=== PATIENT | male | born 1940 | race Caucasian/White ===

== ENCOUNTER → 2016-05-07 | Day surgery (SDC) | payer OTHER ==
[2016-05-03 15:43] VITALS: Ht 170.2 cm; Wt 68.6 kg
[~2016-05-07] VITALS: Ht 170.2 cm; Wt 68.6 kg
[~2016-05-07] MED LIST: ALPR-411 PO; AMIO200T4 PO; APR/25 PO; APR50 PO; ASPI-435 PO; CARV25TA2 PO; CHOL1000 PO; CITA20TA9 PO; CLOP1TAB15 PO; CLR10 PO; CTP1X PO; CYNI1000 IM; DOCU-94 PO; FLUT0.15 NAE; FLV1 PO; FURO-85 PO; GUAI1TAB68 PO; LEVO50TA6 PO; LIDOCAINE HCL 2% 2 ML VIAL (20MG/ML) ONE; LOSA50TA6 PO; MELA1TAB5 PO; MIDAZOLAM HCL 1 MG/ML 2ML VIAL ONE; MULT-513 PO; MULT-845 PO; PANT40TA PO; POLY335019 PO; POTA1POW PO; POTA20TA16 PO; PRAV20TA PO; PROM12.57 PO; PROPOFOL IV EMULSION 10 MG/ML 20 ML VIAL IV ONE; PRVC/20 PO; SDMC1 PO; SODIUM CHLORIDE 0.9% 500ML 500 ML IV ONE; SULF500T36 PO; TAMS0.4C38 PO; TRAZ50TA35 PO; VITAMIN B12 INJ INJ
--- NOTE | 2016-05-07 10:14 | Endo History and Physical ---
History & Physical Date of Service: May 07, 2016. Chief Complaint: Dysphagia, Esohageal stricture Referring Physician: Dr Agee History of Present Illness History of ulcerative colitis, dysphagia Past Medical History Gastrointestinal Disorder, Anxiety, CABG, Hypertension, CVA/TIA Past Surgical History Hx Cardiac Surgery: Yes (CABG X3 VESSELS) Hx Internal Defibrillator: No Hx Pacemaker: No Hx Abdominal Surgery: Yes (PARTIAL GASTRECTOMY) Hx of Implantable Prosthesis: No Hx Post-Op Nausea and Vomiting: No Hx Cancer Surgery: No Hx Thoracic Surgery: No Hx Orthopedic: Yes (BLT FOOT SURGERY, BACK SURGERY X2, RT SHOULDER SCOPE) Hx Urinary Tract Surgery: No Family History None Social History Smoking Status: Former Smoker Hx Substance Use: No Hx Alcohol Use: No Allergies Coded Allergies: Amlodipine (Unverified Adverse Reaction, Intermediate, lower leg edema, 05/07/16) Pseudoephedrine (Verified Adverse Reaction, Mild, INTOLERANCE-URINARY RETENTION, 05/07/16) Current Medications Reported Home Medications Medications Dose Route/Sig Max Daily Dose Days Date Category Dose Instructions Flonase Allergy Relief (Fluticasone Propionate (Nasal)) 50 Mcg/Act Spr 2 Sprays CASEY QAM 04/22/16 Reported Mvi With Minerals (Multivitamins/Minerals) Tab 1 Tab PO QAM 04/22/16 Reported [Vitamin B12 Inj] 1 Dose INJ QMONTH 02/23/16 Reported LAST INJECTION 05-03-16 Centrum Silver Adult 50+ (Multiple Vitamins W/ Minerals) 1 Tab Tab 1 Tab PO QAM 02/23/16 Reported Phenergan (Promethazine HCl) 12.5 Mg Tab 25 Mg PO Q6H PRN 02/23/16 Reported PATIENT DAUGHTER REPORTS DR BOOKER PRESCRIBED FOR PATIENT FOLLOWING SURGERY - NOT CURRENTLY TAKING Colace (Docusate Sodium) 100 Mg Cap 1 Cap PO BID PRN 02/23/16 Reported Klor-Con Pwd (Potassium Chloride) 20 Meq Pack 20 Meq PO QAM 12/13/15 Reported Sodium Chloride 1 Gm Tab 1 Gm PO BID 12/13/15 Reported Cordarone (Amiodarone Hcl) 200 Mg Tab 200 Mg PO QAM 12/13/15 Reported Celexa (Citalopram Hydrobromide) 20 Mg Tab 30 Mg PO 1300 PRN 12/13/15 Reported Protonix (Pantoprazole Sodium) 40 Mg Tab 40 Mg PO 1300 12/13/15 Reported Hydralazine HCl 25 Mg Tab 25 Mg PO BID 12/13/15 Reported Cozaar (Losartan Potassium) 50 Mg Tab 100 Mg PO QAM 12/13/15 Reported Trazodone (Trazodone HCl) 50 Mg Tab 50 Mg PO HS PRN 12/13/15 Reported Clonidine HCl 0.1 Mg Tab 0.2 Mg PO BID 10/06/15 Reported Xanax (Alprazolam) 0.5 Mg Tab 0.5 Mg PO BID PRN 10/06/15 Reported Plavix (Clopidogrel Bisulfate) 75 Mg Tab 75 Mg PO QAM 10/06/15 Reported Pravastatin Sodium (Pravastatin Sod) 20 Mg Tab 20 Mg PO HS 10/06/15 Reported Aspirin 81 (Aspirin) 81 Mg Tab 81 Mg PO QAM 10/06/15 Reported Coreg (Carvedilol) 25 Mg Tab 0.5 Tab PO BID PRN 12/22/13 Reported ONLY IF PULSE >60 Folic Acid 1 Mg Tab 1 Mg PO QPM 12/22/13 Reported Azulfidine (Sulfasalazine) 500 Mg Tab 500 Mg PO QID 08/05/08 Reported Vital Signs Weight (Kilograms): 68.64 Height (Feet): 5 Height (Inches): 7 Date Time Temp Pulse Resp B/P Pulse Ox O2 Delivery O2 Flow Rate FiO2 05/07/16 08:45 36.2 75 16 241/119 94 Room Air Physical Exam General Appearance: WD/WN, no apparent distress (chronically ill appearing) Respiratory/Chest: Auscultation: breath sounds normal, no wheezing Cardiovascular: Heart Auscultation: RRR, no murmurs Assessment and Plan For EGD and colonoscopy.
--- NOTE | 2016-05-07 11:20 | Anesthesiology Progress Note ---
Anesthesia Post Op Note Date & Time May 07, 2016 at 11:20 Vital Signs Pain Intensity: 0 Vital Signs Past 12 Hours Date Time Temp Pulse Resp B/P Pulse Ox O2 Delivery O2 Flow Rate FiO2 05/07/16 08:45 36.2 75 16 241/119 94 Room Air Notes Mental Status: alert / awake / arousable, participated in evaluation Pt Amnestic to Procedure: Yes Nausea / Vomiting: adequately controlled Pain: adequately controlled Airway Patency, RR, SpO2: stable & adequate BP & HR: stable & adequate Hydration State: stable & adequate Anesthetic Complications: no major complications apparent
--- NOTE | 2016-05-07 11:25 | Discharge Instructions ---
Endoscopy Patient Instructions Date / Procedure(s) Performed May 07, 2016. Colonoscopy, EGD Allergy Information Coded Allergies: Amlodipine (Unverified Adverse Reaction, Intermediate, lower leg edema, 05/07/16) Pseudoephedrine (Verified Adverse Reaction, Mild, INTOLERANCE-URINARY RETENTION, 05/07/16) Discharge Date / Findings May 07, 2016. Lorena esophagitis, normal appearing colon Medication Instructions Stopped Medication(s): PLAVIX Restart Stopped Medication(s): Restart all medications today. Provider Instructions Activity Restrictions - No exercising or heavy lifting for 24 hours. - Do not drink alcohol the day of the procedure. - Do not drive a car or operate machinery until the day after the procedure. - Do not make any important decisions or sign important papers in 24 hours after the procedure. Following Day: - Return to full activity which may include returning to work/school. Diet Start your diet with liquids and light foods (jello, soup, juice, toast). Then eat your usual diet if not nauseated. Treatment For Common After Affects For mild abdominal pain, bloating, or excessive gas: - Rest - Eat lightly - Lie on right side Nystatin swish and swallow for two weeks Follow-Up Information Follow-up with Dr Agee as scheduled Anesthesia Information What You Should Know You have had a procedure that required some medicine to reduce anxiety and discomfort. This treatment is called moderate sedation. After receiving the treatment, you may be sleepy, but you will be able to breathe on your own. The effects of the treatment may last for several hours. Follow these instructions along with Activity/Diet recommendations noted above: * Do NOT do anything where dizziness or clumsiness would be dangerous. * Rest quietly at home today, then you can be up and about tomorrow. * Have a responsible person stay with you the rest of today. * You may have had an I.V. today. If so, you may take the dressing off later today. Recommendations Call your doctor if: * Trouble breathing * Continuous vomiting for more than 24 hours * Temperature above 101 degrees * Severe abdominal pain or bloating * Pain not relieved by pain medicine ordered * There is increased drainage or redness from any incision * A large amount of rectal bleeding greater than 2-3 tablespoons. (If you had a polyp/s removed or have hemorrhoids, a small amount of blood - from the rectum is to be expected.) * You have any unanswered questions or concerns. IN THE EVENT OF A SERIOUS EMERGENCY, GO TO THE NEAREST EMERGENCY ROOM Your discharge instructions were prepared by provider Fabrice Ba. Patient Instructions Signature Page Gustavo Gonzales Patient (or Guardian) Signature/Date: I have read and understand the instructions given to me by my caregivers. Caregiver/RN/Doctor Signature/Date: The above-named patient and/or guardian has received patient instructions on this date. + Original Patient Signature Page (only) stays with chart. Please make copy for patient.
[2016-05-07 11:48] VITALS: BP 206/95; PULSE 67; O2SAT 96
--- NOTE | 2016-05-08 00:45 | GI REPORT ---
Procedure Date: 05/07/2016 9:37 AM Procedure: Colonoscopy Indications: High risk colon cancer surveillance: Ulcerative left sided colitis Medicines: Monitored Anesthesia Care Complications: No immediate complications. Estimated blood loss: None. Estimated Blood Loss: Estimated blood loss: none. Procedure: Pre-Anesthesia Assessment: - Prior to the procedure, a History and Physical was performed, and patient medications, allergies and sensitivities were reviewed. The patient's tolerance of previous anesthesia was reviewed. - ASA Grade Assessment: IV - A patient with severe systemic disease that is a constant threat to life. After I obtained informed consent, the scope was passed under direct vision. Throughout the procedure, the patient's blood pressure, pulse, and oxygen saturations were monitored continuously. The On-site loaner was introduced through the anus and advanced to the cecum, identified by appendiceal orifice and ileocecal valve. The colonoscopy was performed with difficulty due to unsatisfactory bowel prep. The patient tolerated the procedure well. The quality of the bowel preparation was fair. The bowel preparation used was split dose MIralax. Findings: Normal mucosa was found in the entire colon. Two biopsies were taken every 10 cm with a cold forceps from the entire colon for ulcerative colitis surveillance. These biopsy specimens from the entire colon were sent to Pathology. Verification of patient identification for the specimen was done by the physician and nurse using the patient's name, date and medical record number. Impression: - Normal mucosa in the entire examined colon. Biopsied. - The colon was otherwise normal to the terminal ileum with retroflexed views of the colon and terminal ileum. Recommendation: - Await pathology results. Fabrice Ba M.D. Fabrice Ba MD 05/07/2016 11:14:00 AM This report has been signed electronically. Note Initiated On: 05/07/2016 9:37 AM I attest to the content of the Intraoperative Record and orders documented therein, exceptions below
--- NOTE | 2016-05-08 00:45 | GI REPORT ---
Procedure Date: 05/07/2016 9:38 AM Procedure: Upper GI endoscopy Indications: Dysphagia Medicines: Monitored Anesthesia Care Complications: No immediate complications. Estimated blood loss: None. Estimated Blood Loss: Estimated blood loss: none. Procedure: Pre-Anesthesia Assessment: - Prior to the procedure, a History and Physical was performed, and patient medications, allergies and sensitivities were reviewed. The patient's tolerance of previous anesthesia was reviewed. - ASA Grade Assessment: IV - A patient with severe systemic disease that is a constant threat to life. After obtaining informed consent, the endoscope was passed under direct vision. Throughout the procedure, the patient's blood pressure, pulse, and oxygen saturations were monitored continuously. The Scope was introduced through the mouth, and advanced to the second part of duodenum. The upper GI endoscopy was accomplished with ease. The patient tolerated the procedure well. Findings: Esophagitis was found. Cells for cytology were obtained by brushing. The Z-line was regular and was found 38 cm from the incisors. A small hiatus hernia was present. Evidence of a patent Billroth I gastroduodenostomy was found. A gastric pouch with a normal size was found containing bile. The gastroduodenal anastomosis was characterized by healthy appearing mucosa. This was traversed. The examined duodenum was normal. Verification of patient identification for the specimen was done by the physician and nurse using the patient's name, date and medical record number. Impression: - Candidiasis esophagitis. Cells for cytology obtained. - Z-line regular, 38 cm from the incisors. - Small hiatus hernia. - Patent Billroth I gastroduodenostomy was found, characterized by healthy appearing mucosa. - Normal examined duodenum. Recommendation: - Await pathology results. - Perform a colonoscopy today. Fabrice Ba M.D. Fabrice Ba MD 05/07/2016 11:03:11 AM This report has been signed electronically. Note Initiated On: 05/07/2016 9:38 AM I attest to the content of the Intraoperative Record and orders documented therein, exceptions below
== END | disposition home or self-care (01) ==
LOC: C.GI 08:14
PROVIDERS: ATTEND Internal Medicine Gastroenterology
DX: Z12.11 Encounter for screening for malignant neoplasm of colon (principal); K63.89 Other specified diseases of intestine; K51.90 Ulcerative colitis, unspecified, without complications; B37.81 Candidal esophagitis; R13.10 Dysphagia, unspecified; K44.9 Diaphragmatic hernia without obstruction or gangrene; Z98.0 Intestinal bypass and anastomosis status

== ENCOUNTER 2016-09-08 19:04 | Inpatient (IN) | payer OTHER ==
[~2016-09-08] VITALS: Ht 167.6 cm; Wt 64.6 kg
[~2016-09-08 19:04] MED LIST changes: -APR50 PO; -CHOL1000 PO; -CLR10 PO; -CYNI1000 IM; -FURO-85 PO; -GUAI1TAB68 PO; -LEVO50TA6 PO; -LIDOCAINE HCL 2% 2 ML VIAL (20MG/ML) ONE; -MELA1TAB5 PO; -MIDAZOLAM HCL 1 MG/ML 2ML VIAL ONE; -POLY335019 PO; -POTA20TA16 PO; -PRAV20TA PO; -PROPOFOL IV EMULSION 10 MG/ML 20 ML VIAL IV ONE; -SODIUM CHLORIDE 0.9% 500ML 500 ML IV ONE; -TAMS0.4C38 PO
[2016-09-08] MEDS ORDERED: SODIUM CHLORIDE 0.9% 1000ML 1,000 ML IV STA (19:28)
[2016-09-08] MEDS ORDERED: SODIUM CHLORIDE 0.9% 1000ML 250 ML IV STA (19:28)
--- NOTE | 2016-09-08 19:32 | EMERGENCY ROOM VISIT NOTE ---
History Report prepared by Destiney: Paris Moffett Under the Supervision of: Dr. Conrad White M.D. First contact with patient: 19:09 Chief Complaint: FALL Stated Complaint: STOKE HX,FELL IN BATHROOM History of Present Illness The patient is a 76 year old male who presents to the Emergency Room with complaints of an episode of a fall beginning just [employer]. The patient states that he was seen in the hospital in [place] a few days ago a for congestion, cough, and sinus issues. He notes that at [place] they told him that he had fluid around his gallbladder and did a CT scan and blood work that showed gall stones. He reports that just [employer] he was going to the bathroom and leaned forward on the toilet to grab his suspenders and fell forward off of the toilet. The patient states that he landed on his back and hit the right side of his head. He complains of nausea beginning a couple of days ago, vomiting, shortness of breath, cough, and weakness since coming back from [place]. He denies any loss of consciousness, urinary symptoms, chest pain, bloody stools, and black stools. The patient notes a history of 3 strokes and states that he is on Plavix. He reports that his most recent stroke was 1 year ago and he has chronic right sided weakness. He notes that he has renal artery stenosis and had a stent placed. The patient's family notes that he has been changing his blood pressure medications and since the medications changed he has been weak. They report that he had his esophagus stretched in May and has some chronic difficulty swallowing following his strokes. Source of History: patient, family Onset: just [employer] Position: other (global) Quality: other (fall) Timing: other (episode) Associated Symptoms: + cough, + SOB, + nausea, + vomiting, + weakness, No LOC, No chest pain, No urinary symptoms Note: Pt denies any bloody stools and black stools. Review of Systems See HPI for pertinent positives & negatives. A total of 10 systems reviewed and were otherwise negative. Past Medical & Surgical Medical Problems: (1) Anxiety (2) Atrial Fibrillation (3) Benign neoplasm of colon (4) CAD (coronary artery disease) (5) Chronic diastolic CHF (congestive heart failure) (6) Dyslipidemia (7) Esophagitis (8) History of atrial fibrillation (9) History of CVA (cerebrovascular accident) (10) Hypertension Nos (11) Hypertrophy (Benign) Of Prostate W/O Urinary Obst & Oth Luts (12) Hyponatremia (13) Hypotensive episode (14) Mild valvular heart disease (15) Peripheral vascular disease (16) Personal Hx Of Tia,& Cerebral Infarction W/Out Res Deficits (17) Ulcerative colitis Surgical Problems: (1) History of esophagogastroduodenoscopy (EGD) (2) S/P CABG x 2 (3) S/p lumbar hemilaminectomy (4) S/p partial stomach removal with vagotomy Old medical records were reviewed. Nurse's notes were reviewed and I agree with. Family History Hypertension Social History Smoking Status: Never Smoker Drug Use: none Marital Status: Occupation Status: retired Current/Historical Medications Scheduled Amiodarone Hcl (Cordarone), 200 MG PO QAM Aspirin (Aspirin 81), 81 MG PO QAM Cholecalciferol (Vitamin D3), 1 TAB PO DAILY Clonidine HCl (Clonidine HCl), 0.2 MG PO BID Clopidogrel (Plavix), 75 MG PO QAM Cyanocobalamin (Cyanocobalamin), 1 ML IM MONTHLY Docusate Sodium (Colace), 1 CAP PO BID Fluticasone Propionate (Nasal) (Flonase Allergy Relief), 2 SPRAYS CASEY QAM Folic Acid (Folic Acid), 1 MG PO QPM Furosemide (Lasix), 20 MG PO DAILY Hydralazine HCl (Hydralazine HCl), 25 MG PO BID Losartan Potassium (Cozaar), 100 MG PO QAM Multiple Vitamins W/ Minerals (Centrum Silver Adult 50+), 1 TAB PO QAM Pantoprazole (Protonix), 40 MG PO QAM Potassium Ext Rel (Klor-Con), 30 MEQ PO DAILY Pravastatin (Pravachol ), 20 MG PO QAM Sulfasalazine (Azulfidine), 500 MG PO QID Tamsulosin Hcl (Flomax), 0.4 MG PO BID Scheduled PRN Alprazolam (Xanax), 0.5 MG PO DAILY PRN for Anxiety Carvedilol (Coreg), 0.5 TAB PO BID PRN for PULSE >60 Loratadine (Claritin), 10 MG PO for Nasal Congestion Melatonin (Kp Melatonin), 1 TAB PO for Insomnia Polyethylene Glycol 3350 (Miralax), 17 GM PO for Constipation Trazodone Hcl (Trazodone), 50 MG PO HS PRN for Sleep Allergies Coded Allergies: Amlodipine (Unverified Adverse Reaction, Intermediate, lower leg edema, 09/08/16) Pseudoephedrine (Verified Adverse Reaction, Mild, INTOLERANCE-URINARY RETENTION, 09/08/16) Physical Exam Vital Signs Date Time Temp Pulse Resp B/P (MAP) Pulse Ox O2 Delivery O2 Flow Rate FiO2 09/08/16 20:43 75 18 199/116 96 Room Air 09/08/16 19:39 77 09/08/16 19:05 36.5 44 20 222/94 89 Room Air Physical Exam General: Well developed well nourished chronically ill appearing older male in no acute distress, breathing comfortably on room air. Normal speech HEENT: Small abrasion to the right scalp. Pupils are equal round and reactive to light. Extraocular movements are intact. Oropharynx is pink with moist mucous membranes. No swelling of the mouth lips or tongue. Neck: Supple with a midline trachea. No meningeal signs or stiffness, no JVD or bruits. No Stridor. Chest: Clear to auscultation bilaterally. No wheezes or rhonchi. No increased work of breathing. Heart: regular rate and rhythm. Abdomen: Soft nontender, nondistended without rebound guarding or rigidity. Extremities: No cyanosis clubbing or edema. No calf tenderness or assymetry. Baseline weakness of right arm and to lesser extent of the right leg Spine/Back. Non tender to palpation. No CVA tenderness Skin: Good turgor without rashes. Neurologic exam: Cranial nerves two through 12 are intact. Motor and sensation are intact Medical Decision & Procedures ER Provider Diagnostic Interpretation: Radiology results as stated below per my review and radiologist interpretation: CT SCAN OF THE BRAIN WITHOUT IV CONTRAST FINDINGS: Brain parenchyma: There are age-related involutional changes noting moderate to advanced subcortical and periventricular microangiopathic change. There is no hemorrhage, mass effect, or evidence of acute territorial ischemia by CT criteria. A chronic lacunar infarct is identified in the left basal ganglia. Peña-white matter is preserved. No extra-axial fluid collection is seen. Ventricles, sulci, cisterns: Prominent secondary to involutional change. Intracranial vasculature: There is atherosclerotic calcification of the cavernous carotid and vertebral arteries. Calvarium: The skeletal structures are osteopenic. There is no depressed calvarial fracture. Sinuses and mastoids: The visualized paranasal sinuses are clear. The mastoid air cells are well pneumatized. Orbits: The bony orbits are grossly intact. IMPRESSION: Senescent changes as above with no hemorrhage, mass effect, or evidence of acute territorial ischemia by CT criteria. Electronically signed by: Norman Ahumada M.D. 09/08/2016 8:21 PM Dictated Date/Time: 09/08/2016 8:19 PM SINGLE VIEW CHEST FINDINGS: An AP, portable, upright chest radiograph is compared to study dated 10/06/2015. The examination is degraded by portable technique and patient rotation. The patient is status post midline sternotomy. The heart is enlarged and there is atherosclerotic calcification of the thoracic aorta. Pulmonary vascular structures noncongested. Chronic interstitial thickening and mild elevation of the right hemidiaphragm are similar to previous. There is bibasilar atelectasis. No airspace consolidation, large pleural effusion, or pneumothorax is seen. The skeletal structures are osteopenic. The bony thorax is grossly intact. Surgical clips project over the gastroesophageal junction. Atherosclerotic calcification is noted in the carotid bulbs. IMPRESSION: Cardiomegaly with no acute cardiopulmonary abnormality. Electronically signed by: Norman Ahumada M.D. 09/08/2016 8:23 PM Dictated Date/Time: 09/08/2016 8:21 PM Laboratory Results 09/08/16 19:50 Red Blood Count 3.90, Mean Corpuscular Volume 84.1, Mean Corpuscular Hemoglobin 31.8, Mean Corpuscular Hemoglobin Concent 37.8, Mean Platelet Volume 8.7, Neutrophils (%) (Auto) 68.0, Lymphocytes (%) (Auto) 11.8, Monocytes (%) (Auto) 16.4, Eosinophils (%) (Auto) 1.7, Basophils (%) (Auto) 0.4, Neutrophils # (Auto ) 3.71, Lymphocytes # (Auto) 0.64, Monocytes # (Auto) 0.89, Eosinophils # (Auto ) 0.09, Basophils # (Auto) 0.02 09/08/16 19:50 Test 09/08/16 19:50 09/08/16 20:00 09/08/16 20:05 White Blood Count 5.44 K/uL (4.8-10.8) Red Blood Count 3.90 M/uL (4.7-6.1) Hemoglobin 12.4 g/dL (14.0-18.0) Hematocrit 32.8 % (42-52) Mean Corpuscular Volume 84.1 fL (80-100) Mean Corpuscular Hemoglobin 31.8 pg (25-34) Mean Corpuscular Hemoglobin Concent 37.8 g/dl (32-36) Platelet Count 132 K/uL (130-400) Mean Platelet Volume 8.7 fL (7.4-10.4) Neutrophils (%) (Auto) 68.0 % Lymphocytes (%) (Auto) 11.8 % Monocytes (%) (Auto) 16.4 % Eosinophils (%) (Auto) 1.7 % Basophils (%) (Auto) 0.4 % Neutrophils # (Auto) 3.71 K/uL (1.4-6.5) Lymphocytes # (Auto) 0.64 K/uL (1.2-3.4) Monocytes # (Auto) 0.89 K/uL (0.11-0.59) Eosinophils # (Auto) 0.09 K/uL (0-0.5) Basophils # (Auto) 0.02 K/uL (0-0.2) RDW Standard Deviation 41.3 fL (36.4-46.3) RDW Coefficient of Variation 13.7 % (11.5-14.5) Immature Granulocyte % (Auto) 1.7 % Immature Granulocyte # (Auto) 0.09 K/uL (0.00-0.02) Anion Gap 11.0 mmol/L (3-11) Est Creatinine Clear Calc Drug Dose 87.2 ml/min Estimated GFR () 109.7 Estimated GFR (Non- 94.7 BUN/Creatinine Ratio 22.4 (10-20) Calcium Level 8.0 mg/dl (8.5-10.1) Total Bilirubin 1.1 mg/dl (0.2-1) Direct Bilirubin 0.3 mg/dl (0-0.2) Aspartate Amino Transf (AST/SGOT) 15 U/L (15-37) Alanine Aminotransferase (ALT/SGPT) 23 U/L (12-78) Alkaline Phosphatase 93 U/L (45-117) Total Protein 5.9 gm/dl (6.4-8.2) Albumin 3.8 gm/dl (3.4-5.0) Lipase 106 U/L (73-393) Bedside Troponin I < 0.030 ng/ml (0-0.045) Urine Color DK YELLOW Urine Appearance CLEAR (CLEAR) Urine pH 7.5 (4.5-7.5) Urine Specific [place] 1.015 (1.000-1.030) Urine Protein NEG (NEG) Urine Glucose (UA) NEG (NEG) Urine Ketones NEG (NEG) Urine Occult Blood NEG (NEG) Urine Nitrite NEG (NEG) Urine Bilirubin NEG (NEG) Urine Urobilinogen NEG (NEG) Urine Leukocyte Esterase TRACE (NEG) Urine WBC (Auto) 1-5 /hpf (0-5) Urine RBC (Auto) 0-4 /hpf (0-4) Urine Hyaline Casts (Auto) 0 /lpf (0-5) Urine Epithelial Cells (Auto) 0-5 /lpf (0-5) Urine Bacteria (Auto) NEG (NEG) Laboratory studies as stated above per my review. Medications Administered Medications (Trade) Dose Ordered Sig/Mary Route Start Time Stop Time Status Last Admin Dose Admin Sodium Chloride 250 ml @ 999 mls/hr Q16M STAT IV 09/08/16 19:28 09/08/16 20:57 DC 09/08/16 20:27 999 MLS/HR Sodium Chloride 1,000 ml @ 100 mls/hr Q10H STAT IV 09/08/16 19:28 09/08/16 20:57 DC 09/08/16 20:45 100 MLS/HR Sodium Chloride 500 ml @ 999 mls/hr Q31M STAT IV 09/08/16 20:51 09/08/16 21:21 DC 09/08/16 21:05 999 MLS/HR Hydralazine HCl (Apresoline Tab) 25 mg NOW STAT PO 09/08/16 21:14 09/08/16 21:39 DC 09/08/16 21:57 25 MG Lorazepam (Ativan Inj) 0.5 mg NOW STAT IV 09/08/16 21:18 09/08/16 21:39 DC 09/08/16 21:56 0.5 MG Furosemide (Lasix Inj) 20 mg ONE STAT IV 09/08/16 21:40 09/08/16 21:41 DC 09/08/16 21:57 20 MG ECG Indication: other (fall) Rate (beats per minute): 74 Rhythm: normal sinus Findings: other (T wave abnormalities laterally) Comparison ECG Date: 02/23/16 Change: T wave abnormalities more pronounced compared to previous. ED Course 1908: Past medical records reviewed. The patient was evaluated in room C9, and a complete history and physical examination were performed. 1927: Sodium Chloride 1000 ml @ 100 mls/hr IV, Sodium Chloride 250 ml @ 999 mls/ hr IV. 2050: Sodium Chloride 500 ml @ 999 mls/hr IV. 2053: I spoke to Dr. Mosley of [facility]. He will evaluate the patient for further management. 2057: Upon reevaluation, the patient is doing well. I discussed the results and treatment plan with the patient. He verbalized agreement of the treatment plan. The patient will be evaluated for further management. Medical Decision Differential diagnosis includes traumatic injuries, infection, anemia, electrolyte or metabolic abnormality. Medication Reconciliation: I attest that I have personally reviewed the patient' s current medication list. Blood pressure Screening: Patient was found to have an elevated blood pressure and was referred to their primary doctor for recheck and further treatment. This patient comes in as described above his placed in room C9. He had a mechanical fall today and struck his head he is on Plavix. In regards to his fall he looks well has baseline weakness on his right arm and a lesser degree the right leg but no acute findings he is a Valentine Coma Score 15. CAT scan his has unremarkable. I did an extensive workup additionally because the family says that he's been very weak since he was discharged from [facility] on September 03. His sodium came back significantly low at 119. He was hydrated with IV normal saline gently while he was here. He has nothing to suggest acute coronary syndrome or arrhythmia. He has nothing to suggest sepsis. Looking back through his chart, he has had low sodium before and was treated for that and followed by Dr. Merritt and he has been on sodium pills and water restriction in the past according to the family. His last documented sodium here was 130. I do think he needs to be admitted for further treatment and evaluation of his hyponatremia and this certainly is causing his weakness. The patient's family was happy with the plan and he was admitted the [facility] hospitalist service. Consults Time Called: 2049 Consulting Physician: Dr. Dimitri Barrera Returned Call: [address] Mosley of [facility]. He will evaluate the patient for further management. Impression Primary Impression: Hyponatremia Additional Impressions: Weakness Fall Scribe Attestation The scribe's documentation has been prepared under my direction and personally reviewed by me in its entirety. I confirm that the note above accurately reflects all work, treatment, procedures, and medical decision making performed by me. Departure Information Dispostion Being Evaluated By Hospitalist Referrals Natalie Agee M.D. (PCP) Patient Instructions My [facility] Problem Qualifiers
[2016-09-08 20:01] LABS: BASO % 0.4 %; BASO ABS # 0.02 K/uL (0-0.2); COMPLETE YES; EOS % 1.7 %; HEMATOCRIT 32.8 % (42-52); IG% 1.7 %; LYMPH % 11.8 %; LYMPH ABS # 0.64 K/uL (1.2-3.4); MEAN CELL VOLUME 84.1 fL (80-100); MEAN CORPUSCULAR HEMOGLOBIN 31.8 pg (25-34); MEAN CORPUSCULAR HGB CONC 37.8 g/dl (32-36); MEAN PLATELET VOLUME 8.7 fL (7.4-10.4); MONO % 16.4 %; PLATELET COUNT 132 K/uL (130-400); WHITE BLOOD COUNT 5.44 K/uL (4.8-10.8)
--- NOTE | 2016-09-08 20:23 | DIAGNOSTIC IMAGING REPORT ---
CT SCAN OF THE BRAIN WITHOUT IV CONTRAST CLINICAL HISTORY: Fall. COMPARISON STUDY: CT of the brain dated 08/08/2008 TECHNIQUE: Unenhanced axial CT scan of the brain is performed from the vertex to the skull base. CT DOSE: 537.48 mGy.cm FINDINGS: Brain parenchyma: There are age-related involutional changes noting moderate to advanced subcortical and periventricular microangiopathic change. There is no hemorrhage, mass effect, or evidence of acute territorial ischemia by CT criteria. A chronic lacunar infarct is identified in the left basal ganglia. Peña-white matter is preserved. No extra-axial fluid collection is seen. Ventricles, sulci, cisterns: Prominent secondary to involutional change. Intracranial vasculature: There is atherosclerotic calcification of the cavernous carotid and vertebral arteries. Calvarium: The skeletal structures are osteopenic. There is no depressed calvarial fracture. Sinuses and mastoids: The visualized paranasal sinuses are clear. The mastoid air cells are well pneumatized. Orbits: The bony orbits are grossly intact. IMPRESSION: Senescent changes as above with no hemorrhage, mass effect, or evidence of acute territorial ischemia by CT criteria. Electronically signed by: Norman Ahumada M.D. 09/08/2016 8:21 PM Dictated Date/Time: 09/08/2016 8:19 PM
--- NOTE | 2016-09-08 20:24 | DIAGNOSTIC IMAGING REPORT ---
SINGLE VIEW CHEST CLINICAL HISTORY: Atypical chest pain. Fall. FINDINGS: An AP, portable, upright chest radiograph is compared to study dated 10/06/2015. The examination is degraded by portable technique and patient rotation. The patient is status post midline sternotomy. The heart is enlarged and there is atherosclerotic calcification of the thoracic aorta. Pulmonary vascular structures noncongested. Chronic interstitial thickening and mild elevation of the right hemidiaphragm are similar to previous. There is bibasilar atelectasis. No airspace consolidation, large pleural effusion, or pneumothorax is seen. The skeletal structures are osteopenic. The bony thorax is grossly intact. Surgical clips project over the gastroesophageal junction. Atherosclerotic calcification is noted in the carotid bulbs. IMPRESSION: Cardiomegaly with no acute cardiopulmonary abnormality. Electronically signed by: Norman Ahumada M.D. 09/08/2016 8:23 PM Dictated Date/Time: 09/08/2016 8:21 PM
[2016-09-08 20:26] LABS: URINE APPEARANCE CLEAR (CLEAR); URINE BILIRUBIN NEG (NEG); URINE COLOR DK YELLOW; URINE EPITHELIAL CELL AUTO 0-5 /lpf (0-5); URINE NITRITE NEG (NEG); URINE PH 7.5 (4.5-7.5); URINE SPECIFIC GRAVITY 1.015 (1.000-1.030); UROBILINOGEN NEG (NEG)
[2016-09-08 20:34] LABS: MANUAL MICROSCOPIC REQUIRED? NO; REVIEW REQ? NO
[2016-09-08 20:37] LABS: BUN/CREATININE RATIO 22.4 (10-20); CREATININE 0.67 mg/dl (0.60-1.40); POTASSIUM 3.8 mmol/L (3.5-5.1)
[2016-09-08] MEDS ORDERED: SODIUM CHLORIDE 0.9% 1000ML 500 ML IV STA (20:51)
[2016-09-08] MEDS ORDERED: POTA20TA16 PO (21:01)
[2016-09-08] MEDS ORDERED: CHOL1000 PO (21:03)
[2016-09-08] MEDS ORDERED: FURO-85 PO (21:04)
[2016-09-08] MEDS ORDERED: TAMS0.4C38 PO (21:06)
[2016-09-08] MEDS ORDERED: PRAV20TA PO (21:06)
[2016-09-08] MEDS ORDERED: CYNI1000 IM (21:08)
[2016-09-08] MEDS ORDERED: POLY335019 PO (21:11)
[2016-09-08] MEDS ORDERED: CLR10 PO (21:11)
[2016-09-08] MEDS ORDERED: MELA1TAB5 PO (21:11)
[2016-09-08] MEDS ORDERED: FUROSEMIDE INJ 20 MG in SYRINGE 0 ML IV ONE (21:15)
[2016-09-08] MEDS ORDERED: LORAZEPAM 2 MG/ML 1 ML VIAL IV STA (21:18)
[2016-09-08] MEDS ORDERED: FUROSEMIDE 40 MG/4 ML VIAL IV STA (21:40)
[2016-09-08] MEDS ORDERED: ALUMINUM/MAGNESIUM/SIMETH (MAALOX MAX) 30 ML UDC PO PRN (21:45)
[2016-09-08] MEDS ORDERED: ACETAMINOPHEN 325 MG TAB PO PRN (21:45)
[2016-09-08] MEDS ORDERED: TRAZODONE HCL 50 MG TAB PO PRN (21:45)
[2016-09-08] MEDS ORDERED: ONDANSETRON INJ 2 MG/ML 2 ML VIAL IV PRN (21:45)
[2016-09-08] MEDS ORDERED: MAGNESIUM HYDROXIDE SUSP 30 ML UDC PO PRN (21:45)
[2016-09-08] MEDS ORDERED: POLYETHYLENE (MIRALAX) 17 GM PACK PO PRN (21:45)
[2016-09-08] MEDS ORDERED: CARVEDILOL 12.5 MG TAB PO PRN (21:45)
[2016-09-08 22:15] VITALS: BP 167/93; PULSE 85; TEMP 37.7; Ht 167.6 cm; Wt 64.6 kg
[2016-09-08 22:56] LABS: THYROID STIMULATING HORMONE 2.11 uIu/ml (0.300-4.500); URIC ACID 1.5 mg/dl (2.6-7.2)
[2016-09-08 23:59] LABS: INR 1.1 (0.9-1.1); PROTHROMBIN TIME (PATIENT) 11.3 SECONDS (9.0-12.0)
[2016-09-09] MEDS: SODIUM CHLORIDE 1 GM TAB PO SCH ×4 (00:02→20:17)
--- NOTE | 2016-09-09 00:15 | History and Physical ---
History & Physical Date & Time of Service: Sep 08, 2016 at 23:00 Chief Complaint: Hyponatremia Primary Care Physician: Natalie Agee M.D. History of Present Illness Source: patient, family, clinic records, hospital records This is a 76 year old male with a PMH of CAD s/p CABG, Diastolic CHF, HTN, HLD, renal artery stenosis s/p stenting on the R side, hx. of SIADH; no longer on salt tablets, paroxysmal atrial fibrillation, hx. of multiple CVAs, ulcerative colitis s/p surgeries, B12 deficiency, hypothyroidism - presents with weakness for the past week. He was seen at [place] for this weakness and was told he had worsening ulcerative colitis and then was sent home. He presented here due to significant weakness and was found to have a sodium level of 119. Going through the history, seems like patient has been following with Dr. Merritt, nephrology, for SIADH issues in the past. He had been on fluid restriction and salt tablets in the past and about 6 months ago, this was stopped. He was seen last week at [place] and his sodium level was 129; about a 10 point drop in a week. He states he has been weak, abdominal pain and due to the weakness he fell today. Landed on his back and hit the R side of his face. Did not lose consciousness. Currently he is laying comfortably. Denies fevers/chills, chest pain/shortness of breath/palpitations. Past Medical/Surgical History Medical Problems: (1) Anxiety Status: Chronic (2) Atrial Fibrillation Status: Resolved (3) Benign neoplasm of colon Status: Chronic (4) CAD (coronary artery disease) Status: Chronic (5) Chronic diastolic CHF (congestive heart failure) Status: Chronic (6) Dyslipidemia Status: Chronic (7) Esophagitis Status: Chronic (8) History of atrial fibrillation Status: Chronic (9) History of CVA (cerebrovascular accident) Permanent Comment: with residual RUE and RLE weakness Status: Chronic (10) Hypertension Nos Status: Chronic (11) Hypertrophy (Benign) Of Prostate W/O Urinary Obst & Oth Luts Status: Chronic (12) Mild valvular heart disease Status: Chronic (13) Peripheral vascular disease Status: Chronic (14) Personal Hx Of Tia,& Cerebral Infarction W/Out Res Deficits Status: Resolved (15) Ulcerative colitis Status: Chronic Surgical Problems: (1) History of esophagogastroduodenoscopy (EGD) Status: Chronic (2) S/P CABG x 2 Status: Chronic (3) S/p lumbar hemilaminectomy Status: Chronic (4) S/p partial stomach removal with vagotomy Status: Chronic Family History Hypertension Social History Smoking Status: Never Smoker Drug Use: none Marital Status: Housing status: lives with family Occupational Status: retired Immunizations History of Influenza Vaccine: Yes Influenza Vaccine Date: Dec 06, 2007 History of Tetanus Vaccine?: Unknown History of Pneumococcal: Yes Pneumococcal Date: Dec 06, 2007 History of Hepatitis B Vaccine: Unknown Multi-Drug Resistant Organisms History of MDRO: No Allergies Coded Allergies: Amlodipine (Unverified Adverse Reaction, Intermediate, lower leg edema, 09/08/16) Pseudoephedrine (Verified Adverse Reaction, Mild, INTOLERANCE-URINARY RETENTION, 09/08/16) Home Medications Scheduled Amiodarone Hcl (Cordarone), 200 MG PO QAM Aspirin (Aspirin 81), 81 MG PO QAM Cholecalciferol (Vitamin D3), 1 TAB PO DAILY Clonidine HCl (Clonidine HCl), 0.2 MG PO BID Clopidogrel (Plavix), 75 MG PO QAM Cyanocobalamin (Cyanocobalamin), 1 ML IM MONTHLY Docusate Sodium (Colace), 1 CAP PO BID Fluticasone Propionate (Nasal) (Flonase Allergy Relief), 2 SPRAYS CASEY QAM Folic Acid (Folic Acid), 1 MG PO QPM Furosemide (Lasix), 20 MG PO DAILY Hydralazine HCl (Hydralazine HCl), 25 MG PO BID Losartan Potassium (Cozaar), 100 MG PO QAM Multiple Vitamins W/ Minerals (Centrum Silver Adult 50+), 1 TAB PO QAM Pantoprazole (Protonix), 40 MG PO QAM Potassium Ext Rel (Klor-Con), 30 MEQ PO DAILY Pravastatin (Pravachol ), 20 MG PO QAM Sulfasalazine (Azulfidine), 500 MG PO QID Tamsulosin Hcl (Flomax), 0.4 MG PO BID Scheduled PRN Alprazolam (Xanax), 0.5 MG PO DAILY PRN for Anxiety Carvedilol (Coreg), 0.5 TAB PO BID PRN for PULSE >60 Loratadine (Claritin), 10 MG PO for Nasal Congestion Melatonin (Kp Melatonin), 1 TAB PO for Insomnia Polyethylene Glycol 3350 (Miralax), 17 GM PO for Constipation Trazodone Hcl (Trazodone), 50 MG PO HS PRN for Sleep Review of Systems Constitutional: + weakness, + fatigue, No fever, No chills, No sweats, No weight loss ENT: + nasal symptoms Respiratory: No cough, No sputum, No wheezing, No shortness of breath, No dyspnea on exertion, No dyspnea at rest, No hemoptysis Cardiovascular: No chest pain, No orthopnea, No edema, No palpitations Abdomen: No pain, No nausea, No vomiting, No diarrhea, No constipation, No GI bleeding Musculoskeletal: No joint pain, No muscle pain Genitourinary - Male: No hematuria, No dysuria, No urinary frequency, No urinary urgency, No urinary hesitancy, No urinary retention Psychiatric: + insomnia (controlled with medications), No depression symptoms, No anxiety Endocrine: + fatigue, No excessive thirst, No excessive urination Hematologic / Lymphatic: No abnormal bleeding/bruising Integumentary: No rash Allergic / Immunologic: No environmental allergies, No seasonal allergies Physical Exam Vital Signs Date Time Temp Pulse Resp B/P (MAP) Pulse Ox O2 Delivery O2 Flow Rate FiO2 09/08/16 22:15 82 18 196/113 96 09/08/16 20:43 75 18 199/116 96 Room Air 09/08/16 19:39 77 09/08/16 19:05 36.5 44 20 222/94 89 Room Air General Appearance: no apparent distress Head: normocephalic, atraumatic Eyes: normal inspection ENT: hearing grossly normal Neck: supple Respiratory/Chest: chest non-tender, lungs clear, normal breath sounds, no respiratory distress, no accessory muscle use Cardiovascular: regular rate, rhythm, no edema, no murmur Abdomen/GI: normal bowel sounds, soft, + tenderness (diffuse, generalized weakness) Extremities/Musculoskelatal: normal capillary refill, no pedal edema Neurologic/Psych: facility maintenance helper II-XII nml as tested, no motor/sensory deficits, alert, normal mood/affect, oriented x 3 Skin: normal color Lymphatic: no adenopathy Diagnostics Laboratory Results Results Past 24 Hours Test 09/08/16 19:50 09/08/16 20:00 09/08/16 20:05 09/08/16 21:58 Range/Units White Blood Count 5.44 4.8-10.8 K/uL Red Blood Count 3.90 4.7-6.1 M/uL Hemoglobin 12.4 14.0-18.0 g/dL Hematocrit 32.8 42-52 % Mean Corpuscular Volume 84.1 80-100 fL Mean Corpuscular Hemoglobin 31.8 25-34 pg Mean Corpuscular Hemoglobin Concent 37.8 32-36 g/dl Platelet Count 132 130-400 K/uL Mean Platelet Volume 8.7 7.4-10.4 fL Neutrophils (%) (Auto) 68.0 % Lymphocytes (%) (Auto) 11.8 % Monocytes (%) (Auto) 16.4 % Eosinophils (%) (Auto) 1.7 % Basophils (%) (Auto) 0.4 % Neutrophils # (Auto) 3.71 1.4-6.5 K/uL Lymphocytes # (Auto) 0.64 1.2-3.4 K/uL Monocytes # (Auto) 0.89 0.11-0.59 K/uL Eosinophils # (Auto) 0.09 0-0.5 K/uL Basophils # (Auto) 0.02 0-0.2 K/uL RDW Standard Deviation 41.3 36.4-46.3 fL RDW Coefficient of Variation 13.7 11.5-14.5 % Immature Granulocyte % (Auto) 1.7 % Immature Granulocyte # (Auto) 0.09 0.00-0.02 K/uL Sodium Level 119 136-145 mmol/L Potassium Level 3.8 3.5-5.1 mmol/L Chloride Level 85 98-107 mmol/L Carbon Dioxide Level 23 21-32 mmol/L Anion Gap 11.0 3-11 mmol/L Blood Urea Nitrogen 15 7-18 mg/dl Creatinine 0.67 0.60-1.40 mg/dl Est Creatinine Clear Calc Drug Dose 87.2 ml/min Estimated GFR () 109.7 Estimated GFR (Non- 94.7 BUN/Creatinine Ratio 22.4 10-20 Random Glucose 92 70-99 mg/dl Calcium Level 8.0 8.5-10.1 mg/dl Total Bilirubin 1.1 0.2-1 mg/dl Direct Bilirubin 0.3 0-0.2 mg/dl Aspartate Amino Transf (AST/SGOT) 15 15-37 U/L Alanine Aminotransferase (ALT/SGPT) 23 12-78 U/L Alkaline Phosphatase 93 45-117 U/L Total Protein 5.9 6.4-8.2 gm/dl Albumin 3.8 3.4-5.0 gm/dl Lipase 106 73-393 U/L Bedside Troponin I < 0.030 0-0.045 ng/ml Urine Color DK YELLOW Urine Appearance CLEAR CLEAR Urine pH 7.5 4.5-7.5 Urine Specific [place] 1.015 1.000-1.030 Urine Protein NEG NEG Urine Glucose (UA) NEG NEG Urine Ketones NEG NEG Urine Occult Blood NEG NEG Urine Nitrite NEG NEG Urine Bilirubin NEG NEG Urine Urobilinogen NEG NEG Urine Leukocyte Esterase TRACE NEG Urine WBC (Auto) 1-5 0-5 /hpf Urine RBC (Auto) 0-4 0-4 /hpf Urine Hyaline Casts (Auto) 0 0-5 /lpf Urine Epithelial Cells (Auto) 0-5 0-5 /lpf Urine Bacteria (Auto) NEG NEG Uric Acid 1.5 2.6-7.2 mg/dl Vitamin B12 Level 755 211-911 pg/mL Thyroid Stimulating Hormone (TSH) 2.110 0.300-4.500 uIu/ml Test 09/08/16 22:29 Range/Units Microbiology Results 09/08/16 Urine Culture, Received Pending Diagnostic Radiology CT SCAN OF THE BRAIN WITHOUT IV CONTRAST CLINICAL HISTORY: Fall. COMPARISON STUDY: CT of the brain dated 08/08/2008 TECHNIQUE: Unenhanced axial CT scan of the brain is performed from the vertex to the skull base. CT DOSE: 537.48 mGy.cm FINDINGS: Brain parenchyma: There are age-related involutional changes noting moderate to advanced subcortical and periventricular microangiopathic change. There is no hemorrhage, mass effect, or evidence of acute territorial ischemia by CT criteria. A chronic lacunar infarct is identified in the left basal ganglia. Peña-white matter is preserved. No extra-axial fluid collection is seen. Ventricles, sulci, cisterns: Prominent secondary to involutional change. Intracranial vasculature: There is atherosclerotic calcification of the cavernous carotid and vertebral arteries. Calvarium: The skeletal structures are osteopenic. There is no depressed calvarial fracture. Sinuses and mastoids: The visualized paranasal sinuses are clear. The mastoid air cells are well pneumatized. Orbits: The bony orbits are grossly intact. IMPRESSION: Senescent changes as above with no hemorrhage, mass effect, or evidence of acute territorial ischemia by CT criteria. SINGLE VIEW CHEST CLINICAL HISTORY: Atypical chest pain. Fall. FINDINGS: An AP, portable, upright chest radiograph is compared to study dated 10/06/2015. The examination is degraded by portable technique and patient rotation. The patient is status post midline sternotomy. The heart is enlarged and there is atherosclerotic calcification of the thoracic aorta. Pulmonary vascular structures noncongested. Chronic interstitial thickening and mild elevation of the right hemidiaphragm are similar to previous. There is bibasilar atelectasis. No airspace consolidation, large pleural effusion, or pneumothorax is seen. The skeletal structures are osteopenic. The bony thorax is grossly intact. Surgical clips project over the gastroesophageal junction. Atherosclerotic calcification is noted in the carotid bulbs. IMPRESSION: Cardiomegaly with no acute cardiopulmonary abnormality. EKG Normal sinus rhythm Indeterminate axis Low voltage QRS ST & T wave abnormality, consider lateral ischemia Abnormal ECG When compared with ECG of 23-FEB-2016 11:37, CT interval has decreased Inverted T waves have replaced nonspecific T wave abnormality in Lateral leads Impression Assessment and Plan This is a 76 year old male with a PMH of CAD s/p CABG, Diastolic CHF, HTN, HLD, renal artery stenosis s/p stenting on the R side, hx. of SIADH; no longer on salt tablets, paroxysmal atrial fibrillation, hx. of multiple CVAs, ulcerative colitis s/p surgeries, B12 deficiency, hypothyroidism presents with weakness; found to have severe hyponatremia 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 of SIADH, no longer fluid restricted and on salt tablets as outpatient will check urine osm, serum osm, ADH, random urine sodium, TSH was given one L NS bolus in the ER will stop fluids give one dose of Lasix 20mg IV fluid restriction salt tablets TID PRP q4 hours nephrology consultation PT/OT/discharge planning eval Hypertensive Urgency blood pressure >200/100 on admission patient is on multiple medications for blood pressure as outpatient will give one dose of Lasix, one dose of Hydralazine for now monitor BP in tele; continue home meds, adjust these as needed avoid thiazides due to hyponatremia, avoiding CCB due to lower extremity edema may adjust clonidine, coreg doses if needed CAD s/p CABG x3 no chest pain, monitor in tele continue aspirin, Plavix, b-millie, statin Paroxysmal A. Fib continue amiodarone currently in NSR Renal Artery Stenosis s/p R renal artery stenting at [place] continue aspirin and Plavix Hx. of CVA continue Plavix + Aspirin Diastolic CHF continue Lasix daily - may need dose adjustment due to SIADH Hypothyroidism TSH wnl continue Synthroid DVT ppx subq heparin FULL CODE VTE Prophylaxis VTE Risk Assessment Done? Y/N: Yes Risk Level: High
[2016-09-09 01:54] LABS: URIC ACID RANDOM URINE 6.5 mg/dl
[2016-09-09] MEDS: TRAZODONE HCL 50 MG TAB PO PRN (03:34)
[2016-09-09 04:01] LABS: HEMATOCRIT 31.3 % (42-52); MEAN CELL VOLUME 84.1 fL (80-100); MEAN CORPUSCULAR HEMOGLOBIN 30.4 pg (25-34); MEAN CORPUSCULAR HGB CONC 36.1 g/dl (32-36); MEAN PLATELET VOLUME 8.6 fL (7.4-10.4); PLATELET COUNT 127 K/uL (130-400); RED BLOOD COUNT 3.72 M/uL (4.7-6.1); WHITE BLOOD COUNT 5.51 K/uL (4.8-10.8)
[2016-09-09 04:14] VITALS: BP 168/64; PULSE 76; TEMP 36.7; O2SAT 94
[2016-09-09 04:19] LABS: CALCIUM 7.7 mg/dl (8.5-10.1); CREATININE 0.56 mg/dl (0.60-1.40); MAGNESIUM 1.6 mg/dl (1.8-2.4); POTASSIUM 3.3 mmol/L (3.5-5.1)
[2016-09-09] MEDS ORDERED: POTASSIUM CHLORIDE 10 MEQ TABCR PO STA (04:57)
[2016-09-09] MEDS ORDERED: MAGNESIUM SULFATE 1GM / D5W 1 GM in PREMIXED IN D5W 100 ML IV SCH (05:00)
[2016-09-09] MEDS: LEVOTHYROXINE 50 MCG TAB PO SCH (05:09)
[2016-09-09] MEDS: HEPARIN SOD 5000 UNIT/0.5 ML CARP SQ SCH ×3 (05:15→20:22)
[2016-09-09 07:31] VITALS: BP 177/89; PULSE 76; TEMP 36.5; O2SAT 92
[2016-09-09] MEDS: CLOPIDOGREL BISULFATE 75 MG TAB PO SCH (08:18)
[2016-09-09] MEDS: FUROSEMIDE 20 MG TAB PO SCH (08:19)
[2016-09-09] MEDS: CLONIDINE HCL 0.1 MG TAB PO SCH ×2 (08:19→20:17)
[2016-09-09] MEDS: LOSARTAN POTASSIUM 50 MG TAB PO SCH (08:19)
[2016-09-09] MEDS: DOCUSATE SODIUM 100 MG CAP PO SCH ×2 (08:20→20:17)
[2016-09-09] MEDS: PANTOprazole SOD 40 MG TAB PO SCH (08:20)
[2016-09-09] MEDS: AMIODARONE 200 MG TAB PO SCH (08:20)
[2016-09-09] MEDS: SULFASALAZINE 500 MG TAB PO SCH ×4 (08:20→20:17)
[2016-09-09] MEDS: ASPIRIN 81 MG ECTAB PO SCH (08:20)
[2016-09-09] MEDS: POTASSIUM CHLORIDE 10 MEQ TABCR PO SCH (08:21)
[2016-09-09] MEDS: PRAVASTATIN SOD 20 MG TAB PO SCH (08:22)
[2016-09-09] MEDS: TAMSULOSIN HCL 0.4 MG CAP PO SCH ×2 (08:22→20:17)
[2016-09-09 08:45] LABS: BUN/CREATININE RATIO 14.4 (10-20); CALCIUM 8.1 mg/dl (8.5-10.1); CREATININE 0.7 mg/dl (0.60-1.40); POTASSIUM 3.2 mmol/L (3.5-5.1)
[2016-09-09] MEDS ORDERED: POTASSIUM CHLORIDE 20 MEQ TABCR PO ONE (09:15)
[2016-09-09 11:30] VITALS: BP 123/56; PULSE 94; TEMP 36.9; O2SAT 92
--- NOTE | 2016-09-09 12:32 | Progress Note ---
Medicine Progress Note Date & Time of Visit: Sep 09, 2016 at 12:08. Subjective Pt was seen and examined Lying in bed with no distress Pt said that he is feeling better today His weakness is slightly improved Denies any chest pain, palpitation, dizziness and SOB Objective Last 8 Hrs Date Time Temp Pulse Resp B/P (MAP) Pulse Ox O2 Delivery O2 Flow Rate FiO2 09/09/16 12:04 Room Air 09/09/16 11:30 36.9 94 18 123/56 (78) 92 Room Air 09/09/16 08:10 Room Air 09/09/16 07:31 36.5 76 18 177/89 (118) 92 Room Air 09/09/16 04:14 36.7 76 18 168/64 (98) 94 Room Air Physical Exam: General- No acute distress, pleasant Head- atraumatic Eyes- PERRL, EOMI ENT- oropharynx clear Neck- supple, no JVD Lungs- clear to auscultation Heart- regular rhythm; no murmur Abdomen- normal bowel sounds, soft Extremities- no calf tenderness Neuro- alert, oriented x 3; PERRL, EOMI; no facial palsy Skin- warm & dry Laboratory Results: Last 24 Hours Test 09/08/16 19:50 09/08/16 20:00 09/08/16 20:05 09/08/16 21:58 White Blood Count 5.44 K/uL Red Blood Count 3.90 M/uL Hemoglobin 12.4 g/dL Hematocrit 32.8 % Mean Corpuscular Volume 84.1 fL Mean Corpuscular Hemoglobin 31.8 pg Mean Corpuscular Hemoglobin Concent 37.8 g/dl Platelet Count 132 K/uL Mean Platelet Volume 8.7 fL Neutrophils (%) (Auto) 68.0 % Lymphocytes (%) (Auto) 11.8 % Monocytes (%) (Auto) 16.4 % Eosinophils (%) (Auto) 1.7 % Basophils (%) (Auto) 0.4 % Neutrophils # (Auto) 3.71 K/uL Lymphocytes # (Auto) 0.64 K/uL Monocytes # (Auto) 0.89 K/uL Eosinophils # (Auto) 0.09 K/uL Basophils # (Auto) 0.02 K/uL RDW Standard Deviation 41.3 fL RDW Coefficient of Variation 13.7 % Immature Granulocyte % (Auto) 1.7 % Immature Granulocyte # (Auto) 0.09 K/uL Prothrombin Time 11.3 SECONDS Prothromb Time International Ratio 1.1 Sodium Level 119 mmol/L Potassium Level 3.8 mmol/L Chloride Level 85 mmol/L Carbon Dioxide Level 23 mmol/L Anion Gap 11.0 mmol/L Blood Urea Nitrogen 15 mg/dl Creatinine 0.67 mg/dl Est Creatinine Clear Calc Drug Dose 87.2 ml/min Estimated GFR () 109.7 Estimated GFR (Non- 94.7 BUN/Creatinine Ratio 22.4 Random Glucose 92 mg/dl Calcium Level 8.0 mg/dl Total Bilirubin 1.1 mg/dl Direct Bilirubin 0.3 mg/dl Aspartate Amino Transf (AST/SGOT) 15 U/L Alanine Aminotransferase (ALT/SGPT) 23 U/L Alkaline Phosphatase 93 U/L Total Protein 5.9 gm/dl Albumin 3.8 gm/dl Lipase 106 U/L Bedside Troponin I < 0.030 ng/ml Urine Color DK YELLOW Urine Appearance CLEAR Urine pH 7.5 Urine Specific [place] 1.015 Urine Protein NEG Urine Glucose (UA) NEG Urine Ketones NEG Urine Occult Blood NEG Urine Nitrite NEG Urine Bilirubin NEG Urine Urobilinogen NEG Urine Leukocyte Esterase TRACE Urine WBC (Auto) 1-5 /hpf Urine RBC (Auto) 0-4 /hpf Urine Hyaline Casts (Auto) 0 /lpf Urine Epithelial Cells (Auto) 0-5 /lpf Urine Bacteria (Auto) NEG Osmolality 240 mOsm/kg Uric Acid 1.5 mg/dl Vitamin B12 Level 755 pg/mL Thyroid Stimulating Hormone (TSH) 2.110 uIu/ml Test 09/08/16 22:29 09/09/16 01:10 09/09/16 03:36 09/09/16 08:00 Urine Osmolality 264 mOms/kg Urine Random Sodium 98 mEq/L Urine Random Uric Acid 6.5 mg/dl White Blood Count 5.51 K/uL Red Blood Count 3.72 M/uL Hemoglobin 11.3 g/dL Hematocrit 31.3 % Mean Corpuscular Volume 84.1 fL Mean Corpuscular Hemoglobin 30.4 pg Mean Corpuscular Hemoglobin Concent 36.1 g/dl RDW Standard Deviation 41.9 fL RDW Coefficient of Variation 13.7 % Platelet Count 127 K/uL Mean Platelet Volume 8.6 fL Sodium Level 123 mmol/L 123 mmol/L Potassium Level 3.3 mmol/L 3.2 mmol/L Chloride Level 88 mmol/L 89 mmol/L Carbon Dioxide Level 27 mmol/L 26 mmol/L Anion Gap 8.0 mmol/L 8.0 mmol/L Blood Urea Nitrogen 11 mg/dl 10 mg/dl Creatinine 0.56 mg/dl 0.70 mg/dl Est Creatinine Clear Calc Drug Dose 103.6 ml/min 82.9 ml/min Estimated GFR () 118.1 107.8 Estimated GFR (Non- 101.9 93.0 BUN/Creatinine Ratio 20.0 14.4 Random Glucose 96 mg/dl 120 mg/dl Calcium Level 7.7 mg/dl 8.1 mg/dl Magnesium Level 1.6 mg/dl Test 09/09/16 12:00 Date/Time Source Procedure Growth Status 09/08/16 20:05 Urine , Clean Catch Urine Culture Pending Received Assessment & Plan Generalized Weakness Possible related to hyponatremia Na [address] head showed no acute abnormality Cxr showed no finding for pneumonia PT/OT sebastian talked to case management manager for placement to rehab fall precaution 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 SIADH and has not been taking salt tabs and does not do follow fluid restriction urine osm and serum osm are low and TSH wnl continue fluid restriction, salt table and Lasix Monitor BMP nephrology consultation Hypertensive Urgency blood pressure >200/100 on admission On many BM meds BP stable today Electrolytes Imbalance K replaced Continue monitor electrolytes CAD s/p CABG x3 no chest pain, monitor in tele continue aspirin, Plavix, b-millie, statin Paroxysmal A. Fib continue amiodarone currently in NSR Renal Artery Stenosis s/p R renal artery stenting at [place] continue aspirin and Plavix Hx. of CVA continue Plavix + Aspirin Diastolic CHF continue Lasix daily - may need dose adjustment due to SIADH Hypothyroidism TSH wnl continue Synthroid DVT ppx subq heparin CODE STATUS FULL CODE Consultants: Nephrology Current Inpatient Medications: Current Inpatient Medications Medications (Trade) Dose Ordered Sig/Mary Route Start Time Stop Time Status Last Admin Dose Admin Sodium Chloride (Sodium Chloride Tab) 1 gm TID PO 09/08/16 23:45 10/08/16 23:44 09/09/16 08:21 1 GM Trazodone HCl (Desyrel Tab) 50 mg HS PRN PO 09/08/16 21:30 10/08/16 21:29 09/09/16 03:34 50 MG Heparin Sodium (Porcine) (Heparin Sq 5000 Unit/0.5ml) 5,000 unit Q8 SQ 09/09/16 06:00 10/09/16 05:59 09/09/16 05:15 5,000 UNIT Acetaminophen (Tylenol Tab) 650 mg Q4H PRN PO 09/08/16 21:45 10/08/16 21:44 Al Hydrox/Mg Hydrox/Simethicone (Maalox Max Susp) 15 ml Q4H PRN PO 09/08/16 21:45 10/08/16 21:44 Magnesium Hydroxide (Milk Of Magnesia Susp) 30 ml Q12H PRN PO 09/08/16 21:45 10/08/16 21:44 Ondansetron HCl (Zofran Inj) 4 mg Q6H PRN IV 09/08/16 21:45 10/08/16 21:44 Aspirin (Ecotrin Tab) 81 mg QAM PO 09/09/16 09:00 10/09/16 08:59 09/09/16 08:20 81 MG Polyethylene (Miralax Powder Packet) 17 gm DAILY PRN PO 09/08/16 21:45 10/08/16 21:44 Amiodarone HCl (Cordarone Tab) 200 mg QAM PO 09/09/16 09:00 10/09/16 08:59 09/09/16 08:20 200 MG Carvedilol (Coreg Tab) 12.5 mg BID PRN PO 09/08/16 21:45 10/08/16 21:44 Clonidine HCl (Catapres Tab) 0.2 mg BID PO 09/09/16 09:00 10/09/16 08:59 09/09/16 08:19 0.2 MG Clopidogrel Bisulfate (plAVix TAB) 75 mg QAM PO 09/09/16 09:00 10/09/16 08:59 09/09/16 08:18 75 MG Docusate Sodium (coLACE CAP) 100 mg BID PO 09/09/16 09:00 10/09/16 08:59 09/09/16 08:20 100 MG Folic Acid (Folvite Tab) 1 mg QPM PO 09/09/16 21:00 10/09/16 20:59 Furosemide (Lasix Tab) 20 mg DAILY PO 09/09/16 09:00 10/09/16 08:59 09/09/16 08:19 20 MG Hydralazine HCl (Apresoline Tab) 25 mg BID PO 09/09/16 09:00 10/09/16 08:59 09/09/16 08:21 25 MG Losartan Potassium (coZAAR TAB) 100 mg QAM PO 09/09/16 09:00 10/09/16 08:59 09/09/16 08:19 100 MG Pantoprazole Sodium (Protonix Tab) 40 mg QAM PO 09/09/16 09:00 10/09/16 08:59 09/09/16 08:20 40 MG Potassium Chloride (Klor-Con M10) 30 meq DAILY PO 09/09/16 09:00 10/09/16 08:59 09/09/16 08:21 30 MEQ Pravastatin Sodium (Pravachol Tab) 20 mg QAM PO 09/09/16 09:00 10/09/16 08:59 09/09/16 08:22 20 MG Sulfasalazine (Azulfidine Tab) 500 mg QID PO 09/09/16 09:00 10/09/16 08:59 09/09/16 08:20 500 MG Tamsulosin HCl (Flomax Cap) 0.4 mg BID PO 09/09/16 09:00 10/09/16 08:59 09/09/16 08:22 0.4 MG Levothyroxine Sodium (Synthroid Tab) 50 mcg DAILYBB PO 09/09/16 06:00 10/09/16 06:59 09/09/16 05:09 50 MCG Hydralazine HCl (HydrALAZINE INJ) 10 mg Q6 PRN IV. 09/09/16 09:30 10/09/16 09:29
[2016-09-09 13:02] LABS: CALCIUM 8.3 mg/dl (8.5-10.1); CREATININE 0.74 mg/dl (0.60-1.40); POTASSIUM 3.9 mmol/L (3.5-5.1)
--- NOTE | 2016-09-09 14:32 | Nephrology Consultation ---
Nephrology Consultation Date of Consultation: Sep 09, 2016. Attending Physician: Dimitri Reason for Consultation: hyponatremia History of Present Illness Patient is a 76 year old male with history of SIADH and was previously on fluid restriction and salt tabs. Patient was weaned off of the salt tabs and was not adhering to a fluid restriction. pt was having some lower abdominal pain and had decreased appetite and was trying to drink more water recently and found to have hyponatremia with a sodium of 119. Pt this morning was starting to feel better and sodium levels had improved to 122. sodium prior to 119 was recently 129. pt with recent fall and has generalized weakness. Past Medical/Surgical History Medical Problems: (1) Abnormal EKG Status: Acute (2) Fall Status: Acute (3) Hyponatremia Status: Acute (4) Right-sided epistaxis Status: Acute (5) Weakness Status: Acute (6) Weakness Status: Acute afib cad diastolic heart failure hyperlipidemia hx of cva with residual right sided weakness htn ulcerative colitis cabgx2 laminectomy partial gastric surgery Family History Hypertension Social History Smoking Status: Never Smoker Alcohol Use: none Drug Use: none Marital Status: Occupation Status: retired Allergies Coded Allergies: Amlodipine (Unverified Adverse Reaction, Intermediate, lower leg edema, 09/08/16) Pseudoephedrine (Verified Adverse Reaction, Mild, INTOLERANCE-URINARY RETENTION, 09/08/16) Medications Current Inpatient Medications Medications (Trade) Dose Ordered Sig/Mary Route Start Time Stop Time Status Last Admin Dose Admin Sodium Chloride (Sodium Chloride Tab) 1 gm TID PO 09/08/16 23:45 10/08/16 23:44 09/09/16 12:44 1 GM Trazodone HCl (Desyrel Tab) 50 mg HS PRN PO 09/08/16 21:30 10/08/16 21:29 09/09/16 03:34 50 MG Heparin Sodium (Porcine) (Heparin Sq 5000 Unit/0.5ml) 5,000 unit Q8 SQ 09/09/16 06:00 10/09/16 05:59 09/09/16 05:15 5,000 UNIT Acetaminophen (Tylenol Tab) 650 mg Q4H PRN PO 09/08/16 21:45 10/08/16 21:44 Al Hydrox/Mg Hydrox/Simethicone (Maalox Max Susp) 15 ml Q4H PRN PO 09/08/16 21:45 8/8/17 21:44 Magnesium Hydroxide (Milk Of Magnesia Susp) 30 ml Q12H PRN PO 09/08/16 21:45 10/08/16 21:44 Ondansetron HCl (Zofran Inj) 4 mg Q6H PRN IV 09/08/16 21:45 10/08/16 21:44 Aspirin (Ecotrin Tab) 81 mg QAM PO 09/09/16 09:00 10/09/16 08:59 09/09/16 08:20 81 MG Polyethylene (Miralax Powder Packet) 17 gm DAILY PRN PO 09/08/16 21:45 10/08/16 21:44 Amiodarone HCl (Cordarone Tab) 200 mg QAM PO 09/09/16 09:00 10/09/16 08:59 09/09/16 08:20 200 MG Carvedilol (Coreg Tab) 12.5 mg BID PRN PO 09/08/16 21:45 10/08/16 21:44 Clonidine HCl (Catapres Tab) 0.2 mg BID PO 09/09/16 09:00 10/09/16 08:59 09/09/16 08:19 0.2 MG Clopidogrel Bisulfate (plAVix TAB) 75 mg QAM PO 09/09/16 09:00 10/09/16 08:59 09/09/16 08:18 75 MG Docusate Sodium (coLACE CAP) 100 mg BID PO 09/09/16 09:00 10/09/16 08:59 09/09/16 08:20 100 MG Folic Acid (Folvite Tab) 1 mg QPM PO 09/09/16 21:00 10/09/16 20:59 Furosemide (Lasix Tab) 20 mg DAILY PO 09/09/16 09:00 10/09/16 08:59 09/09/16 08:19 20 MG Hydralazine HCl (Apresoline Tab) 25 mg BID PO 09/09/16 09:00 10/09/16 08:59 09/09/16 08:21 25 MG Losartan Potassium (coZAAR TAB) 100 mg QAM PO 09/09/16 09:00 10/09/16 08:59 09/09/16 08:19 100 MG Pantoprazole Sodium (Protonix Tab) 40 mg QAM PO 09/09/16 09:00 10/09/16 08:59 09/09/16 08:20 40 MG Potassium Chloride (Klor-Con M10) 30 meq DAILY PO 09/09/16 09:00 10/09/16 08:59 09/09/16 08:21 30 MEQ Pravastatin Sodium (Pravachol Tab) 20 mg QAM PO 09/09/16 09:00 10/09/16 08:59 09/09/16 08:22 20 MG Sulfasalazine (Azulfidine Tab) 500 mg QID PO 09/09/16 09:00 10/09/16 08:59 09/09/16 12:43 500 MG Tamsulosin HCl (Flomax Cap) 0.4 mg BID PO 09/09/16 09:00 10/09/16 08:59 09/09/16 08:22 0.4 MG Levothyroxine Sodium (Synthroid Tab) 50 mcg DAILYBB PO 09/09/16 06:00 10/09/16 06:59 09/09/16 05:09 50 MCG Hydralazine HCl (HydrALAZINE INJ) 10 mg Q6 PRN IV. 09/09/16 09:30 10/09/16 09:29 Home Meds and Scripts Medications Dose Route/Sig Max Daily Dose Days Date Category Dose Instructions Miralax (Polyethylene Glycol 3350) 1 Pow Pow 17 Gm PO PRN 09/08/16 Reported Kp Melatonin (Melatonin) 3 Mg Tab 1 Tab PO PRN 09/08/16 Reported Claritin (Loratadine) 10 Mg Tab 10 Mg PO PRN 09/08/16 Reported Cyanocobalamin 1,000 Mcg/Ml Inj 1 Ml IM MONTHLY 09/08/16 Reported Flomax (Tamsulosin Hcl) 0.4 Mg Cap 0.4 Mg PO BID 09/08/16 Reported Pravachol (Pravastatin Sodium) 20 Mg Tab 20 Mg PO QAM 09/08/16 Reported Lasix (Furosemide) 20 Mg Tab 20 Mg PO DAILY 09/08/16 Reported Vitamin D3 (Cholecalciferol) 1,000 Unit Tab 1 Tab PO DAILY 09/08/16 Reported Klor-Con (Potassium Chloride) 20 Meq Tabcr 30 Meq PO DAILY 09/08/16 Reported Flonase Allergy Relief (Fluticasone Propionate (Nasal)) 50 Mcg/Act Spr 2 Sprays CASEY QAM 2/20/17 Reported Centrum Silver Adult 50+ (Multiple Vitamins W/ Minerals) 1 Tab Tab 1 Tab PO QAM 02/23/16 Reported Colace (Docusate Sodium) 100 Mg Cap 1 Cap PO BID 02/23/16 Reported Cordarone (Amiodarone Hcl) 200 Mg Tab 200 Mg PO QAM 12/13/15 Reported Protonix (Pantoprazole Sodium) 40 Mg Tab 40 Mg PO QAM 12/13/15 Reported Hydralazine HCl 25 Mg Tab 25 Mg PO BID 12/13/15 Reported Cozaar (Losartan Potassium) 50 Mg Tab 100 Mg PO QAM 12/13/15 Reported Trazodone (Trazodone HCl) 50 Mg Tab 50 Mg PO HS PRN 12/13/15 Reported Clonidine HCl 0.1 Mg Tab 0.2 Mg PO BID 10/06/15 Reported Xanax (Alprazolam) 0.5 Mg Tab 0.5 Mg PO DAILY PRN 10/06/15 Reported Plavix (Clopidogrel Bisulfate) 75 Mg Tab 75 Mg PO QAM 10/06/15 Reported Aspirin 81 (Aspirin) 81 Mg Tab 81 Mg PO QAM 10/06/15 Reported Coreg (Carvedilol) 25 Mg Tab 0.5 Tab PO BID PRN 12/22/13 Reported ONLY IF PULSE >60 Folic Acid 1 Mg Tab 1 Mg PO QPM 12/22/13 Reported Azulfidine (Sulfasalazine) 500 Mg Tab 500 Mg PO QID 08/05/08 Reported Review of Systems Constitutional: + fatigue, No fever, No chills Eyes: No worsening of vision ENT: No hearing loss Respiratory: No shortness of breath Cardiac: No chest pain Abdomen: No nausea, No vomiting Male : No dysuria all other review of systems otherwise negative. Physical Exam Date Time Temp Pulse Resp B/P (MAP) Pulse Ox O2 Delivery O2 Flow Rate FiO2 09/09/16 12:04 Room Air 09/09/16 11:30 36.9 94 18 123/56 (78) 92 Room Air 09/09/16 08:10 Room Air 09/09/16 07:31 36.5 76 18 177/89 (118) 92 Room Air 09/09/16 04:14 36.7 76 18 168/64 (98) 94 Room Air 09/09/16 04:08 Room Air 09/09/16 00:00 Room Air 09/08/16 22:15 37.7 85 14 167/93 Room Air 09/08/16 22:15 82 18 196/113 96 09/08/16 20:43 75 18 199/116 96 Room Air 09/08/16 19:39 77 09/08/16 19:05 36.5 44 20 222/94 89 Room Air General Appearance: no apparent distress Eyes: normal inspection ENT: normal ENT inspection Neck: supple Respiratory/Chest: lungs clear Cardiovascular: regular rate, rhythm, no edema Abdomen: + tenderness Extremities: no pedal edema Neurologic/Psych: no motor/sensory deficits Skin: normal color Diagnostics Last 24 Hours Test 09/08/16 19:50 09/08/16 20:00 09/08/16 20:05 09/08/16 21:58 White Blood Count 5.44 K/uL Red Blood Count 3.90 M/uL Hemoglobin 12.4 g/dL Hematocrit 32.8 % Mean Corpuscular Volume 84.1 fL Mean Corpuscular Hemoglobin 31.8 pg Mean Corpuscular Hemoglobin Concent 37.8 g/dl Platelet Count 132 K/uL Mean Platelet Volume 8.7 fL Neutrophils (%) (Auto) 68.0 % Lymphocytes (%) (Auto) 11.8 % Monocytes (%) (Auto) 16.4 % Eosinophils (%) (Auto) 1.7 % Basophils (%) (Auto) 0.4 % Neutrophils # (Auto) 3.71 K/uL Lymphocytes # (Auto) 0.64 K/uL Monocytes # (Auto) 0.89 K/uL Eosinophils # (Auto) 0.09 K/uL Basophils # (Auto) 0.02 K/uL RDW Standard Deviation 41.3 fL RDW Coefficient of Variation 13.7 % Immature Granulocyte % (Auto) 1.7 % Immature Granulocyte # (Auto) 0.09 K/uL Prothrombin Time 11.3 SECONDS Prothromb Time International Ratio 1.1 Sodium Level 119 mmol/L Potassium Level 3.8 mmol/L Chloride Level 85 mmol/L Carbon Dioxide Level 23 mmol/L Anion Gap 11.0 mmol/L Blood Urea Nitrogen 15 mg/dl Creatinine 0.67 mg/dl Est Creatinine Clear Calc Drug Dose 87.2 ml/min Estimated GFR () 109.7 Estimated GFR (Non- 94.7 BUN/Creatinine Ratio 22.4 Random Glucose 92 mg/dl Calcium Level 8.0 mg/dl Total Bilirubin 1.1 mg/dl Direct Bilirubin 0.3 mg/dl Aspartate Amino Transf (AST/SGOT) 15 U/L Alanine Aminotransferase (ALT/SGPT) 23 U/L Alkaline Phosphatase 93 U/L Total Protein 5.9 gm/dl Albumin 3.8 gm/dl Lipase 106 U/L Bedside Troponin I < 0.030 ng/ml Urine Color DK YELLOW Urine Appearance CLEAR Urine pH 7.5 Urine Specific Erwin 1.015 Urine Protein NEG Urine Glucose (UA) NEG Urine Ketones NEG Urine Occult Blood NEG Urine Nitrite NEG Urine Bilirubin NEG Urine Urobilinogen NEG Urine Leukocyte Esterase TRACE Urine WBC (Auto) 1-5 /hpf Urine RBC (Auto) 0-4 /hpf Urine Hyaline Casts (Auto) 0 /lpf Urine Epithelial Cells (Auto) 0-5 /lpf Urine Bacteria (Auto) NEG Osmolality 240 mOsm/kg Uric Acid 1.5 mg/dl Vitamin B12 Level 755 pg/mL Thyroid Stimulating Hormone (TSH) 2.110 uIu/ml Test 09/08/16 22:29 09/09/16 01:10 09/09/16 03:36 09/09/16 08:00 Urine Osmolality 264 mOms/kg Urine Random Sodium 98 mEq/L Urine Random Uric Acid 6.5 mg/dl White Blood Count 5.51 K/uL Red Blood Count 3.72 M/uL Hemoglobin 11.3 g/dL Hematocrit 31.3 % Mean Corpuscular Volume 84.1 fL Mean Corpuscular Hemoglobin 30.4 pg Mean Corpuscular Hemoglobin Concent 36.1 g/dl RDW Standard Deviation 41.9 fL RDW Coefficient of Variation 13.7 % Platelet Count 127 K/uL Mean Platelet Volume 8.6 fL Sodium Level 123 mmol/L 123 mmol/L Potassium Level 3.3 mmol/L 3.2 mmol/L Chloride Level 88 mmol/L 89 mmol/L Carbon Dioxide Level 27 mmol/L 26 mmol/L Anion Gap 8.0 mmol/L 8.0 mmol/L Blood Urea Nitrogen 11 mg/dl 10 mg/dl Creatinine 0.56 mg/dl 0.70 mg/dl Est Creatinine Clear Calc Drug Dose 103.6 ml/min 82.9 ml/min Estimated GFR () 118.1 107.8 Estimated GFR (Non- 101.9 93.0 BUN/Creatinine Ratio 20.0 14.4 Random Glucose 96 mg/dl 120 mg/dl Calcium Level 7.7 mg/dl 8.1 mg/dl Magnesium Level 1.6 mg/dl Test 09/09/16 12:22 Sodium Level 124 mmol/L Potassium Level 3.9 mmol/L Chloride Level 92 mmol/L Carbon Dioxide Level 22 mmol/L Anion Gap 10.0 mmol/L Blood Urea Nitrogen 11 mg/dl Creatinine 0.74 mg/dl Est Creatinine Clear Calc Drug Dose 78.4 ml/min Estimated GFR () 105.3 Estimated GFR (Non- 90.9 BUN/Creatinine Ratio 15.0 Random Glucose 130 mg/dl Calcium Level 8.3 mg/dl Assessment & Plan hyponatremia-hx of siadh and no longer on salt tabs or fluid restriction. restarted salt tabs one gram tid and placed on 1500 cc fluid restriction and on lasix 20mg a day. urine osm 264. serum osm of 240. sodium levels slowly and appropriately improving and pt symptomatically improving. with urine osm under 300, if necessary could give normal saline. for now, continue current treatment since symptomatically improving and sodium levels slowly improving. HTN: bp was elevated on admission but currently under much better control. goal bp is under 140/90. currently on lasix 20mg a day, clonidine 0.2 bid, hydralazine 25mg bid. losartan 100mg a day. no changes. hypokalemia-k was 3.2 and improved to 3.9 and repleting prn.
[2016-09-09 16:07] VITALS: BP 146/76; PULSE 83; TEMP 36.9; O2SAT 93
[2016-09-09 19:27] VITALS: BP 143/73; PULSE 81; TEMP 36.8; O2SAT 94
[2016-09-09 20:15] VITALS: O2SAT 94
[2016-09-09] MEDS: GUAIFENESIN 200 MG TAB PO PRN (20:17)
[2016-09-10] VITALS (9 sets, daily range): BP systolic 131–169; BP diastolic 60–97; PULSE 60–90; TEMP 36.6–37; O2SAT 94–96
[2016-09-10] MEDS: LEVOTHYROXINE 50 MCG TAB PO SCH (05:19)
[2016-09-10] MEDS: GUAIFENESIN 200 MG TAB PO PRN ×3 (05:20→21:40)
[2016-09-10] MEDS: HEPARIN SOD 5000 UNIT/0.5 ML CARP SQ SCH ×3 (05:24→21:41)
[2016-09-10 06:21] LABS: BUN/CREATININE RATIO 18.8 (10-20); CALCIUM 8.1 mg/dl (8.5-10.1); CREATININE 0.78 mg/dl (0.60-1.40); POTASSIUM 3.9 mmol/L (3.5-5.1)
[2016-09-10] MEDS: CLONIDINE HCL 0.1 MG TAB PO SCH ×2 (08:38→21:39)
[2016-09-10] MEDS: AMIODARONE 200 MG TAB PO SCH (08:38)
[2016-09-10] MEDS: TAMSULOSIN HCL 0.4 MG CAP PO SCH ×2 (08:38→21:39)
[2016-09-10] MEDS: DOCUSATE SODIUM 100 MG CAP PO SCH ×2 (08:38→21:39)
[2016-09-10] MEDS: LOSARTAN POTASSIUM 50 MG TAB PO SCH (08:38)
[2016-09-10] MEDS: PANTOprazole SOD 40 MG TAB PO SCH (08:39)
[2016-09-10] MEDS: CLOPIDOGREL BISULFATE 75 MG TAB PO SCH (08:39)
[2016-09-10] MEDS: PRAVASTATIN SOD 20 MG TAB PO SCH (08:39)
[2016-09-10] MEDS: SULFASALAZINE 500 MG TAB PO SCH ×4 (08:39→21:38)
[2016-09-10] MEDS: POTASSIUM CHLORIDE 10 MEQ TABCR PO SCH (08:39)
[2016-09-10] MEDS: ASPIRIN 81 MG ECTAB PO SCH (08:39)
[2016-09-10] MEDS: SODIUM CHLORIDE 1 GM TAB PO SCH ×3 (08:40→21:39)
--- NOTE | 2016-09-10 09:01 | Nephrology Progress Note ---
Nephrology Progress Note Date of Service: Sep 10, 2016. Subjective 76 yo male with underlying siadh and hyponatremia who has hypertension and presented with weakness and abdominal pain. abdominal pain improved. sodium levels are slowly improving. pt concerned about his high blood pressures. pt with a cough with phlegm build up. Objective Date Time Temp Pulse Resp B/P (MAP) Pulse Ox O2 Delivery O2 Flow Rate FiO2 09/10/16 08:11 37.0 90 16 169/81 (110) 95 09/10/16 04:15 94 Room Air 09/10/16 04:00 36.6 79 18 163/77 (105) 94 Room Air 09/10/16 00:05 94 Room Air 09/10/16 00:00 36.8 80 18 168/97 (120) 94 Room Air 09/09/16 20:15 94 Room Air 09/09/16 19:27 36.8 81 16 143/73 (96) 94 Room Air 09/09/16 16:07 36.9 83 16 146/76 (99) 93 Room Air 09/09/16 16:00 Room Air 09/09/16 12:04 Room Air 09/09/16 11:30 36.9 94 18 123/56 (78) 92 Room Air Physical Exam: General-aaox3 Eyes-no scleral icterus ENT-mmm Neck-supple Lungs-+rhonchi Heart-rrr Abdomen-bs+ s/nt/nd Extremities-no c/c/e Neuro-nonfocal Current Inpatient Medications Medications (Trade) Dose Ordered Sig/Mary Route Start Time Stop Time Status Last Admin Dose Admin Sodium Chloride (Sodium Chloride Tab) 1 gm TID PO 09/08/16 23:45 10/08/16 23:44 09/10/16 08:40 1 GM Trazodone HCl (Desyrel Tab) 50 mg HS PRN PO 09/08/16 21:30 10/08/16 21:29 09/09/16 03:34 50 MG Heparin Sodium (Porcine) (Heparin Sq 5000 Unit/0.5ml) 5,000 unit Q8 SQ 09/09/16 06:00 10/09/16 05:59 09/10/16 05:24 5,000 UNIT Acetaminophen (Tylenol Tab) 650 mg Q4H PRN PO 09/08/16 21:45 10/08/16 21:44 Al Hydrox/Mg Hydrox/Simethicone (Maalox Max Susp) 15 ml Q4H PRN PO 09/08/16 21:45 10/08/16 21:44 Magnesium Hydroxide (Milk Of Magnesia Susp) 30 ml Q12H PRN PO 09/08/16 21:45 10/08/16 21:44 Ondansetron HCl (Zofran Inj) 4 mg Q6H PRN IV 09/08/16 21:45 10/08/16 21:44 Aspirin (Ecotrin Tab) 81 mg QAM PO 09/09/16 09:00 10/09/16 08:59 09/10/16 08:39 81 MG Polyethylene (Miralax Powder Packet) 17 gm DAILY PRN PO 09/08/16 21:45 10/08/16 21:44 Amiodarone HCl (Cordarone Tab) 200 mg QAM PO 09/09/16 09:00 10/09/16 08:59 09/10/16 08:38 200 MG Carvedilol (Coreg Tab) 12.5 mg BID PRN PO 09/08/16 21:45 10/08/16 21:44 09/10/16 08:37 12.5 MG Clonidine HCl (Catapres Tab) 0.2 mg BID PO 09/09/16 09:00 10/09/16 08:59 09/10/16 08:38 0.2 MG Clopidogrel Bisulfate (plAVix TAB) 75 mg QAM PO 09/09/16 09:00 10/09/16 08:59 09/10/16 08:39 75 MG Docusate Sodium (coLACE CAP) 100 mg BID PO 09/09/16 09:00 10/09/16 08:59 09/10/16 08:38 100 MG Folic Acid (Folvite Tab) 1 mg QPM PO 09/09/16 21:00 10/09/16 20:59 09/09/16 20:18 1 MG Furosemide (Lasix Tab) 20 mg DAILY PO 09/09/16 09:00 10/09/16 08:59 09/09/16 08:19 20 MG Hydralazine HCl (Apresoline Tab) 25 mg BID PO 09/09/16 09:00 10/09/16 08:59 09/10/16 08:39 25 MG Losartan Potassium (coZAAR TAB) 100 mg QAM PO 09/09/16 09:00 10/09/16 08:59 09/10/16 08:38 100 MG Pantoprazole Sodium (Protonix Tab) 40 mg QAM PO 09/09/16 09:00 10/09/16 08:59 09/10/16 08:39 40 MG Potassium Chloride (Klor-Con M10) 30 meq DAILY PO 09/09/16 09:00 10/09/16 08:59 09/10/16 08:39 30 MEQ Pravastatin Sodium (Pravachol Tab) 20 mg QAM PO 09/09/16 09:00 10/09/16 08:59 09/10/16 08:39 20 MG Sulfasalazine (Azulfidine Tab) 500 mg QID PO 09/09/16 09:00 10/09/16 08:59 09/10/16 08:39 500 MG Tamsulosin HCl (Flomax Cap) 0.4 mg BID PO 09/09/16 09:00 10/09/16 08:59 09/10/16 08:38 0.4 MG Levothyroxine Sodium (Synthroid Tab) 50 mcg DAILYBB PO 09/09/16 06:00 10/09/16 06:59 09/10/16 05:19 50 MCG Hydralazine HCl (HydrALAZINE INJ) 10 mg Q6 PRN IV. 09/09/16 09:30 10/09/16 09:29 Guaifenesin (Organidin Nr Tab) 200 mg Q8 PRN PO 09/09/16 17:15 10/09/16 17:14 09/10/16 08:37 200 MG Last 24 Hours Test 09/09/16 12:22 09/10/16 05:15 Sodium Level 124 mmol/L 126 mmol/L Potassium Level 3.9 mmol/L 3.9 mmol/L Chloride Level 92 mmol/L 93 mmol/L Carbon Dioxide Level 22 mmol/L 25 mmol/L Anion Gap 10.0 mmol/L 8.0 mmol/L Blood Urea Nitrogen 11 mg/dl 15 mg/dl Creatinine 0.74 mg/dl 0.78 mg/dl Est Creatinine Clear Calc Drug Dose 78.4 ml/min 74.4 ml/min Estimated GFR () 105.3 103.1 Estimated GFR (Non- 90.9 88.9 BUN/Creatinine Ratio 15.0 18.8 Random Glucose 130 mg/dl 84 mg/dl Calcium Level 8.3 mg/dl 8.1 mg/dl Magnesium Level 2.0 mg/dl Assessment & Plan hyponatremia-hx of siadh and restarted on salt tabs, lasix and fluid restriction. sodium levels are appropriately and slowly improving. no changes to regimen. hypokalemia-k better and on k supplement daily.
[2016-09-10] MEDS: FUROSEMIDE 20 MG TAB PO SCH (09:07)
--- NOTE | 2016-09-10 11:17 | Progress Note ---
Medicine Progress Note Date & Time of Visit: Sep 10, 2016 at 11:09. Subjective Pt was seen and examined Sitting in chair comfortable with no distress Pt said that he is already feeling much better He said that his strength is getting better Denies any chest pain, palpitation, dizziness and SOB Objective Last 8 Hrs Date Time Temp Pulse Resp B/P (MAP) Pulse Ox O2 Delivery O2 Flow Rate FiO2 09/10/16 08:11 37.0 90 16 169/81 (110) 95 09/10/16 08:10 Room Air 09/10/16 04:15 94 Room Air 09/10/16 04:00 36.6 79 18 163/77 (105) 94 Room Air Physical Exam: General- No acute distress, pleasant Head- atraumatic Eyes- PERRL, EOMI ENT- oropharynx clear Neck- supple, no JVD Lungs- clear to auscultation Heart- regular rhythm; no murmur Abdomen- normal bowel sounds, soft Extremities- no calf tenderness Neuro- alert, oriented x 3; PERRL, EOMI; no facial palsy Skin- warm & dry Laboratory Results: Last 24 Hours Test 09/09/16 12:22 09/10/16 05:15 Sodium Level 124 mmol/L 126 mmol/L Potassium Level 3.9 mmol/L 3.9 mmol/L Chloride Level 92 mmol/L 93 mmol/L Carbon Dioxide Level 22 mmol/L 25 mmol/L Anion Gap 10.0 mmol/L 8.0 mmol/L Blood Urea Nitrogen 11 mg/dl 15 mg/dl Creatinine 0.74 mg/dl 0.78 mg/dl Est Creatinine Clear Calc Drug Dose 78.4 ml/min 74.4 ml/min Estimated GFR () 105.3 103.1 Estimated GFR (Non- 90.9 88.9 BUN/Creatinine Ratio 15.0 18.8 Random Glucose 130 mg/dl 84 mg/dl Calcium Level 8.3 mg/dl 8.1 mg/dl Magnesium Level 2.0 mg/dl Assessment & Plan Generalized Weakness Possible related to hyponatremia Na [address] head showed no acute abnormality Cxr showed no finding for pneumonia PT/OT sebastian talked to case manager specialist for placement to rehab fall precaution Refused to go for inpatient rehab 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 SIADH and has not been taking salt tabs and does not do follow fluid restriction urine osm and serum osm are low and TSH wnl continue fluid restriction, salt table and Lasix Na today 126 Monitor BMP nephrology consultation Hypertensive Urgency blood pressure >200/100 on admission On many BM meds BP stable today Electrolytes Imbalance K stable Continue monitor electrolytes CAD s/p CABG x3 no chest pain, monitor in tele continue aspirin, Plavix, b-millie, statin Paroxysmal A. Fib continue amiodarone currently in NSR Renal Artery Stenosis s/p R renal artery stenting at [place] continue aspirin and Plavix Hx. of CVA continue Plavix + Aspirin Diastolic CHF continue Lasix daily - may need dose adjustment due to SIADH Hypothyroidism TSH wnl continue Synthroid DVT ppx subq heparin CODE STATUS FULL CODE Consultants: Nephrology Current Inpatient Medications: Current Inpatient Medications Medications (Trade) Dose Ordered Sig/Mary Route Start Time Stop Time Status Last Admin Dose Admin Sodium Chloride (Sodium Chloride Tab) 1 gm TID PO 09/08/16 23:45 10/08/16 23:44 09/10/16 08:40 1 GM Trazodone HCl (Desyrel Tab) 50 mg HS PRN PO 09/08/16 21:30 10/08/16 21:29 09/09/16 03:34 50 MG Heparin Sodium (Porcine) (Heparin Sq 5000 Unit/0.5ml) 5,000 unit Q8 SQ 09/09/16 06:00 10/09/16 05:59 09/10/16 05:24 5,000 UNIT Acetaminophen (Tylenol Tab) 650 mg Q4H PRN PO 09/08/16 21:45 10/08/16 21:44 Al Hydrox/Mg Hydrox/Simethicone (Maalox Max Susp) 15 ml Q4H PRN PO 09/08/16 21:45 10/08/16 21:44 Magnesium Hydroxide (Milk Of Magnesia Susp) 30 ml Q12H PRN PO 09/08/16 21:45 10/08/16 21:44 Ondansetron HCl (Zofran Inj) 4 mg Q6H PRN IV 09/08/16 21:45 10/08/16 21:44 Aspirin (Ecotrin Tab) 81 mg QAM PO 09/09/16 09:00 10/09/16 08:59 09/10/16 08:39 81 MG Polyethylene (Miralax Powder Packet) 17 gm DAILY PRN PO 09/08/16 21:45 10/08/16 21:44 Amiodarone HCl (Cordarone Tab) 200 mg QAM PO 09/09/16 09:00 10/09/16 08:59 09/10/16 08:38 200 MG Carvedilol (Coreg Tab) 12.5 mg BID PRN PO 09/08/16 21:45 10/08/16 21:44 09/10/16 08:37 12.5 MG Clonidine HCl (Catapres Tab) 0.2 mg BID PO 09/09/16 09:00 10/09/16 08:59 09/10/16 08:38 0.2 MG Clopidogrel Bisulfate (plAVix TAB) 75 mg QAM PO 09/09/16 09:00 10/09/16 08:59 09/10/16 08:39 75 MG Docusate Sodium (coLACE CAP) 100 mg BID PO 09/09/16 09:00 10/09/16 08:59 09/10/16 08:38 100 MG Folic Acid (Folvite Tab) 1 mg QPM PO 09/09/16 21:00 10/09/16 20:59 09/09/16 20:18 1 MG Furosemide (Lasix Tab) 20 mg DAILY PO 09/09/16 09:00 10/09/16 08:59 09/10/16 09:07 20 MG Hydralazine HCl (Apresoline Tab) 25 mg BID PO 09/09/16 09:00 10/09/16 08:59 09/10/16 08:39 25 MG Losartan Potassium (coZAAR TAB) 100 mg QAM PO 09/09/16 09:00 10/09/16 08:59 09/10/16 08:38 100 MG Pantoprazole Sodium (Protonix Tab) 40 mg QAM PO 09/09/16 09:00 10/09/16 08:59 09/10/16 08:39 40 MG Potassium Chloride (Klor-Con M10) 30 meq DAILY PO 09/09/16 09:00 10/09/16 08:59 09/10/16 08:39 30 MEQ Pravastatin Sodium (Pravachol Tab) 20 mg QAM PO 09/09/16 09:00 10/09/16 08:59 09/10/16 08:39 20 MG Sulfasalazine (Azulfidine Tab) 500 mg QID PO 09/09/16 09:00 10/09/16 08:59 09/10/16 08:39 500 MG Tamsulosin HCl (Flomax Cap) 0.4 mg BID PO 09/09/16 09:00 10/09/16 08:59 09/10/16 08:38 0.4 MG Levothyroxine Sodium (Synthroid Tab) 50 mcg DAILYBB PO 09/09/16 06:00 10/09/16 06:59 09/10/16 05:19 50 MCG Hydralazine HCl (HydrALAZINE INJ) 10 mg Q6 PRN IV. 09/09/16 09:30 10/09/16 09:29 Guaifenesin (Organidin Nr Tab) 200 mg Q8 PRN PO 09/09/16 17:15 10/09/16 17:14 09/10/16 08:37 200 MG
[2016-09-10] MEDS: TRAZODONE HCL 50 MG TAB PO PRN (21:40)
[2016-09-11] VITALS (14 sets, daily range): BP systolic 131–214; BP diastolic 68–90; PULSE 68–89; TEMP 36.2–36.6; O2SAT 93–97
[2016-09-11] MEDS: HydrALAZINE HCL 20 MG/ML VIAL IV. PRN ×2 (00:24→07:53)
[2016-09-11] MEDS: LEVOTHYROXINE 50 MCG TAB PO SCH (05:29)
[2016-09-11] MEDS: HEPARIN SOD 5000 UNIT/0.5 ML CARP SQ SCH ×2 (05:30→12:21)
[2016-09-11 06:05] LABS: HEMATOCRIT 30.5 % (42-52); MEAN CELL VOLUME 85.2 fL (80-100); MEAN CORPUSCULAR HEMOGLOBIN 30.4 pg (25-34); MEAN CORPUSCULAR HGB CONC 35.7 g/dl (32-36); MEAN PLATELET VOLUME 8.5 fL (7.4-10.4); PLATELET COUNT 136 K/uL (130-400); RED BLOOD COUNT 3.58 M/uL (4.7-6.1); WHITE BLOOD COUNT 4.65 K/uL (4.8-10.8)
[2016-09-11] MEDS: ASPIRIN 81 MG ECTAB PO SCH (07:54)
[2016-09-11] MEDS: AMIODARONE 200 MG TAB PO SCH (07:54)
[2016-09-11] MEDS: SULFASALAZINE 500 MG TAB PO SCH ×3 (07:54→17:17)
[2016-09-11] MEDS: DOCUSATE SODIUM 100 MG CAP PO SCH (07:55)
[2016-09-11] MEDS: CLOPIDOGREL BISULFATE 75 MG TAB PO SCH (07:56)
[2016-09-11] MEDS: SODIUM CHLORIDE 1 GM TAB PO SCH ×2 (07:56→12:19)
[2016-09-11] MEDS: PRAVASTATIN SOD 20 MG TAB PO SCH (07:56)
[2016-09-11] MEDS: FUROSEMIDE 20 MG TAB PO SCH (07:56)
[2016-09-11] MEDS: PANTOprazole SOD 40 MG TAB PO SCH (07:56)
[2016-09-11] MEDS: CLONIDINE HCL 0.1 MG TAB PO SCH (07:57)
[2016-09-11] MEDS: TAMSULOSIN HCL 0.4 MG CAP PO SCH (07:58)
[2016-09-11] MEDS: POTASSIUM CHLORIDE 10 MEQ TABCR PO SCH (07:58)
[2016-09-11] MEDS: LOSARTAN POTASSIUM 50 MG TAB PO SCH (07:59)
[2016-09-11 08:40] LABS: BUN/CREATININE RATIO 17.7 (10-20); CALCIUM 8.4 mg/dl (8.5-10.1); CREATININE 0.74 mg/dl (0.60-1.40); POTASSIUM 3.8 mmol/L (3.5-5.1)
--- NOTE | 2016-09-11 09:30 | Nephrology Progress Note ---
Nephrology Progress Note Date of Service: Sep 11, 2016. Subjective 76 yo male with underlying siadh and hyponatremia who has hypertension and presented with weakness and abdominal pain. pt feels much better. no complaints. interested in going home. Objective Date Time Temp Pulse Resp B/P (MAP) Pulse Ox O2 Delivery O2 Flow Rate FiO2 09/11/16 08:00 95 Room Air 09/11/16 07:46 36.5 88 16 214/90 (131) 95 09/11/16 04:15 95 Room Air 09/11/16 03:15 36.4 84 16 178/82 (114) 95 Room Air 09/11/16 00:50 72 16 153/85 (107) 09/11/16 00:25 96 Room Air 09/11/16 00:00 36.2 68 18 133/68 (89) 93 Room Air 09/10/16 20:00 96 Room Air 09/10/16 19:44 36.6 69 16 165/97 (119) 96 Room Air 09/10/16 16:00 Room Air 09/10/16 15:47 36.7 60 16 131/65 (87) 96 Room Air 09/10/16 12:05 Room Air 09/10/16 11:33 36.9 71 18 154/60 (91) 96 Physical Exam: General-aaox3 Eyes-no scleral icterus ENT-mmm Neck-supple Lungs-cta Heart-regular Abdomen-bs+ s/nt/nd Extremities-no c/c/e Neuro-nonfocal Current Inpatient Medications Medications (Trade) Dose Ordered Sig/Mary Route Start Time Stop Time Status Last Admin Dose Admin Sodium Chloride (Sodium Chloride Tab) 1 gm TID PO 09/08/16 23:45 10/08/16 23:44 09/11/16 07:56 1 GM Trazodone HCl (Desyrel Tab) 50 mg HS PRN PO 09/08/16 21:30 10/08/16 21:29 09/10/16 21:40 50 MG Heparin Sodium (Porcine) (Heparin Sq 5000 Unit/0.5ml) 5,000 unit Q8 SQ 09/09/16 06:00 10/09/16 05:59 09/11/16 05:30 5,000 UNIT Acetaminophen (Tylenol Tab) 650 mg Q4H PRN PO 09/08/16 21:45 10/08/16 21:44 09/11/16 00:28 650 MG Al Hydrox/Mg Hydrox/Simethicone (Maalox Max Susp) 15 ml Q4H PRN PO 09/08/16 21:45 10/08/16 21:44 Magnesium Hydroxide (Milk Of Magnesia Susp) 30 ml Q12H PRN PO 09/08/16 21:45 10/08/16 21:44 Ondansetron HCl (Zofran Inj) 4 mg Q6H PRN IV 09/08/16 21:45 10/08/16 21:44 Aspirin (Ecotrin Tab) 81 mg QAM PO 09/09/16 09:00 10/09/16 08:59 09/11/16 07:54 81 MG Polyethylene (Miralax Powder Packet) 17 gm DAILY PRN PO 09/08/16 21:45 10/08/16 21:44 Amiodarone HCl (Cordarone Tab) 200 mg QAM PO 09/09/16 09:00 10/09/16 08:59 09/11/16 07:54 200 MG Carvedilol (Coreg Tab) 12.5 mg BID PRN PO 09/08/16 21:45 10/08/16 21:44 09/10/16 08:37 12.5 MG Clonidine HCl (Catapres Tab) 0.2 mg BID PO 09/09/16 09:00 10/09/16 08:59 09/11/16 07:57 0.2 MG Clopidogrel Bisulfate (plAVix TAB) 75 mg QAM PO 09/09/16 09:00 10/09/16 08:59 09/11/16 07:56 75 MG Docusate Sodium (coLACE CAP) 100 mg BID PO 09/09/16 09:00 10/09/16 08:59 09/11/16 07:55 100 MG Folic Acid (Folvite Tab) 1 mg QPM PO 09/09/16 21:00 10/09/16 20:59 09/10/16 21:39 1 MG Furosemide (Lasix Tab) 20 mg DAILY PO 09/09/16 09:00 10/09/16 08:59 09/11/16 07:56 20 MG Hydralazine HCl (Apresoline Tab) 25 mg BID PO 09/09/16 09:00 10/09/16 08:59 09/11/16 07:56 25 MG Losartan Potassium (coZAAR TAB) 100 mg QAM PO 09/09/16 09:00 10/09/16 08:59 09/11/16 07:59 100 MG Pantoprazole Sodium (Protonix Tab) 40 mg QAM PO 09/09/16 09:00 10/09/16 08:59 09/11/16 07:56 40 MG Potassium Chloride (Klor-Con M10) 30 meq DAILY PO 09/09/16 09:00 10/09/16 08:59 09/11/16 07:58 30 MEQ Pravastatin Sodium (Pravachol Tab) 20 mg QAM PO 09/09/16 09:00 10/09/16 08:59 09/11/16 07:56 20 MG Sulfasalazine (Azulfidine Tab) 500 mg QID PO 09/09/16 09:00 10/09/16 08:59 09/11/16 07:54 500 MG Tamsulosin HCl (Flomax Cap) 0.4 mg BID PO 09/09/16 09:00 10/09/16 08:59 09/11/16 07:58 0.4 MG Levothyroxine Sodium (Synthroid Tab) 50 mcg DAILYBB PO 09/09/16 06:00 10/09/16 06:59 09/11/16 05:29 50 MCG Hydralazine HCl (HydrALAZINE INJ) 10 mg Q6 PRN IV. 09/09/16 09:30 10/09/16 09:29 09/11/16 07:53 10 MG Guaifenesin (Organidin Nr Tab) 200 mg Q8 PRN PO 09/09/16 17:15 10/09/16 17:14 09/10/16 21:40 200 MG Last 24 Hours Test 09/11/16 05:23 09/11/16 05:25 White Blood Count 4.65 K/uL Red Blood Count 3.58 M/uL Hemoglobin 10.9 g/dL Hematocrit 30.5 % Mean Corpuscular Volume 85.2 fL Mean Corpuscular Hemoglobin 30.4 pg Mean Corpuscular Hemoglobin Concent 35.7 g/dl RDW Standard Deviation 42.3 fL RDW Coefficient of Variation 13.7 % Platelet Count 136 K/uL Mean Platelet Volume 8.5 fL Sodium Level 126 mmol/L Potassium Level 3.8 mmol/L Chloride Level 93 mmol/L Carbon Dioxide Level 25 mmol/L Anion Gap 8.0 mmol/L Blood Urea Nitrogen 13 mg/dl Creatinine 0.74 mg/dl Est Creatinine Clear Calc Drug Dose 79.0 ml/min Estimated GFR () 105.3 Estimated GFR (Non- 90.9 BUN/Creatinine Ratio 17.7 Random Glucose 92 mg/dl Calcium Level 8.4 mg/dl Assessment & Plan hyponatremia-hx of siadh and restarted on salt tabs, lasix and fluid restriction. sodium levels are 126, goal is above 130. ok from renal perspective to go home today with repeat labs on friday. continue fluid restriction and salt tablets and lasix at current dose. will adjust dose of salt tabs after labs are done on friday. .
--- NOTE | 2016-09-11 11:43 | Progress Note ---
Medicine Progress Note Date & Time of Visit: Sep 11, 2016 at 11:20. Subjective Pt was seen and examined Sitting in chair comfortable with no distress Pt said that he feels fine he is very eager to go home He said that he feels he is strength is back to normal denies any chest pain, palpitation, dizziness and SOB Objective Last 8 Hrs Date Time Temp Pulse Resp B/P (MAP) Pulse Ox O2 Delivery O2 Flow Rate FiO2 09/11/16 08:00 95 Room Air 09/11/16 07:46 36.5 88 16 214/90 (131) 95 09/11/16 04:15 95 Room Air Physical Exam: General- No acute distress, pleasant Head- atraumatic Eyes- PERRL, EOMI ENT- oropharynx clear Neck- supple, no JVD Lungs- clear to auscultation Heart- regular rhythm; no murmur Abdomen- normal bowel sounds, soft Extremities- no calf tenderness Neuro- alert, oriented x 3; PERRL, EOMI; no facial palsy Skin- warm & dry Laboratory Results: Last 24 Hours Test 09/11/16 05:23 09/11/16 05:25 White Blood Count 4.65 K/uL Red Blood Count 3.58 M/uL Hemoglobin 10.9 g/dL Hematocrit 30.5 % Mean Corpuscular Volume 85.2 fL Mean Corpuscular Hemoglobin 30.4 pg Mean Corpuscular Hemoglobin Concent 35.7 g/dl RDW Standard Deviation 42.3 fL RDW Coefficient of Variation 13.7 % Platelet Count 136 K/uL Mean Platelet Volume 8.5 fL Sodium Level 126 mmol/L Potassium Level 3.8 mmol/L Chloride Level 93 mmol/L Carbon Dioxide Level 25 mmol/L Anion Gap 8.0 mmol/L Blood Urea Nitrogen 13 mg/dl Creatinine 0.74 mg/dl Est Creatinine Clear Calc Drug Dose 79.0 ml/min Estimated GFR () 105.3 Estimated GFR (Non- 90.9 BUN/Creatinine Ratio 17.7 Random Glucose 92 mg/dl Calcium Level 8.4 mg/dl Assessment & Plan Generalized Weakness Possible related to hyponatremia Na [address] head showed no acute abnormality Cxr showed no finding for pneumonia PT/OT bostonal talked to case hardener for placement to rehab fall precaution Refused to go for inpatient rehab stable 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 SIADH and has not been taking salt tabs and does not do follow fluid restriction urine osm and serum osm are low and TSH wnl continue fluid restriction, salt table and Lasix Na today 126 Monitor BMP nephrology consultation Case discussed with Dr. Merritt that is ok for pt to go home today Continue 1 salt tab TID, 1500ml fluid restriction and check BMP on Friday Dr. Merritt will manage the Na as an outpatient Hypertensive Urgency blood pressure >200/100 on admission BP was very high this morning recheck BP was 160/61 On many BM meds Will consider to increase the Hydralazine to 50mg BID Electrolytes Imbalance K stable Continue monitor electrolytes CAD s/p CABG x3 no chest pain, monitor in tele continue aspirin, Plavix, b-millie, statin Paroxysmal A. Fib continue amiodarone currently in NSR Renal Artery Stenosis s/p R renal artery stenting at [place] continue aspirin and Plavix Hx. of CVA continue Plavix + Aspirin Diastolic CHF continue Lasix daily - may need dose adjustment due to SIADH Hypothyroidism TSH wnl continue Synthroid DVT ppx subq heparin CODE STATUS FULL CODE Consultants: Nephrology Current Inpatient Medications: Current Inpatient Medications Medications (Trade) Dose Ordered Sig/Mary Route Start Time Stop Time Status Last Admin Dose Admin Sodium Chloride (Sodium Chloride Tab) 1 gm TID PO 09/08/16 23:45 10/08/16 23:44 09/11/16 07:56 1 GM Trazodone HCl (Desyrel Tab) 50 mg HS PRN PO 09/08/16 21:30 10/08/16 21:29 09/10/16 21:40 50 MG Heparin Sodium (Porcine) (Heparin Sq 5000 Unit/0.5ml) 5,000 unit Q8 SQ 09/09/16 06:00 10/09/16 05:59 09/11/16 05:30 5,000 UNIT Acetaminophen (Tylenol Tab) 650 mg Q4H PRN PO 09/08/16 21:45 10/08/16 21:44 09/11/16 00:28 650 MG Al Hydrox/Mg Hydrox/Simethicone (Maalox Max Susp) 15 ml Q4H PRN PO 09/08/16 21:45 10/08/16 21:44 Magnesium Hydroxide (Milk Of Magnesia Susp) 30 ml Q12H PRN PO 09/08/16 21:45 10/08/16 21:44 Ondansetron HCl (Zofran Inj) 4 mg Q6H PRN IV 09/08/16 21:45 10/08/16 21:44 Aspirin (Ecotrin Tab) 81 mg QAM PO 09/09/16 09:00 10/09/16 08:59 09/11/16 07:54 81 MG Polyethylene (Miralax Powder Packet) 17 gm DAILY PRN PO 09/08/16 21:45 10/08/16 21:44 Amiodarone HCl (Cordarone Tab) 200 mg QAM PO 09/09/16 09:00 10/09/16 08:59 09/11/16 07:54 200 MG Carvedilol (Coreg Tab) 12.5 mg BID PRN PO 09/08/16 21:45 10/08/16 21:44 09/10/16 08:37 12.5 MG Clonidine HCl (Catapres Tab) 0.2 mg BID PO 09/09/16 09:00 10/09/16 08:59 09/11/16 07:57 0.2 MG Clopidogrel Bisulfate (plAVix TAB) 75 mg QAM PO 09/09/16 09:00 10/09/16 08:59 09/11/16 07:56 75 MG Docusate Sodium (coLACE CAP) 100 mg BID PO 09/09/16 09:00 10/09/16 08:59 09/11/16 07:55 100 MG Folic Acid (Folvite Tab) 1 mg QPM PO 09/09/16 21:00 10/09/16 20:59 09/10/16 21:39 1 MG Furosemide (Lasix Tab) 20 mg DAILY PO 09/09/16 09:00 10/09/16 08:59 09/11/16 07:56 20 MG Hydralazine HCl (Apresoline Tab) 25 mg BID PO 09/09/16 09:00 10/09/16 08:59 09/11/16 07:56 25 MG Losartan Potassium (coZAAR TAB) 100 mg QAM PO 09/09/16 09:00 10/09/16 08:59 09/11/16 07:59 100 MG Pantoprazole Sodium (Protonix Tab) 40 mg QAM PO 09/09/16 09:00 10/09/16 08:59 09/11/16 07:56 40 MG Potassium Chloride (Klor-Con M10) 30 meq DAILY PO 09/09/16 09:00 10/09/16 08:59 09/11/16 07:58 30 MEQ Pravastatin Sodium (Pravachol Tab) 20 mg QAM PO 09/09/16 09:00 10/09/16 08:59 09/11/16 07:56 20 MG Sulfasalazine (Azulfidine Tab) 500 mg QID PO 09/09/16 09:00 10/09/16 08:59 09/11/16 07:54 500 MG Tamsulosin HCl (Flomax Cap) 0.4 mg BID PO 09/09/16 09:00 10/09/16 08:59 09/11/16 07:58 0.4 MG Levothyroxine Sodium (Synthroid Tab) 50 mcg DAILYBB PO 09/09/16 06:00 10/09/16 06:59 09/11/16 05:29 50 MCG Hydralazine HCl (HydrALAZINE INJ) 10 mg Q6 PRN IV. 09/09/16 09:30 10/09/16 09:29 09/11/16 07:53 10 MG Guaifenesin (Organidin Nr Tab) 200 mg Q8 PRN PO 09/09/16 17:15 10/09/16 17:14 09/10/16 21:40 200 MG
[2016-09-11] MEDS ORDERED: LEVALBUTEROL/IPRATROPIUM NEB INH ONE ×2 (12:15→18:00)
[2016-09-11] MEDS ORDERED: IPRATROPIUM BROMIDE NEB SOLN 0.02% 2.5 ML VIAL INH ONE ×2 (12:30→18:30)
[2016-09-11] MEDS ORDERED: LEVALBUTEROL 0.63MG/3 ML NEB INH ONE ×2 (12:30→18:30)
[2016-09-11] MEDS ORDERED: LEVO50TA6 PO (17:57)
[2016-09-11] MEDS ORDERED: SDMC1 PO (18:06)
[2016-09-11] MEDS ORDERED: APR50 PO (18:06)
[2016-09-11] MEDS ORDERED: GUAI1TAB68 PO (18:06)
--- NOTE | 2016-09-11 18:18 | Discharge Instructions ---
Discharge Instructions Date of Service Sep 11, 2016. Admission Reason for Admission: Hyponatremia Discharge Discharge Diagnosis / Problem: Generalized Weakness, Hyponatremia, Hypertensive Urgency, Electrolytes Imba Discharge Goals Goal(s): Decrease discomfort, Improve function, Improve disease control Activity Recommendations Activity Limitations: resume your previous activity (as tolerated) . Instructions / Follow-Up Instructions / Follow-Up Follow up with nephrology Dr. Merrtit on 09/17 @ 11:50 AM Follow up appointment with your primary care provider Dr. Agee on 09/17 @ 12: 45 PM Follow up with Cardiology with Lucia TOLEDO on 09/17 @ 2:15 pm Check BMP On Friday (Lab order given) Continue salt tab three times a day ( Goal for sodium level 130) Follow a 1500ml fluid restriction Continue Physical Therapy Fall Precaution All your doctors appointment are cancelled for tomorrow Current Hospital Diet Patient's current hospital diet: AHA Diet (Heart Healthy) Discharge Diet Recommended Diet: AHA Diet (Heart Healthy) Pending Studies Studies pending at discharge: no Medical Emergencies . Who to Call and When: Medical Emergencies: If at any time you feel your situation is an emergency, please call 911 immediately. . Non-Emergent Contact Non-Emergency issues call your: Primary Care Provider Call Non-Emergent contact if: you have a fever, you have any medication questions . . "Provider Documentation" section prepared by Shannon Soto. . VTE Core Measure Inpt VTE Proph given/why not?: Unfractionated heparin SQ
--- NOTE | 2016-09-13 15:46 | Discharge Summary ---
Discharge Summary Date of Service Sep 13, 2016. Discharge Summary Admission Date: Sep 08, 2016 at 21:42 Discharge Date: Sep 11, 2016 Discharge Disposition: Home with services Principal Diagnosis: Hyponatremia Secondary Diagnoses/Problems: Generalized Weakness SIADH Hypertensive Urgency Electrolytes Imbalance Hypertensive Urgency P. Afib CAD Diastolic CHF Hypothyroidism Renal artery stenosis Procedures: CT SCAN OF THE BRAIN WITHOUT IV CONTRAST CLINICAL HISTORY: Fall. COMPARISON STUDY: CT of the brain dated 08/08/2008 TECHNIQUE: Unenhanced axial CT scan of the brain is performed from the vertex to the skull base. CT DOSE: 537.48 mGy.cm FINDINGS: Brain parenchyma: There are age-related involutional changes noting moderate to advanced subcortical and periventricular microangiopathic change. There is no hemorrhage, mass effect, or evidence of acute territorial ischemia by CT criteria. A chronic lacunar infarct is identified in the left basal ganglia. Peña-white matter is preserved. No extra-axial fluid collection is seen. Ventricles, sulci, cisterns: Prominent secondary to involutional change. Intracranial vasculature: There is atherosclerotic calcification of the cavernous carotid and vertebral arteries. Calvarium: The skeletal structures are osteopenic. There is no depressed calvarial fracture. Sinuses and mastoids: The visualized paranasal sinuses are clear. The mastoid air cells are well pneumatized. Orbits: The bony orbits are grossly intact. IMPRESSION: Senescent changes as above with no hemorrhage, mass effect, or evidence of acute territorial ischemia by CT criteria. Electronically signed by: Norman Ahumada M.D. 09/08/2016 8:21 PM Dictated Date/Time: 09/08/2016 8:19 PM SINGLE VIEW CHEST CLINICAL HISTORY: Atypical chest pain. Fall. FINDINGS: An AP, portable, upright chest radiograph is compared to study dated 10/06/2015. The examination is degraded by portable technique and patient rotation. The patient is status post midline sternotomy. The heart is enlarged and there is atherosclerotic calcification of the thoracic aorta. Pulmonary vascular structures noncongested. Chronic interstitial thickening and mild elevation of the right hemidiaphragm are similar to previous. There is bibasilar atelectasis. No airspace consolidation, large pleural effusion, or pneumothorax is seen. The skeletal structures are osteopenic. The bony thorax is grossly intact. Surgical clips project over the gastroesophageal junction. Atherosclerotic calcification is noted in the carotid bulbs. IMPRESSION: Cardiomegaly with no acute cardiopulmonary abnormality. Electronically signed by: Norman Ahumada M.D. 09/08/2016 8:23 PM Consultations: Nephrology Medication Reconciliation New Medications: Guaifenesin (Organ-I Nr) 200 Mg Tab 200 MG PO Q12 PRN for cough for 5 Days, #10 TAB Hydralazine HCl (Hydralazine HCl) 50 Mg Tab 50 MG PO BID for 30 Days, #60 TAB Sodium Chloride (Sodium Chloride) 1 Gm Tab 1 GM PO TID for 30 Days, #90 TAB Continued Medications: Alprazolam (Xanax) 0.5 Mg Tab 0.5 MG PO DAILY PRN for Anxiety, TAB Amiodarone Hcl (Cordarone) 200 Mg Tab 200 MG PO QAM, TAB Aspirin (Aspirin 81) 81 Mg Tab 81 MG PO QAM Carvedilol (Coreg) 25 Mg Tab 0.5 TAB PO BID PRN for PULSE >60 ONLY IF PULSE >60 Cholecalciferol (Vitamin D3) 1,000 Unit Tab 1 TAB PO DAILY, TAB Clonidine HCl (Clonidine HCl) 0.1 Mg Tab 0.2 MG PO BID Clopidogrel (Plavix) 75 Mg Tab 75 MG PO QAM, TAB Cyanocobalamin (Cyanocobalamin) 1,000 Mcg/Ml Inj 1 ML IM MONTHLY Docusate Sodium (Colace) 100 Mg Cap 1 CAP PO BID Fluticasone Propionate (Nasal) (Flonase Allergy Relief) 50 Mcg/Act Spr 2 SPRAYS CASEY QAM Folic Acid (Folic Acid) 1 Mg Tab 1 MG PO QPM Furosemide (Lasix) 20 Mg Tab 20 MG PO DAILY, TAB Levothyroxine Sodium (Levothyroxine Sodium) 50 Mcg Tab 1 TAB PO DAILY, TAB Loratadine (Claritin) 10 Mg Tab 10 MG PO PRN for Nasal Congestion, TAB Losartan Potassium (Cozaar) 50 Mg Tab 100 MG PO QAM, TAB Melatonin (Kp Melatonin) 3 Mg Tab 1 TAB PO PRN for Insomnia, TAB Multiple Vitamins W/ Minerals (Centrum Silver Adult 50+) 1 Tab Tab 1 TAB PO QAM Pantoprazole (Protonix) 40 Mg Tab 40 MG PO QAM Polyethylene Glycol 3350 (Miralax) 1 Pow Pow 17 GM PO PRN for Constipation Potassium Ext Rel (Klor-Con) 20 Meq Tabcr 30 MEQ PO DAILY, TAB Pravastatin (Pravachol ) 20 Mg Tab 20 MG PO QAM, TAB Sulfasalazine (Azulfidine) 500 Mg Tab 500 MG PO QID Tamsulosin Hcl (Flomax) 0.4 Mg Cap 0.4 MG PO BID, CAP Trazodone Hcl (Trazodone) 50 Mg Tab 50 MG PO HS PRN for Sleep, TAB Discontinued Medications: Hydralazine HCl (Hydralazine HCl) 25 Mg Tab 25 MG PO BID Admission Information HPI (per Admitting provider): This is a 76 year old male with a PMH of CAD s/p CABG, Diastolic CHF, HTN, HLD, renal artery stenosis s/p stenting on the R side, hx. of SIADH; no longer on salt tablets, paroxysmal atrial fibrillation, hx. of multiple CVAs, ulcerative colitis s/p surgeries, B12 deficiency, hypothyroidism - presents with weakness for the past week. He was seen at [facility] for this weakness and was told he had worsening ulcerative colitis and then was sent home. He presented here due to significant weakness and was found to have a sodium level of 119. Going through the history, seems like patient has been following with Dr. Merritt, nephrology, for SIADH issues in the past. He had been on fluid restriction and salt tablets in the past and about 6 months ago, this was stopped. He was seen last week at [facility] and his sodium level was 129; about a 10 point drop in a week. He states he has been weak, abdominal pain and due to the weakness he fell today. Landed on his back and hit the R side of his face. Did not lose consciousness. Currently he is laying comfortably. Denies fevers/chills, chest pain/shortness of breath/palpitations. Physical Exam (per Admitting): General Appearance: no apparent distress Head: normocephalic, atraumatic Eyes: normal inspection ENT: hearing grossly normal Neck: supple Respiratory/Chest: chest non-tender, lungs clear, normal breath sounds, no respiratory distress, no accessory muscle use Cardiovascular: regular rate, rhythm, no edema, no murmur Abdomen/GI: normal bowel sounds, soft, + tenderness (diffuse, generalized weakness) Extremities/Musculoskelatal: normal capillary refill, no pedal edema Neurologic/Psych: advance agent II-XII nml as tested, no motor/sensory deficits, alert , normal mood/affect, oriented x 3 Skin: normal color Lymphatic: no adenopathy Hospital Course Generalized Weakness Possible related to hyponatremia Na [address] head showed no acute abnormality Cxr showed no finding for pneumonia PT/OT sebastian talked to registered nurse hh case manager for placement to rehab fall precaution Refused to go for inpatient rehab stable 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 SIADH and has not been taking salt tabs and does not do follow fluid restriction urine osm and serum osm are low and TSH wnl continue fluid restriction, salt table and Lasix Na today 126 Monitor BMP nephrology consultation Case discussed with Dr. Merritt that is ok for pt to go home today Continue 1 salt tab TID, 1500ml fluid restriction and check BMP on Friday Dr. Merritt will manage the Na as an outpatient Hypertensive Urgency blood pressure >200/100 on admission BP was very high this morning recheck BP was 160/61 On many BM meds Will consider to increase the Hydralazine to 50mg BID Electrolytes Imbalance K stable Continue monitor electrolytes CAD s/p CABG x3 no chest pain, monitor in tele continue aspirin, Plavix, b-millie, statin Paroxysmal A. Fib continue amiodarone currently in NSR Renal Artery Stenosis s/p R renal artery stenting at [place] continue aspirin and Plavix Hx. of CVA continue Plavix + Aspirin Diastolic CHF continue Lasix daily - may need dose adjustment due to SIADH Hypothyroidism TSH wnl continue Synthroid DVT ppx subq heparin CODE STATUS FULL CODE Total time spent on discharge = 35 minutes This includes examination of the patient, discharge planning, medication reconciliation, and communication with other providers. Discharge Instructions Discharge Instructions Date of Service Sep 11, 2016. Admission Reason for Admission: Hyponatremia Discharge Discharge Diagnosis / Problem: Generalized Weakness, Hyponatremia, Hypertensive Urgency, Electrolytes Imba Discharge Goals Goal(s): Decrease discomfort, Improve function, Improve disease control Activity Recommendations Activity Limitations: resume your previous activity (as tolerated) . Instructions / Follow-Up Instructions / Follow-Up Follow up with nephrology Dr. Merritt on 09/17 @ 11:50 AM Follow up appointment with your primary care provider Dr. Agee on 09/17 @ 12: 45 PM Follow up with Cardiology with Lucia TOLEDO on 09/17 @ 2:15 pm Check BMP On Friday (Lab order given) Continue salt tab three times a day ( Goal for sodium level 130) Follow a 1500ml fluid restriction Continue Physical Therapy Fall Precaution All your doctors appointment are cancelled for tomorrow Current Hospital Diet Patient's current hospital diet: AHA Diet (Heart Healthy) Discharge Diet Recommended Diet: AHA Diet (Heart Healthy) Pending Studies Studies pending at discharge: no Medical Emergencies . Who to Call and When: Medical Emergencies: If at any time you feel your situation is an emergency, please call 911 immediately. . Non-Emergent Contact Non-Emergency issues call your: Primary Care Provider Call Non-Emergent contact if: you have a fever, you have any medication questions . . "Provider Documentation" section prepared by Shannon Soto. . VTE Core Measure Inpt VTE Proph given/why not?: Unfractionated heparin SQ Additional Copies To Natalie Agee M.D.
== END 2016-09-11 19:20 | disposition home health service (06) | DRG 644 ==
LOC: C.EDB 19:08 → C.2E 21:42 → ENRESERV 21:58
PROVIDERS: ADMIT Family Medicine; ATTEND Internal Medicine
DX: E22.2 Syndrome of inappropriate secretion of antidiuretic hormone (principal); I50.30 Unspecified diastolic (congestive) heart failure; I69.351 Hemiplegia and hemiparesis following cerebral infarction affecting right dominant side; S00.01XA Abrasion of scalp, initial encounter; W18.12XA Fall from or off toilet with subsequent striking against object, initial encounter; Y92.002 Bathroom of unspecified non-institutional (private) residence as the place of occurrence of the external cause; I16.0 Hypertensive urgency; I11.0 Hypertensive heart disease with heart failure; E87.6 Hypokalemia; R53.1 Weakness; I48.0 Paroxysmal atrial fibrillation; I25.10 Atherosclerotic heart disease of native coronary artery without angina pectoris; I70.1 Atherosclerosis of renal artery; E03.9 Hypothyroidism, unspecified; E78.5 Hyperlipidemia, unspecified; I69.391 Dysphagia following cerebral infarction; R13.10 Dysphagia, unspecified; Z95.820 Peripheral vascular angioplasty status with implants and grafts; Z95.1 Presence of aortocoronary bypass graft; Z79.02 Long term (current) use of antithrombotics/antiplatelets; Z79.82 Long term (current) use of aspirin; Z79.899 Other long term (current) drug therapy

== ENCOUNTER → 2017-07-21 | Day surgery (SDC) | payer OTHER ==
[~2017-07-21] VITALS: Ht 165.1 cm; Wt 67.3 kg
[~2017-07-21] MED LIST changes: -APR/25 PO; +APR50 PO; +CHOL1000 PO; -CITA20TA9 PO; +CLR10 PO; +CYNI1000 IM; +ESCI10TA17 PO; +FRS/40 PO; +FURO-85 PO; +HYDR-4716 PO; +LEVO50TA6 PO; +MELA1TAB5 PO; -MULT-513 PO; +ORG200 PO; +POLY335019 PO; +POTA-639 PO; -POTA1POW PO; +PRAV20TA PO; -PROM12.57 PO; +PROPOFOL IV EMULSION 10 MG/ML 20 ML VIAL ONE; -PRVC/20 PO; +SODIUM CHLORIDE 0.9% 500ML 500 ML IV ONE; +TAMS0.4C38 PO; -VITAMIN B12 INJ INJ
[2017-07-21 09:25] VITALS: Ht 165.1 cm; Wt 67.3 kg
--- NOTE | 2017-07-21 09:45 | Endo History and Physical ---
History & Physical Date of Service: July 21, 2017. Chief Complaint: esophageal dysphagia Referring Physician: Dr. Natalie Agee History of Present Illness 77 yo presenting for a history of complaints of coughing while eating, inability to initiate a swallow for EGD. He has remained on Plavix Past Medical History Gastrointestinal Disorder, Anxiety, CABG, Hypertension, CVA/TIA Past Surgical History Hx Cardiac Surgery: Yes (CABGX3) Hx Internal Defibrillator: No Hx Pacemaker: No Hx Abdominal Surgery: Yes (PARTIAL GASTRECTOMY) Hx of Implantable Prosthesis: No Hx Post-Op Nausea and Vomiting: No Hx Cancer Surgery: No Hx Thoracic Surgery: No Hx Orthopedic: Yes (BLT FOOT SURGERY, BACK SURGERY X2, RT SHOULDER SCOPE) Hx Urinary Tract Surgery: Yes (stents kidneys) Family History None Social History Smoking Status: Never Smoker Hx Substance Use: No Hx Alcohol Use: No Allergies Coded Allergies: Amlodipine (Verified Adverse Reaction, Intermediate, lower leg edema, 07/21) Pseudoephedrine (Verified Adverse Reaction, Mild, INTOLERANCE-URINARY RETENTION, 09/08/16) Current Medications Reported Home Medications Medications Dose Route/Sig Max Daily Dose Days Date Category Dose Instructions Hydralazine HCl 25 Mg Tab 50 Mg PO TID 07/21/17 Reported Lasix (Furosemide) 20 Mg Tab 1 Tab PO DAILY 90 07/21/17 Reported takes at 1300 Lasix (Furosemide) 40 Mg Tab 40 Mg PO DAILY 07/21/17 Reported Lexapro (Escitalopram Oxalate) 10 Mg Tab 10 Mg PO HS 07/21/17 Reported Organ-I Nr (Guaifenesin) 200 Mg Tab 200 Mg PO Q12 PRN 5 09/11/16 Rx Sodium Chloride 1 Gm Tab 1 Gm PO TID 30 09/11/16 Rx Levothyroxine Sodium 50 Mcg Tab 1 Tab PO DAILY 09/11/16 Reported Miralax (Polyethylene Glycol 3350) 1 Pow Pow 17 Gm PO PRN 09/08/16 Reported Kp Melatonin (Melatonin) 3 Mg Tab 1 Tab PO PRN 09/08/16 Reported Claritin (Loratadine) 10 Mg Tab 10 Mg PO PRN 09/08/16 Reported Cyanocobalamin 1,000 Mcg/Ml Inj 1 Ml IM MONTHLY 09/08/16 Reported Flomax (Tamsulosin Hcl) 0.4 Mg Cap 0.4 Mg PO BID 09/08/16 Reported Pravachol (Pravastatin Sodium) 20 Mg Tab 20 Mg PO QAM 09/08/16 Reported Vitamin D3 (Cholecalciferol) 1,000 Unit Tab 1 Tab PO DAILY 09/08/16 Reported Klor-Con (Potassium Chloride) 20 Meq Tabcr 30 Meq PO DAILY 09/08/16 Reported Flonase Allergy Relief (Fluticasone Propionate (Nasal)) 50 Mcg/Act Spr 2 Sprays CASEY QAM 04/22/16 Reported Centrum Silver Adult 50+ (Multiple Vitamins W/ Minerals) 1 Tab Tab 1 Tab PO QAM 02/23/16 Reported Colace (Docusate Sodium) 100 Mg Cap 1 Cap PO BID 02/23/16 Reported Cordarone (Amiodarone Hcl) 200 Mg Tab 200 Mg PO QAM 12/13/15 Reported Protonix (Pantoprazole Sodium) 40 Mg Tab 40 Mg PO QAM 12/13/15 Reported Cozaar (Losartan Potassium) 50 Mg Tab 100 Mg PO QAM 12/13/15 Reported Trazodone (Trazodone HCl) 50 Mg Tab 50 Mg PO HS PRN 12/13/15 Reported Clonidine HCl 0.1 Mg Tab 0.2 Mg PO BID 10/06/15 Reported Xanax (Alprazolam) 0.5 Mg Tab 0.5 Mg PO DAILY PRN 10/06/15 Reported Plavix (Clopidogrel Bisulfate) 75 Mg Tab 75 Mg PO QAM 10/06/15 Reported Aspirin 81 (Aspirin) 81 Mg Tab 81 Mg PO QAM 10/06/15 Reported Coreg (Carvedilol) 25 Mg Tab 0.5 Tab PO BID PRN 12/22/13 Reported ONLY IF PULSE >60 Folic Acid 1 Mg Tab 1 Mg PO QPM 12/22/13 Reported Azulfidine (Sulfasalazine) 500 Mg Tab 500 Mg PO QID 08/05/08 Reported Vital Signs Weight (Kilograms): 67.27 Height (Feet): 5 Height (Inches): 5 Date Time Temp Pulse Resp B/P (MAP) Pulse Ox O2 Delivery O2 Flow Rate FiO2 07/21/17 09:36 36.4 73 18 161/89 (113) 97 Room Air Physical Exam General Appearance: WD/WN, no apparent distress Respiratory/Chest: Respiratory effort: no dyspnea Auscultation: breath sounds normal, CTA except as noted Cardiovascular: Apical Impulse: not displaced Heart Auscultation: RRR, normal S1, normal S2 Abdomen: Bowel Sounds: normal Inspection & Palpation: soft, non-distended, no tenderness, guarding & rebound Assessment and Plan 77 yo presenting for a history of complaints of coughing while eating, inability to initiate a swallow for EGD. He has remained on Plavix -No dilation today due to being on plavix -Had sharyn on prior examination -Proceed with EGD and if normal, consider Speech therapy eval vs holding plavix and repeat with dilation.
--- NOTE | 2017-07-21 10:11 | GI REPORT ---
Patient Name: Gustavo Gonzales Procedure Date: 07/21/2017 9:33 AM Date of : 1940 Admit Type: Outpatient Age: 77 Gender: Male Attending MD: Marcos Pritchett MD Procedure: Upper GI endoscopy Providers: Marcos Pritchett MD Referring MD: Trang Tamayo DO, Doriann Lavery Indications: Oral phase dysphagia, Oropharyngeal phase dysphagia Medicines: Monitored Anesthesia Care Complications: No immediate complications. Estimated blood loss: None. Estimated Blood Loss: Estimated blood loss: none. Procedure: Pre-Anesthesia Assessment: - Pre-Anesthesia Assessment: - Prior to the procedure, a History and Physical was performed, and patient medications, allergies and sensitivities were reviewed. The patient's tolerance of previous anesthesia was reviewed. Please see [employer] for complete details. - The risks and benefits of the procedure and the sedation options and risks were discussed with the patient. All questions were answered and informed consent was obtained. - Patient identification and proposed procedure were verified prior to the procedure by the physician and the nurse. The procedure was verified in the pre-procedure area in the procedure room. After obtaining informed consent, the endoscope was passed carefully and meticuously under direct vision and only advanced when the lumen was clearly identified, C02 insuflation was utilized throughout the entirity of the procedure. Throughout the procedure, the patient's blood pressure, pulse, and oxygen saturations were monitored continuously. After obtaining informed consent, the endoscope was passed under direct vision. Throughout the procedure, the patient's blood pressure, pulse, and oxygen saturations were monitored continuously. The scope was introduced through the mouth, and advanced to the duodenal bulb. The upper GI endoscopy was accomplished without difficulty. The patient tolerated the procedure well. Findings: Patchy candidiasis was found in the middle third of the esophagus. Cells for cytology were obtained by brushing. A large amount of food (residue) was found in the gastric body. The duodenal bulb was normal. Impression: - Monilial esophagitis. Cells for cytology obtained. - A large amount of food (residue) in the stomach. - Normal duodenal bulb. Recommendation: - Discharge patient to home (with escort). - Return to referring physician as previously scheduled. - Diflucan (fluconazole) 100 mg PO daily for 1 week. - IF symptoms persist after diflucan, then would consider Speech therapy evaluation given complaints and no susannah stenosis identified given prior history. - Consider gastroparesis as contributor - If needs dilated then will require holding plavix Marcos Pritchett MD 07/21/2017 10:11:10 AM This report has been signed electronically. Note Initiated On: 07/21/2017 9:33 AM Number of Addenda: 0 I attest to the content of the Intraoperative Record and orders documented therein, exceptions below {[id number]}
--- NOTE | 2017-07-21 10:33 | Discharge Instructions ---
Endoscopy Patient Instructions Date / Procedure(s) Performed July 21, 2017. EGD Allergy Information Coded Allergies: Amlodipine (Verified Adverse Reaction, Intermediate, lower leg edema, 07/21) Pseudoephedrine (Verified Adverse Reaction, Mild, INTOLERANCE-URINARY RETENTION, 09/08/16) Discharge Date / Findings July 21, 2017. Findings: Patchy candidiasis was found in the middle third of the esophagus. Cells for cytology were obtained by brushing. A large amount of food (residue) was found in the gastric body. The duodenal bulb was normal. Impression: - Monilial esophagitis. Cells for cytology obtained. - A large amount of food (residue) in the stomach. - Normal duodenal bulb. Recommendation: - Discharge patient to home (with escort). - Return to referring physician as previously scheduled. - Diflucan (fluconazole) 100 mg PO daily for 1 week. - IF symptoms persist after diflucan, then would consider Speech therapy evaluation given complaints and no susannah stenosis identified given prior history. - Consider gastroparesis as contributor - If needs dilated then will require holding plavix Medication Instructions Stopped Medication(s): took ASA and Plavix yesterday Provider Instructions Activity Restrictions - No exercising or heavy lifting for 24 hours. - Do not drink alcohol the day of the procedure. - Do not drive a car or operate machinery until the day after the procedure. - Do not make any important decisions or sign important papers in 24 hours after the procedure. Following Day: - Return to full activity which may include returning to work/school. Diet Start your diet with liquids and light foods (jello, soup, juice, toast). Then eat your usual diet if not nauseated. Treatment For Common After Affects For mild abdominal pain, bloating, or excessive gas: - Rest - Eat lightly - Lie on right side Follow-Up Information Follow-up with Dr. Natalie Agee as scheduled Anesthesia Information What You Should Know You have had a procedure that required some medicine to reduce anxiety and discomfort. This treatment is called moderate sedation. After receiving the treatment, you may be sleepy, but you will be able to breathe on your own. The effects of the treatment may last for several hours. Follow these instructions along with Activity/Diet recommendations noted above: * Do NOT do anything where dizziness or clumsiness would be dangerous. * Rest quietly at home today, then you can be up and about tomorrow. * Have a responsible person stay with you the rest of today. * You may have had an I.V. today. If so, you may take the dressing off later today. Recommendations Call your doctor if: * Trouble breathing * Continuous vomiting for more than 24 hours * Temperature above 101 degrees * Severe abdominal pain or bloating * Pain not relieved by pain medicine ordered * There is increased drainage or redness from any incision * A large amount of rectal bleeding greater than 2-3 tablespoons. (If you had a polyp/s removed or have hemorrhoids, a small amount of blood - from the rectum is to be expected.) * You have any unanswered questions or concerns. IN THE EVENT OF A SERIOUS EMERGENCY, GO TO THE NEAREST EMERGENCY ROOM Your discharge instructions were prepared by provider Marcos Pritchett. Patient Instructions Signature Page Gustavo Gonzales Patient (or Guardian) Signature/Date: I have read and understand the instructions given to me by my caregivers. Caregiver/RN/Doctor Signature/Date: The above-named patient and/or guardian has received patient instructions on this date. + Original Patient Signature Page (only) stays with chart. Please make copy for patient.
[2017-07-21 10:37] VITALS: BP 135/82; PULSE 74; O2SAT 96
--- NOTE | 2017-07-21 10:46 | Anesthesiology Progress Note ---
Anesthesia Post Op Note Date & Time July 21, 2017 at 10:45 Vital Signs Pain Intensity: 0 Vital Signs Past 12 Hours Date Time Temp Pulse Resp B/P (MAP) Pulse Ox O2 Delivery O2 Flow Rate FiO2 07/21/17 10:22 71 18 106/73 (84) 95 Room Air 07/21/17 10:07 66 16 95/51 (66) 97 Room Air 07/21/17 09:36 36.4 73 18 161/89 (113) 97 Room Air Notes Mental Status: alert / awake / arousable, participated in evaluation Pt Amnestic to Procedure: Yes Nausea / Vomiting: adequately controlled Pain: adequately controlled Airway Patency, RR, SpO2: stable & adequate BP & HR: stable & adequate Hydration State: stable & adequate Anesthetic Complications: no major complications apparent
== END | disposition home or self-care (01) ==
LOC: C.GI 08:22
PROVIDERS: ATTEND Internal Medicine
DX: R13.10 Dysphagia, unspecified (principal); B37.81 Candidal esophagitis; I48.91 Unspecified atrial fibrillation; I10 Essential (primary) hypertension; F41.9 Anxiety disorder, unspecified; Z95.1 Presence of aortocoronary bypass graft; Z86.73 Personal history of transient ischemic attack (TIA), and cerebral infarction without residual deficits; Z90.3 Acquired absence of stomach [part of]; Z88.8 Allergy status to other drugs, medicaments and biological substances; Z79.899 Other long term (current) drug therapy; Z79.02 Long term (current) use of antithrombotics/antiplatelets; Z79.82 Long term (current) use of aspirin

== ENCOUNTER → 2017-10-16 | Day surgery (SDC) | payer OTHER ==
[2017-10-15 10:52] VITALS: BMI 24.0
[~2017-10-16] VITALS: Ht 165.1 cm; Wt 66.8 kg
[~2017-10-16] MED LIST changes: -APR50 PO; +GUAI1TAB7 PO; +LIDOCAINE HCL 2% 2 ML VIAL (20MG/ML) ONE; -ORG200 PO
[2017-10-16 10:54] VITALS: Ht 165.1 cm; Wt 66.8 kg
--- NOTE | 2017-10-16 11:07 | Endo History and Physical ---
History & Physical Date of Service: Oct 16, 2017. Chief Complaint: DYSPHAGIA Referring Physician: DR BYNUM History of Present Illness Dysphagia Past Medical History Gastrointestinal Disorder, Anxiety, CABG, Hypertension, CVA/TIA Past Surgical History Hx Cardiac Surgery: Yes (CABG X 3 VESSSELS-2007) Hx Internal Defibrillator: No Hx Pacemaker: No Hx Abdominal Surgery: Yes (PARTIAL GASTRECTOMY-) Hx of Implantable Prosthesis: No Hx Post-Op Nausea and Vomiting: No Hx Cancer Surgery: No Hx Thoracic Surgery: No Hx Orthopedic: Yes (BLT FOOT SURGERY, BACK SURGERY X2, RT SHOULDER SCOPE) Hx Urinary Tract Surgery: Yes (CYSTO STENTS X MULTIPLE,REPAIR R RENAL KIDNEY ARTERY-05/2017) Family History None Social History Smoking Status: Former Smoker Hx Substance Use: No Hx Alcohol Use: No Allergies Coded Allergies: Amlodipine (Verified Adverse Reaction, Intermediate, lower leg edema, 10/16) Pseudoephedrine (Verified Adverse Reaction, Mild, INTOLERANCE-URINARY RETENTION, 10/16/17) Current Medications Reported Home Medications Medications Dose Route/Sig Max Daily Dose Days Date Category Dose Instructions Guaifenesin 200 Mg Tab 200 Mg PO Q12H PRN 10/15/17 Reported Hydralazine HCl 25 Mg Tab 50 Mg PO TID 07/21/17 Reported Lasix (Furosemide) 20 Mg Tab 1 Tab PO 1300 90 07/21/17 Reported takes at 1300 Lasix (Furosemide) 40 Mg Tab 40 Mg PO QAM 07/21/17 Reported Lexapro (Escitalopram Oxalate) 10 Mg Tab 10 Mg PO HS PRN 07/21/17 Reported Sodium Chloride 1 Gm Tab 1 Gm PO TID 30 09/11/16 Rx Levothyroxine Sodium 50 Mcg Tab 1 Tab PO QAM 09/11/16 Reported Miralax (Polyethylene Glycol 3350) 1 Pow Pow 17 Gm PO PRN 09/08/16 Reported Kp Melatonin (Melatonin) 3 Mg Tab 1 Tab PO PRN 09/08/16 Reported Claritin (Loratadine) 10 Mg Tab 10 Mg PO PRN 09/08/16 Reported Cyanocobalamin 1,000 Mcg/Ml Inj 1 Ml IM MONTHLY 09/08/16 Reported Flomax (Tamsulosin Hcl) 0.4 Mg Cap 0.4 Mg PO BID 09/08/16 Reported Pravachol (Pravastatin Sodium) 20 Mg Tab 20 Mg PO QAM 09/08/16 Reported Vitamin D3 (Cholecalciferol) 1,000 Unit Tab 1 Tab PO QAM 09/08/16 Reported Klor-Con (Potassium Chloride) 20 Meq Tabcr 10 Meq PO TID 09/08/16 Reported Flonase Allergy Relief (Fluticasone Propionate (Nasal)) 50 Mcg/Act Spr 2 Sprays CASEY BID 04/22/16 Reported Centrum Silver Adult 50+ (Multiple Vitamins W/ Minerals) 1 Tab Tab 1 Tab PO QAM 02/23/16 Reported Colace (Docusate Sodium) 100 Mg Cap 1 Cap PO BID PRN 02/23/16 Reported Cordarone (Amiodarone Hcl) 200 Mg Tab 200 Mg PO QAM 12/13/15 Reported Protonix (Pantoprazole Sodium) 40 Mg Tab 40 Mg PO QAM 12/13/15 Reported Cozaar (Losartan Potassium) 50 Mg Tab 100 Mg PO QAM 12/13/15 Reported Trazodone (Trazodone HCl) 50 Mg Tab 50 Mg PO HS PRN 12/13/15 Reported Clonidine HCl 0.1 Mg Tab 0.2 Mg PO BID 10/06/15 Reported Xanax (Alprazolam) 0.5 Mg Tab 0.5 Mg PO DAILY PRN 10/06/15 Reported Plavix (Clopidogrel Bisulfate) 75 Mg Tab 75 Mg PO QAM 10/06/15 Reported PT WILL FOLLOW INSTRUCTIONS FROM SURGEON PER DAUGHTER Aspirin 81 (Aspirin) 81 Mg Tab 81 Mg PO QAM 10/06/15 Reported PT WILL FOLLOW SURGEON INSTRUCTIONS PER DAUGHTER Coreg (Carvedilol) 25 Mg Tab 0.5 Tab PO BID PRN 12/22/13 Reported ONLY IF PULSE >60 Folic Acid 1 Mg Tab 1 Mg PO QPM 12/22/13 Reported Azulfidine (Sulfasalazine) 500 Mg Tab 500 Mg PO QID 08/05/08 Reported ISADORAE WILL CHECK WITH SURGEON FOR INSTRUCTIONS Vital Signs Weight (Kilograms): 66.82 Height (Feet): 5 Height (Inches): 5 Date Time Temp Pulse Resp B/P (MAP) Pulse Ox O2 Delivery O2 Flow Rate FiO2 10/16/17 11:01 35.9 90 18 152/79 (103) 97 Room Air Physical Exam General Appearance: no apparent distress Respiratory/Chest: Auscultation: breath sounds normal Cardiovascular: Heart Auscultation: RRR Abdomen: Inspection & Palpation: soft Assessment and Plan Stable for EGD
--- NOTE | 2017-10-16 11:50 | GI REPORT ---
Patient Name: Gustavo Gonzales Procedure Date: 10/16/2017 11:35 AM Date of : 1940 Admit Type: Outpatient Age: 77 Gender: Male Attending MD: Terrie Page MD Procedure: Upper GI endoscopy Providers: Terrie Page MD Referring MD: Trang Tamayo DO, Doriann Lavery Indications: Dysphagia Medicines: Monitored Anesthesia Care Complications: No immediate complications. Estimated Blood Loss: Estimated blood loss: none. Procedure: Pre-Anesthesia Assessment: - Prior to the procedure, a History and Physical was performed, and patient medications and allergies were reviewed. The patient is competent. The risks and benefits of the procedure and the sedation options and risks were discussed with the patient. All questions were answered and informed consent was obtained. Patient identification and proposed procedure were verified by the physician and the nurse in the procedure room. Mental Status Examination: alert and oriented. Airway Examination: normal oropharyngeal airway and neck mobility. Respiratory Examination: clear to auscultation. CV Examination: normal. ASA Grade Assessment: III - A patient with severe systemic disease. After reviewing the risks and benefits, the patient was deemed in satisfactory condition to undergo the procedure. The anesthesia plan was to use monitored anesthesia care (MAC). Immediately prior to administration of medications, the patient was re-assessed for adequacy to receive sedatives. The heart rate, respiratory rate, oxygen saturations, blood pressure, adequacy of pulmonary ventilation, and response to care were monitored throughout the procedure. The physical status of the patient was re-assessed after the procedure. After obtaining informed consent, the endoscope was passed under direct vision. Throughout the procedure, the patient's blood pressure, pulse, and oxygen saturations were monitored continuously. The scope was introduced through the mouth, and advanced to the second part of duodenum. The upper GI endoscopy was accomplished without difficulty. The patient tolerated the procedure well. Findings: The Z-line was regular and was found 42 cm from the incisors. The examined esophagus was normal. Dilation not attempted due to food in the stomach (risk of aspiration). A large amount of food (residue) was found in the gastric body. Likely post surgical gastroparesis. Evidence of a patent Billroth I gastroduodenostomy was found. A gastric pouch was found. The gastroduodenal anastomosis was characterized by healthy appearing mucosa. The duodenal bulb and second portion of the duodenum were normal. There is no endoscopic evidence of Zenker's diverticulum in the entire esophagus. Impression: - Z-line regular, 42 cm from the incisors. - Normal esophagus. Empiric dilation not attempted due to food in stomach (risk of aspiration). His dysphagia is likely oropharyngeal due to prior strokes x3. - A large amount of food (residue) in the stomach. Likely post surgical gastroparesis. - Patent Billroth I gastroduodenostomy was found, characterized by healthy appearing mucosa. - Normal duodenal bulb and second portion of the duodenum. - No specimens collected. Recommendation: - Discharge patient to home. - Consider a gastric emptying study. - If dilation deemed necessary, needs to be on clear liquid for for 1-2 days prior to EGD. - Return to referring physician. Terrie Page MD 10/16/2017 11:50:18 AM This report has been signed electronically. Note Initiated On: 10/16/2017 11:35 AM Number of Addenda: 0 I attest to the content of the Intraoperative Record and orders documented therein, exceptions below {[id number]}
--- NOTE | 2017-10-16 11:51 | Discharge Instructions ---
Endoscopy Patient Instructions Date / Procedure(s) Performed Oct 16, 2017. EGD Allergy Information Coded Allergies: Amlodipine (Verified Adverse Reaction, Intermediate, lower leg edema, 10/16) Pseudoephedrine (Verified Adverse Reaction, Mild, INTOLERANCE-URINARY RETENTION, 10/16/17) Discharge Date / Findings Oct 16, 2017. Normal Esophagus. No Zenker's diverticulum seen. Empiric dilation not attempted due to food in stomach. Medication Instructions Stopped Medication(s): PLAVIX Provider Instructions Activity Restrictions - No exercising or heavy lifting for 24 hours. - Do not drink alcohol the day of the procedure. - Do not drive a car or operate machinery until the day after the procedure. - Do not make any important decisions or sign important papers in 24 hours after the procedure. Following Day: - Return to full activity which may include returning to work/school. Diet Start your diet with liquids and light foods (jello, soup, juice, toast). Then eat your usual diet if not nauseated. Treatment For Common After Affects For mild abdominal pain, bloating, or excessive gas: - Rest - Eat lightly - Lie on right side Follow-Up Information Follow-up with DR BYNUM as scheduled Anesthesia Information What You Should Know You have had a procedure that required some medicine to reduce anxiety and discomfort. This treatment is called moderate sedation. After receiving the treatment, you may be sleepy, but you will be able to breathe on your own. The effects of the treatment may last for several hours. Follow these instructions along with Activity/Diet recommendations noted above: * Do NOT do anything where dizziness or clumsiness would be dangerous. * Rest quietly at home today, then you can be up and about tomorrow. * Have a responsible person stay with you the rest of today. * You may have had an I.V. today. If so, you may take the dressing off later today. Recommendations Call your doctor if: * Trouble breathing * Continuous vomiting for more than 24 hours * Temperature above 101 degrees * Severe abdominal pain or bloating * Pain not relieved by pain medicine ordered * There is increased drainage or redness from any incision * A large amount of rectal bleeding greater than 2-3 tablespoons. (If you had a polyp/s removed or have hemorrhoids, a small amount of blood - from the rectum is to be expected.) * You have any unanswered questions or concerns. IN THE EVENT OF A SERIOUS EMERGENCY, GO TO THE NEAREST EMERGENCY ROOM Your discharge instructions were prepared by provider Terrie Page. Patient Instructions Signature Page Gustavo Gonzales Patient (or Guardian) Signature/Date: I have read and understand the instructions given to me by my caregivers. Caregiver/RN/Doctor Signature/Date: The above-named patient and/or guardian has received patient instructions on this date. + Original Patient Signature Page (only) stays with chart. Please make copy for patient.
--- NOTE | 2017-10-16 12:05 | Anesthesiology Progress Note ---
Anesthesia Post Op Note Date & Time Oct 16, 2017 at 12:05 Vital Signs Pain Intensity: 0 Vital Signs Past 12 Hours Date Time Temp Pulse Resp B/P (MAP) Pulse Ox O2 Delivery O2 Flow Rate FiO2 10/16/17 12:00 83 18 115/94 (101) 96 Room Air 10/16/17 11:45 80 18 106/53 (70) 97 Room Air 10/16/17 11:01 35.9 90 18 152/79 (103) 97 Room Air Notes Mental Status: alert / awake / arousable, participated in evaluation Pt Amnestic to Procedure: Yes Nausea / Vomiting: adequately controlled Pain: adequately controlled Airway Patency, RR, SpO2: stable & adequate BP & HR: stable & adequate Hydration State: stable & adequate Anesthetic Complications: no major complications apparent
[2017-10-16 12:15] VITALS: BP 138/76; PULSE 77; O2SAT 97
== END | disposition home or self-care (01) ==
LOC: C.GI 10:28
PROVIDERS: ATTEND Student in an Organized Health Care Education/Training Program
DX: R13.10 Dysphagia, unspecified (principal); I10 Essential (primary) hypertension; K21.9 Gastro-esophageal reflux disease without esophagitis; Z86.73 Personal history of transient ischemic attack (TIA), and cerebral infarction without residual deficits; Z95.1 Presence of aortocoronary bypass graft; Z90.3 Acquired absence of stomach [part of]; Z87.891 Personal history of nicotine dependence

== ENCOUNTER 2019-04-07 11:13 | Inpatient (IN) ==
[2019-04-07 12:00] LABS: Hematocrit (blood only) 29.4 % (42-52); Hemoglobin 10.1 g/dL (14.0-18.0); Mean Corpuscular Hemoglobin 31.4 pg (25-34); Mean Corpuscular Hgb Conc 34.4 g/dL (32-36); Mean Corpuscular Volume 91.3 fL (80-100); Mean Platelet Volume 9.3 fL (7.4-10.4); Platelet Count 126 K/uL (130-400); RDW Coefficient of Variation 13.4 % (11.5-14.5); RDW Standard Deviation 45.1 fL (36.4-46.3); Red Blood Count 3.22 M/uL (4.7-6.1); White Blood Count 5.69 K/uL (4.8-10.8)
[2019-04-07] MEDS ORDERED: SODIUM CHLORIDE 0.9% 500 ML IV SCH (12:00)
[2019-04-07 12:10] LABS: INR 1.3 (0.9-1.1)
[2019-04-07 12:11] LABS: Alanine Aminotransferase 17 U/L (12-78); Albumin Level 3.3 gm/dl (3.4-5.0); Aspartate Aminotransferase 20 U/L (15-37); BUN Creatinine Ratio 7.9 (10-20); Blood Urea Nitrogen 20 mg/dl (7-18); Calcium 8.6 mg/dl (8.5-10.1); Carbon Dioxide 26 mmol/L (21-32); Chloride 107 mmol/L (98-107); Est GFR (African American) 26.7; Glucose 101 mg/dl (70-99); Magnesium 2.4 mg/dl (1.8-2.4); Potassium 3.9 mmol/L (3.5-5.1); Sodium 139 mmol/L (136-145)
[2019-04-07 12:18] LABS: Basophils # (auto) 0.02 K/uL (0-0.2); Basophils % (auto) 0.4 %; Eosinophils # (auto) 0.01 K/uL (0-0.5); Eosinophils % (auto) 0.2 %; Immature Granulocytes # (auto) 0.05 K/uL (0.00-0.02); Immature Granulocytes % (auto) 0.9 %; Lymphocytes # (auto) 0.98 K/uL (1.2-3.4); Lymphocytes % (auto) 17.2 %; Monocytes % (auto) 15.8 %; Neutrophils # (auto) 3.73 K/uL (1.4-6.5); Neutrophils % (auto) 65.5 %
[2019-04-07 12:29] LABS: Albumin Globulin Ratio 1.3 (0.9-2); Alkaline Phosphatase 91 U/L (45-117); Bilirubin,Total 0.9 mg/dl (0.2-1); Globulin 2.6 gm/dl (2.5-4.0); Thyroid Stimulating Hormone 0.387 uIu/ml (0.300-4.500); Total Protein 5.9 gm/dl (6.4-8.2); Troponin I 0.125 ng/ml (0-0.045)
[2019-04-07] MEDS ORDERED: SODIUM CHLORIDE 0.9% 1000ML 500 ML IV ONE (13:34)
[2019-04-07] MEDS ORDERED: ASPIRIN 81 MG CHEW PO STA (13:34)
--- NOTE | 2019-04-07 14:40 | Electrocardiogram Report ---
Test Reason : Blood Pressure : / mmHG Vent. Rate : 084 BPM Atrial Rate : 084 BPM P-R Int : 184 ms QRS Dur : 094 ms QT Int : 406 ms P-R-T Axes : 011 067 054 degrees QTc Int : 479 ms Normal sinus rhythm Low voltage QRS Borderline ECG When compared with ECG of 10-SEP-2016 06:51, DC interval has decreased QRS voltage has decreased Confirmed by Fabrice Tena ([id number]) on 04/07/2019 2:40:29 PM Referred By: Clari Koehler Confirmed By:Fabrice Tena
[2019-04-07] MEDS ORDERED: FLUTICASONE PROPIONATE NA SPR 16 GM BTL PRN (15:28)
[2019-04-07] MEDS ORDERED: ACETAMINOPHEN 325 MG TAB PO PRN (15:28)
[2019-04-07] MEDS ORDERED: TRAZODONE HCL 50 MG TAB PO PRN (15:28)
[2019-04-07] MEDS ORDERED: POLYETHYLENE (MIRALAX) 17 GM PACK PO PRN (15:28)
[2019-04-07] MEDS ORDERED: ONDANSETRON INJ 2 MG/ML 2 ML VIAL IV PRN (15:28)
--- NOTE | 2019-04-07 15:36 | History & Physical Report ---
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 Pt admitted to [facility] 02/03-02/05 for new onset NICHOLAS - found to be 2/2 to urinary retention with peak creatinine 3.6. NICHOLAS resolved with montoya cath and creatinine returned to baseline 1.2 Now being admitted for return of Acute on chronic CKD 3 admit to PCU obtain Renal U/S and renal doppler given hx of LILIA s/p stenting to R kidney obtain UA and urine studies prot/creat ratio, urine na, urine cr, eosinophils, hold nephrotoxic agents losartan and lasix consult nephrology Dr. Deluna obtain detailed records from recent [place] hospitalization IVF 100c/hr NS monitor UOP, strict I and O, daily weight (4) CAD (coronary artery disease): History of CABG x3 in 2007 No active chest pain Initial troponin 0.125, no ischemic EKG changes Continue ASA, Plavix, statin, Coreg Hold losartan given NICHOLAS Trend troponin every 6 hours - now down trending to 0.079 Repeat EKG will hold on repeating echo at this time given last done 01/2019 (5) History of CVA (cerebrovascular accident): History multiple CVAs in past, 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, dysphagia and wheelchair-bound On ASA, Plavix, statin aspiration precautions, pt with recurrent need for esophageal dilatation every 6mon to 1 year History of left KELLEN 50 to 69% and PAF (6) Chronic diastolic CHF (congestive heart failure): Last echocardiogram 02/08/2019 LVEF 55 to 60% Euvolemic Continue Coreg, but hold losartan and Lasix given NICHOLAS Daily weights, strict I's and O's (7) HTN (hypertension): blood pressure controlled on multidrug regimen continue coreg, clonidine, hydralazine with parameters hold losartan and lasix given NICHOLAS (8) Dyslipidemia: continue statin (9) History of atrial fibrillation: currently rate and rhythm controlled PAF on amiodarone, coreg not on oral anticoagulation, per outpt records poor candidate (10) Anemia: H/H stable at 10.1 and 29.4 Monitor CBC B12 injection monthly Normocytic normochromic, likely in setting of chronic renal disease (11) Peripheral vascular disease: continue asa, plavix, statin (12) Ulcerative colitis: continue sulfasalazine (13) DVT prophylaxis: SQ Heparin Disposition: admit to PCU Follow up: PCP Dr. Agee upon discharge Pt was seen and examined in collaboration with Dr. Moses, please see addendum History of Present Illness Chief Complaint: Referred by PCP secondary to abnormal labs. Primary Care Provider: Natalie Agee MD This is a 78-year-old male who has significant PMH of CAD with history of CABG x3 in 2007, history of multiple CVAs last in 2016 the left MCA with residual right hemiparesis, HTN, HLD, chronic diastolic heart failure, history of atrial arrhythmias, CKD stage III, SIADH, COPD, PVD, depression, history of gastric ulcer status post gastrectomy, left carotid artery stenosis 50 to 69%, hx of R renal artery stenosis s/p IR intervention with multiple stents 2017 who presents to ED at the referral of his PCP secondary to abnormal labs. Of significance patient recently hospitalized at [facility] in [place] from 02/03-02/15. 2 daughters are at bedside. Initially presented to [facility] secondary to flulike symptoms when found to be in NICHOLAS. He has baseline creatinine of 1.3- 1.4 with CKD stage III. During the hospitalization he was found to have urinary retention and bladder outlet obstruction requiring Montoya catheter placement. Renal function returned to baseline of 1.2. Montoya was removed and he was discharged to home. Since being at home he has had about approximately 20 pound weight loss, increased weakness, fatigue, increased sleeping, depressed mood, poor taste in mouth, poor appetite and JENKINS. At baseline he is wheelchair-bound secondary to right hemiparesis from prior stroke in 2016. Currently he states, "I am very hungry." But is otherwise had a poor appetite. He currently denies any fever, chills, sweats, lightheadedness, dizziness, syncope, chest pain, palpitations, cough, hemoptysis, shortness of breath at rest, vomiting, diarrhea, abdominal pain, melena, hematochezia, hematuria. He does elicit to decreased urine output but denies any increased urgency. Per daughters he takes his medications as prescribed because of his increase sleeping regimen he has not been taking them time appropriate. Approximately 3 to 4 days ago patient was seen by Clari Koehler on 04/02/19 secondary to rhinitis symptoms. At that visit daughter requested renal function checked. BUN and creatinine were 22 and 2.7. Repeat on 04/06/2019 revealed BUN 23 and creatinine 3.0. As of worsening renal function he was referred to ED for further evaluation and treatment. In ED patient remained hemodynamically stable. BUN/creatinine 20 and 2.59, H&H stable at 10.1 and 49.4, WBC 5.69, platelet 126, INR 1.3, electrolytes WNL. Troponin elevated 0.125 and TSH normal 1.387. EKG revealed normal sinus rhythm with no acute ischemic changes. Bladder scan obtained which was negative for urinary retention. Allergies Allergy/AdvReac Type Severity Reaction Status Date / Time amlodipine AdvReac Intermediate lower leg Verified 09/02/18 08:00 edema pseudoephedrine AdvReac Mild INTOLERANCE-URINARY Verified 09/02/18 08:00 RETENTION Home Medications Home Medications Medication Instructions Recorded Confirmed Type amiodarone 200 mg PO QAM 12/17/17 04/07/19 History aspirin [Aspir-81] 81 mg PO QAM 12/17/17 04/07/19 History cholecalciferol (vitamin D3) 1,000 unit PO QAM 12/17/17 04/07/19 History [Vitamin D3] clopidogrel [Plavix] 75 mg PO QAM 12/17/17 04/07/19 History cyanocobalamin (vitamin B-12) 1,000 mcg IM MONTHLY 12/17/17 04/07/19 History docusate sodium [Colace] 100 mg PO BID PRN 12/17/17 04/07/19 History escitalopram oxalate [Lexapro] 10 mg PO QPM 12/17/17 04/07/19 History fluticasone propionate [Flonase 2 spray INTRANASAL BID PRN 12/17/17 04/07/19 History Allergy Relief] folic acid 1 mg PO QPM 12/17/17 04/07/19 History furosemide [Lasix] 20 - 40 mg PO BID 12/17/17 04/07/19 History guaifenesin 1 dose PO QDL 12/17/17 04/07/19 History hydralazine 25 mg PO TID 12/17/17 04/07/19 History loratadine [Claritin] 10 mg PO DAILY PRN 12/17/17 04/07/19 History losartan 100 mg PO QAM 12/17/17 04/07/19 History melatonin 3 mg PO HS PRN 12/17/17 04/07/19 History multivitamin 1 tab PO QAM 12/17/17 04/07/19 History pantoprazole 40 mg PO BID 12/17/17 04/07/19 History polyethylene glycol 3350 [Miralax] 1 dose PO UD PRN 12/17/17 04/07/19 History potassium chloride [Klor-Con M10] 10 meq PO QID 12/17/17 04/07/19 History pravastatin 20 mg PO QAM 12/17/17 04/07/19 History sulfasalazine 500 mg PO QID 12/17/17 04/07/19 History tamsulosin 0.4 mg PO QPM 12/17/17 04/07/19 History trazodone 50 mg PO HS PRN 12/17/17 04/07/19 History levothyroxine 100 mcg PO DAILYBB 08/24/18 04/07/19 History acetaminophen [Tylenol Extra 500 mg PO Q6H PRN 04/07/19 04/07/19 History Strength] azelastine 1 spray INTRANASAL DAILY 04/07/19 04/07/19 History carvedilol 25 mg PO BID 04/07/19 04/07/19 History clonidine HCl 0.2 mg PO BID 04/07/19 04/07/19 History finasteride 5 mg PO DAILY 04/07/19 04/07/19 History Past Med/Surg History Medical History Anxiety Atrial fibrillation DX'D 2017-ON THINNER Chronic back pain Coronary artery disease Depression Former smoker History of colitis History of palpitations Hypothyroidism On anticoagulant therapy Osteoarthritis SOB (shortness of breath) on exertion Stroke X 3-LAST ONE 07/2015 R SIDED [id number]-P/U DR AMBRIZ PRDominic ONLY DIFFICULTY SWALLOWING Surgical History History of back surgery X 2 History of colonoscopy BENIGN POLYPS History of coronary artery bypass graft 3 VESSELS 2007 [facility] [place] History of esophagogastroduodenoscopy (EGD) History of renal stent LEFT X 5 STENTS-F/U DR VALLE History of renal stent History of repair of rotator cuff RIGHT Hx of foot surgery R/L RAYMUNDO Hx of resection of stomach PARTIAL BLEEDING ULCER Family History Mother Myocardial infarction Sister , 39 Cerebral aneurysm Sister Myocardial infarction, Onset Age: 40 Social History Preferred Language: Syriac Communication Ability: Effective [employer]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 Beliefs That Will Affect Care: None Current Living Situation: Family Current Living Situation Comment: lives with grandson Other Information That Helps Us Care for You: No Feels Safe at Home: Yes Safety Concerns: Feels Safe At This Time Smoking Status: Former smoker Tobacco Type: cigarettes ; Do You Dip or Chew Tobacco: No ; Smoking End Date: 1978 ; Second Hand Exposure: Yes () ; Tobacco Cessation Education Requested by Patient: No Hx Alcohol Use: No Hx Substance Use: No Review of Systems Review of Systems: All systems reviewed & are unremarkable except as noted in HPI & below Physical Exam Physical Exam: Constitutional: WD/WN, M, vitals as above, NAD, sitting up in bed, pleasant, conversing easily Head: Normocephalic, Atraumatic Eyes: PERRL, conjunctivae normal, anicteric sclerae ENMT: external ear and nose normal, oropharynx normal dry mucous membranes Neck: trachea midline, no thyromegaly normal visual inspection Respiratory: normal respiratory effort, lungs clear to auscultation, no wheeze, rales, rhonchi. Normal insp/exp effort, no accessory muscle use Cardiovascular: RRR, 2/6 BRENDON noted RUSB, no edema Vessels: no JVD, + B/L carotid bruit Chest: normal inspection of chest Abdomen: normal bowel sounds, soft, nontender, no hepatosplenomegaly Musculoskeletal: no cyanosis or clubbing, RUE/RLE 3/5, pt with R hemiparesis Skin: no rashes, warm and dry normal turgor Neurologic: PERRL, EOMI, accommodation nl, no face palsy, no dysarthria CN's II-XI intact bilaterally and moves all extremities Psychiatric: A+Ox3, euthymic affect Lymphatic: no cervical or axillary lymphadenopathy : deferred , bladder scan ~ 250cc Results & Data Vital Signs (Past 12 Hours) Vital Signs Temp Pulse Pulse Resp BP BP Pulse Ox 04/07/19 15:15 36.4 C L 78 19 131/71 96 04/07/19 14:30 76 28 H 138/79 94 04/07/19 14:00 81 28 H 111/67 04/07/19 13:46 78 36 H 131/75 04/07/19 13:30 78 31 H 94 04/07/19 13:00 80 25 H 96 04/07/19 12:30 79 27 H 96 04/07/19 12:00 83 43 H 96 04/07/19 11:34 86 25 H 04/07/19 11:20 37.1 C 90 20 128/59 L 94 Laboratory Results Short CBC 04/07/19 04/07/19 Range/Units 11:40 11:40 WBC 5.69 (4.8-10.8) K/uL Hgb 10.1 L (14.0-18.0) g/dL Hct 29.4 L (42-52) % Plt Count 126 L (130-400) K/uL Creatinine 2.59 H (0.6-1.4) mg/dl Troponin I 0.125 H* (0-0.045) ng/ml BMP 04/07/19 11:40 Sodium 139 Potassium 3.9 Chloride 107 Carbon Dioxide 26 BUN 20 H Creatinine 2.59 H Glucose 101 H Calcium 8.6 Cardiac Enzymes 04/07/19 Range/Units 11:40 Troponin I 0.125 H* (0-0.045) ng/ml Liver Function 04/07/19 Range/Units 11:40 Total Bilirubin 0.9 (0.2-1) mg/dl AST 20 (15-37) U/L ALT 17 (12-78) U/L Alkaline Phosphatase 91 (45-117) U/L Albumin 3.3 L (3.4-5.0) gm/dl Diagnostic Findings CXR: pending Medications Administered Discontinued Medications Aspirin (Aspirin Chew) 243 mg PO NOW STA Stop: 04/07/19 13:35 Last Admin: 04/07/19 13:44 Dose: 243 mg Documented by: [id number] Sodium Chloride (Nss) 500 mls @ 999 mls/hr IV .Q31M FLORENCIO Stop: 04/07/19 12:30 Last Infusion: 04/07/19 12:30 Dose: 0 mls/hr Documented by: [id number] Admin: 04/07/19 12:00 Dose: 999 mls/hr Documented by: [id number] Sodium Chloride (Nss 1000ml) 500 mls @ 999 mls/hr IV .Q31M ONE Stop: 04/07/19 14:04 Last Infusion: 04/07/19 14:45 Dose: 0 mls/hr Documented by: [id number] Admin: 04/07/19 13:47 Dose: 999 mls/hr Documented by: [id number] ECG Rate (beats per minute): 84 Additional Comments: QTC 479ms Code Status & VTE Plan Code Status Full Code VTE Prophylaxis Plan VTE Prophylaxis will be ordered: Yes Supervising Physician Co-Signing Physician Notes HISTORY: Record reviewed. Patient interviewed and examined. Care coordinated with Roxie Lindsey PA-C. Please refer to her documentation for complete history. Briefly, 78-year-old male with history of ischemic heart disease, diastolic CHF, hypertension, cerebrovascular disease, chronic kidney disease, and other problems. Referred to the ED for evaluation of acute kidney injury. Patient states that he has not been eating or drinking well. He often coughs after drinking liquids. Also experiencing dysphagia to solids. He has lost at least 12, and maybe 20, pounds. EXAM: General- no distress Lungs- clear to auscultation; no respiratory distress Cardiovascular- RRR; no gallop; no JVD; no pretibial edema Abdomen- + bowel sounds, soft, nontender Extremities- no cyanosis; no calf tenderness Neuro- alert, RUE strength 1/5, RLE strength 4/5 Skin- warm & dry DATA: Hemoglobin 10.1, white count 5690, platelet count 126,000. PT 13.0, INR 1.3. Sodium 139, potassium 3.9, chloride 107, CO2 26, BUN 20, creatinine 2.59, glucose 101. Serum troponin 0 0.125. TSH 0.387. Other lab studies as noted. Chest x-ray reviewed and demonstrated postsurgical changes, elevated right hemidiaphragm, EKG performed at 1138 reviewed and demonstrated normal sinus rhythm at 84 / minute, no acute ST or T wave abnormalities. ASSESSMENT AND PLAN: Acute kidney injury. Serum creatinine 2.59, compared to baseline around 1.2. May have prerenal azotemia secondary to inadequate fluid intake. Check renal ultrasound and duplex of renal arteries. Hold losartan. Consult Nephrology. Coronary artery disease. No anginal symptoms. Slight elevated troponin could be secondary to acute kidney injury. Had recent echocardiogram. Continue aspirin, clopidogrel, carvedilol, statin. Dysphagia/suspected aspiration. History of stroke; status post esophageal dilatation. Aspiration precautions. 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 Consult GI. Weight loss. Reported weight loss of 12 to 20 pounds. Dysphagia may be contributing factor. Also has history of ulcerative colitis. Consider possibility of malignancy. Patient recently hospitalized at [facility] in [place]. Old records requested to see what studies were obtained at that time. Consult GI. Consult nutrition. Please refer to JULEE Lindsey's documentation for discussion of other issues.
[2019-04-07] MEDS: SODIUM CHLORIDE 0.9% 1000ML 1,000 ML IV SCH (16:00)
--- NOTE | 2019-04-07 16:03 | XRay Report ---
XR chest 1V portable CLINICAL HISTORY: 78 years-old Male presenting with JENKINS. TECHNIQUE: Portable upright AP view of the chest was obtained. COMPARISON: 09/08/2016. FINDINGS: Median sternotomy wires and median sternal surgical clips. Atherosclerosis of the aortic arch. Cardia c silhouette normal in size. Mild elevation of the right hemidiaphragm unchanged. Minimal bandlike op acity at the right lung base. No new focal opacity. No large effusion or pneumothorax. Degenerative c hanges of the thoracic spine. Scoliosis. Osteopenia may be present. External leads overlie the upper abdomen. IMPRESSION: 1. Minimal right basilar opacities likely atelectasis or scarring. This is unchanged. No convincing evidence of acute cardiopulmonary disease. ACT 112: Negative or not required by law. Electronically signed by: Markel Napier M.D. 04/07/2019 4:02 PM
[2019-04-07] MEDS: sulfaSALAzine 500 MG TABLET PO SCH ×2 (16:40→20:43)
--- NOTE | 2019-04-07 17:11 | Emergency Department Note ---
Entered by Karmen Cedeño acting as a scribe for History of Present Illness General Chief complaint: Abnormal Labs/Diagnostic Testing Stated complaint: ABNORMAL LAB Time Seen by Provider: 04/07/19 11:32 Source: patient and family (daughter) History of Present Illness Onset (ago): week(s) (couple) Location: left and right Pain Consistency: + other (episode) Quality: + other (concern for dehydration and poor kidney function ) Associated symptoms: + other (+lethargic; +bad taste to food; +eyes feel "gritty and full of dirt" -hematuria; ); no fever/chills The patient is a 78 year old male, with past medical history of CVA, CHF, HTN, and s/p CABG x3 and kidney stents, who presents to the Emergency Room with concerns of an episode of dehydration and poor kidney function over the past couple weeks. The patients daughter states that the patient has been lethargic and tired recently and just not himself. She states the patient was hospitalized at [facility] in [place] for 12 days in January for poor kidney function. She states the patient's kidney function was 16.5 at that time, and she states it was found that the patients kidney function was again 16.5 yesterday. The daughter of the patient also notes the patient had 5 stents placed in his kidney due to narrowing of arteries last year. The patient states he has been eating and drinking as usual, but he states food has tasted lousy for him over the past couple weeks. When asked about urinary symptoms, the patient states he has trouble getting started, but he denies hematuria. He states he lives with his grandson. The patient notes his eyes have felt gritty and full of dirt. He denies cold symptoms. He also denies ever being on dialysis before. The patient states he has been keeping up with his medications. He reports he has experienced weight loss recently. Home Medications Home Medications Medication Instructions Recorded Confirmed Type amiodarone 200 mg PO QAM 12/17/17 04/07/19 History aspirin [Aspir-81] 81 mg PO QAM 12/17/17 04/07/19 History cholecalciferol (vitamin D3) 1,000 unit PO QAM 12/17/17 04/07/19 History [Vitamin D3] clopidogrel [Plavix] 75 mg PO QAM 12/17/17 04/07/19 History cyanocobalamin (vitamin B-12) 1,000 mcg IM MONTHLY 12/17/17 04/07/19 History docusate sodium [Colace] 100 mg PO BID PRN 12/17/17 04/07/19 History escitalopram oxalate [Lexapro] 10 mg PO QPM 12/17/17 04/07/19 History fluticasone propionate [Flonase 2 spray INTRANASAL BID PRN 12/17/17 04/07/19 His tory Allergy Relief] folic acid 1 mg PO QPM 12/17/17 04/07/19 History furosemide [Lasix] 20 - 40 mg PO BID 12/17/17 04/07/19 History guaifenesin 1 dose PO QDL 12/17/17 04/07/19 History hydralazine 25 mg PO TID 12/17/17 04/07/19 History loratadine [Claritin] 10 mg PO DAILY PRN 12/17/17 04/07/19 History losartan 100 mg PO QAM 12/17/17 04/07/19 History melatonin 3 mg PO HS PRN 12/17/17 04/07/19 History multivitamin 1 tab PO QAM 12/17/17 04/07/19 History pantoprazole 40 mg PO BID 12/17/17 04/07/19 History polyethylene glycol 3350 [Miralax] 1 dose PO UD PRN 12/17/17 04/07/19 History potassium chloride [Klor-Con M10] 10 meq PO QID 12/17/17 04/07/19 History pravastatin 20 mg PO QAM 12/17/17 04/07/19 History sulfasalazine 500 mg PO QID 12/17/17 04/07/19 History tamsulosin 0.4 mg PO QPM 12/17/17 04/07/19 History trazodone 50 mg PO HS PRN 12/17/17 04/07/19 History levothyroxine 100 mcg PO DAILYBB 08/24/18 04/07/19 History acetaminophen [Tylenol Extra 500 mg PO Q6H PRN 04/07/19 04/07/19 History Strength] azelastine 1 spray INTRANASAL DAILY 04/07/19 04/07/19 History carvedilol 25 mg PO BID 04/07/19 04/07/19 History clonidine HCl 0.2 mg PO BID 04/07/19 04/07/19 History finasteride 5 mg PO DAILY 04/07/19 04/07/19 History Allergies Allergy/AdvReac Type Severity Reaction Status Date / Time amlodipine AdvReac Intermediate lower leg Verified 09/02/18 08:00 edema pseudoephedrine AdvReac Mild INTOLERANCE-URINARY Verified 09/02/18 08:00 RETENTION Past Med/Surg History Medical History Anxiety Atrial fibrillation DX'D 2017-ON THINNER Chronic back pain Coronary artery disease Depression Former smoker History of colitis History of palpitations Hypothyroidism On anticoagulant therapy Osteoarthritis SOB (shortness of breath) on exertion Stroke X 3-LAST ONE 07/2015 R SIDED [id number]-Y/U DR AMBRIZ PRN ONLY DIFFICULTY SWALLOWING Surgical History History of back surgery X 2 History of colonoscopy BENIGN POLYPS History of coronary artery bypass graft 3 VESSELS 2007 [facility] [place] History of esophagogastroduodenoscopy (EGD) History of renal stent LEFT X 5 STENTS-F/U DR VALLE History of renal stent History of repair of rotator cuff RIGHT Hx of foot surgery R/L RAYMUNDO Hx of resection of stomach PARTIAL BLEEDING ULCER Family History Mother Myocardial infarction Sister , 39 Cerebral aneurysm Sister Myocardial infarction, Onset Age: 40 Social History Preferred Language: Bel[place]an Communication Ability: Effective 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 and A total of 10 systems reviewed and were otherwise negative Physical Exam Vital Signs Vital Signs - 24 hr 04/07/19 11:20 04/07/19 11:34 04/07/19 12:00 Temperature 37.1 C Temperature Source Oral Pulse Rate 90 86 83 Pulse Rate from SpO2 Sensor 83 Respiratory Rate 20 25 H 43 H Respiratory Effort / Characteristics Non-Labored Spontaneous Respiratory Depth Normal Blood Pressure 128/59 L Blood Pressure Mean 82 Pulse Oximetry 94 96 Oxygen Delivery Method Room Air Sepsis Recent Fever Within 48 Hours No Sepsis New/Unexplained Change in Mental Status No Sepsis Action Taken by Nursing No Action Required 04/07/19 12:30 04/07/19 13:00 04/07/19 13:30 Temperature Temperature Source Pulse Rate 79 80 78 Pulse Rate from SpO2 Sensor 79 80 79 Respiratory Rate 27 H 25 H 31 H Respiratory Effort / Characteristics Respiratory Depth Blood Pressure Blood Pressure Mean Pulse Oximetry 96 96 94 Oxygen Delivery Method Sepsis Recent Fever Within 48 Hours Sepsis New/Unexplained Change in Mental Status Sepsis Action Taken by Nursing 04/07/19 13:46 04/07/19 14:00 Temperature Temperature Source Pulse Rate 78 81 Pulse Rate from SpO2 Sensor Respiratory Rate 36 H 28 H Respiratory Effort / Characteristics Respiratory Depth Blood Pressure 131/75 111/67 Blood Pressure Mean 91 89 Pulse Oximetry Oxygen Delivery Method Sepsis Recent Fever Within 48 Hours Sepsis New/Unexplained Change in Mental Status Sepsis Action Taken by Nursing GENERAL: Awake, alert, weak and fatigued-appearing, in no distress HENT: Normocephalic, atraumatic. Dry mucus membranes. EYES: Normal conjunctiva. Sclera non-icteric. RESPIRATORY: Clear to auscultation. No wheezes. Normal respiratory effort. CARDIAC: Normal rate. Normal rhythm. Extremities warm and well perfused. GI: Soft, non-distended. No tenderness to palpation. RECTAL: Deferred. MUSCULOSKELETAL: Atraumatic. Chest examination reveals no tenderness. LOWER EXTREMITIES: Calves are equal size bilaterally and non-tender. NEURO: Normal sensorium. No sensory or motor deficits noted. No facial droop. SKIN: Warm and dry. No jaundice noted. Course Course 1141: Past medical records reviewed. The patient was evaluated in room C5. A complete history and physical exam was performed. 1346: I reviewed the patient's case with Dr. Moses-Hospitalist Holly. Dr. Moses will evaluate the patient for further management. Consultations Consultation #1: I reviewed the patient's case with Dr. Moses-Hospitalist Holly. Dr. Moses will evaluate the patient for further management. Time: 13:46 Administered Medications Sodium Chloride (Nss 1000ml) 1,000 mls @ 100 mls/hr IV .Q10H FLORENCIO Stop: 05/07/19 15:27 Last Admin: 04/07/19 16:00 Dose: 100 mls/hr Documented by: [id number] Sulfasalazine (Azulfidine) 500 mg PO QID FLORENCIO Stop: 05/07/19 16:59 Last Admin: 04/07/19 16:40 Dose: 500 mg Documented by: [id number] Discontinued Medications Aspirin (Aspirin Chew) 243 mg PO NOW STA Stop: 04/07/19 13:35 Last Admin: 04/07/19 13:44 Dose: 243 mg Documented by: [id number] Sodium Chloride (Nss) 500 mls @ 999 mls/hr IV .Q31M FLORENCIO Stop: 04/07/19 12:30 Last Infusion: 04/07/19 12:30 Dose: 0 mls/hr Documented by: [id number] Admin: 04/07/19 12:00 Dose: 999 mls/hr Documented by: [id number] Sodium Chloride (Nss 1000ml) 500 mls @ 999 mls/hr IV .Q31M ONE Stop: 04/07/19 14:04 Last Infusion: 04/07/19 14:45 Dose: 0 mls/hr Documented by: [id number] Admin: 04/07/19 13:47 Dose: 999 mls/hr Documented by: [id number] Medical Decision Making Differential Diagnosis Differential diagnosis: Etiologies such as metabolic, infection, hypo/hyperglycemia, electrolyte abnormalities, cardiac sources, intracerebral event, toxicologic, neurologic, as well as others were entertained. Medical Records Attestation: I reviewed the patient's medical records. Home Medications Current Medication List: was personally reviewed by me Laboratory Data Attestation: I reviewed the patient's lab results. Result diagrams: 04/07/19 11:40 04/07/19 11:40 Lab Results 04/07/19 04/07/19 04/07/19 Range/Units 11:40 11:40 11:40 WBC 5.69 (4.8-10.8) K/uL RBC 3.22 L (4.7-6.1) M/uL Hgb 10.1 L (14.0-18.0) g/dL Hct 29.4 L (42-52) % MCV 91.3 (80-100) fL MCH 31.4 (25-34) pg MCHC 34.4 (32-36) g/dL RDW Std Deviation 45.1 (36.4-46.3) fL RDW Coeff of Dino 13.4 (11.5-14.5) % Plt Count 126 L (130-400) K/uL MPV 9.3 (7.4-10.4) fL Immature Gran % (Auto) 0.9 % Neut % (Auto) 65.5 % Lymph % (Auto) 17.2 % [place] % (Auto) 15.8 % Eos % (Auto) 0.2 % Baso % (Auto) 0.4 % Immature Gran # (Auto) 0.05 H (0.00-0.02) K/uL Neut # (Auto) 3.73 (1.4-6.5) K/uL Lymph # (Auto) 0.98 L (1.2-3.4) K/uL [place] # (Auto) 0.90 H (0.11-0.59) K/uL Eos # (Auto) 0.01 (0-0.5) K/uL Baso # (Auto) 0.02 (0-0.2) K/uL PT 13.0 H (9.0-12.0) Seconds INR 1.3 H (0.9-1.1) Sodium 139 (136-145) mmol/L Potassium 3.9 (3.5-5.1) mmol/L Chloride 107 (98-107) mmol/L Carbon Dioxide 26 (21-32) mmol/L Anion Gap 6.0 (3-11) BUN 20 H (7-18) mg/dl Creatinine 2.59 H (0.6-1.4) mg/dl Est Cr Clr Drug Dosing Not Reportable Est GFR ( Amer) 26.7 Est GFR (Non-Af Amer) 23.0 BUN/Creatinine Ratio 7.9 L (10-20) Glucose 101 H (70-99) mg/dl Calcium 8.6 (8.5-10.1) mg/dl Magnesium 2.4 (1.8-2.4) mg/dl Total Bilirubin 0.9 (0.2-1) mg/dl AST 20 (15-37) U/L ALT 17 (12-78) U/L Alkaline Phosphatase 91 (45-117) U/L Troponin I 0.125 H* (0-0.045) ng/ml Total Protein 5.9 L (6.4-8.2) gm/dl Albumin 3.3 L (3.4-5.0) gm/dl Globulin 2.6 (2.5-4.0) gm/dl Albumin/Globulin Ratio 1.3 (0.9-2) TSH 0.387 (0.300-4.500) uIu/ml ECG Data Attestation: I personally reviewed and interpreted this ECG as follows: Indication: + weakness Rate (beats per minute): 84 Rhythm: + normal sinus ECG Intervals/blocks: + Normal QRS ECG Tyner: + Normal ECG ST segments: no ST depression and no ST elevation ECG Findings: no PVCs Blood Pressure Blood Pressure Findings: Elevated blood pressure Blood Pressure Disposition: further management by hospitalist NITISH Narrative Patient is a 78-year-old gentleman presenting with weakness and concern for renal dysfunction on outpatient labs from yesterday. Patient has a history of chronic kidney disease, hypertension, atrial fibrillation, renal artery stenosis status post stents, CABG who states of last several weeks he is lost taste and maybe has been eating and drinking as much. States weight loss over last several months. Basic labs and EKG were completed here. Confirmed renal dysfunction though slightly better than yesterday's outpatient level higher than his baseline. Also noted to have an elevated troponin. Again EKG without significant findings but wonder if this could be related to his renal dysfunction. Given some fluid hydration here. Given aspirin. Given these findings discussed with the patient and the hospitalist admission for further evaluation here in the hospital. Impression & Plan NICHOLAS (acute kidney injury), Elevated troponin, Weakness Discharge Plan Visit Data *Final* Discharge Date/Time: 04/07/19 14:50 Chief Complaint: Abnormal Labs/Diagnostic Testing Stated Complaint: ABNORMAL LAB ED Provider: Lukasz Washington Discharge Problem: NICHOLAS (acute kidney injury), Elevated troponin, Weakness Patient Disposition: Admitted As Inpatient Discharge Instructions Interventions: ED Discharge Assessment Last Done: 04/07/19 14:50 The razaibmaris's documentation has been prepared under my direction and personally reviewed by me in its entirety. I confirm that the note above accurately reflects all work, treatment, procedures, and medical decision making performed by me.
[2019-04-07] MEDS: PANTOprazole 40 MG TAB PO SCH (20:43)
[2019-04-07] MEDS: carvediloL 25 MG TAB PO SCH (20:43)
[2019-04-07] MEDS: ESCITALOPRAM OXALATE 10 MG TAB PO SCH (20:43)
[2019-04-07] MEDS: cloNIDine HCL 0.1 MG TAB PO SCH (20:43)
[2019-04-07] MEDS: TAMSULOSIN HCL 0.4 MG CAP PO SCH (20:43)
[2019-04-07] MEDS: FOLIC ACID 1 MG TAB PO SCH (20:43)
[2019-04-07] MEDS ORDERED: HEPARIN SOD 5,000 UNIT/0.5 ML VIAL SQ SCH (22:00)
[2019-04-07 22:41] LABS: Appearance Urine Clear (Clear); Bacteria Urine Automated 2+ (Negative); Bilirubin Urine Negative (Negative); Blood Urine 3+ (Negative); Cast Urine Automated 0 /lpf (0-5); Color Urine Yellow; Glucose Urine UA Negative (Negative); Ketones Urine Negative (Negative); Leukocyte Esterase Urine Trace (Negative); Nitrite Urine Negative (Negative); Protein Urine Trace (Negative); RBC Urine Automated >30 /hpf (0-4); Specific Gravity Urine 1.009 (1.000-1.030); Urobilinogen Urine Negative (Negative)
[2019-04-07 22:56] LABS: Creatinine Urine Random 16.7 mg/dl; Protein Creatinine Ratio Urine 1.7 (0-0.2); Total Protein Urine Random 27.8 mg/dl (0-11.9)
[2019-04-08] MEDS: SODIUM CHLORIDE 0.9% 1000ML 1,000 ML IV SCH (01:05)
[2019-04-08] MEDS: LEVOTHYROXINE SODIUM 100 MCG TABLET PO SCH (04:42)
[2019-04-08 07:00] LABS: Basophils # (auto) 0.03 K/uL (0-0.2); Basophils % (auto) 0.8 %; Eosinophils # (auto) 0.02 K/uL (0-0.5); Eosinophils % (auto) 0.5 %; Hematocrit (blood only) 24.7 % (42-52); Hemoglobin 8.5 g/dL (14.0-18.0); Immature Granulocytes # (auto) 0.04 K/uL (0.00-0.02); Lymphocytes # (auto) 0.97 K/uL (1.2-3.4); Lymphocytes % (auto) 24.4 %; Mean Corpuscular Hemoglobin 31.3 pg (25-34); Mean Corpuscular Hgb Conc 34.4 g/dL (32-36); Mean Corpuscular Volume 90.8 fL (80-100); Mean Platelet Volume 9.1 fL (7.4-10.4); Monocytes # (auto) 0.63 K/uL (0.11-0.59); Monocytes % (auto) 15.9 %; Neutrophils # (auto) 2.28 K/uL (1.4-6.5); Neutrophils % (auto) 57.4 %; Platelet Count 110 K/uL (130-400); RDW Coefficient of Variation 13.6 % (11.5-14.5); RDW Standard Deviation 45.1 fL (36.4-46.3); Red Blood Count 2.72 M/uL (4.7-6.1); White Blood Count 3.97 K/uL (4.8-10.8)
--- NOTE | 2019-04-08 07:11 | Ultrasound Report ---
ULTRASOUND KIDNEYS AND BLADDER CLINICAL HISTORY: Acute renal insufficiency. COMPARISON STUDY: No priors. TECHNIQUE: Real-time, grayscale, and color flow sonography of the kidneys and bladder is performed. I mages are reviewed in the transverse and longitudinal planes. FINDINGS: Kidneys: The kidneys Mr. Mild cortical atrophy. The right kidney measures 8.9 cm in length and the le ft kidney measures 10.6 cm in length. There is no hydronephrosis. No shadowing renal calculi are iden tified. There is no sonographic evidence of contour deforming renal mass lesion. No perinephric fluid is identified. Bladder: The bladder wall is thickened and trabeculated indicating chronic outlet obstruction. Bilate ral ureteral jets were seen. IMPRESSION: 1. The kidneys demonstrate mild cortical atrophy and are without hydronephrosis. 2. The bladder wall is thickened and trabeculated indicating chronic outlet obstruction. ACT 112: Negative or not required by law. Electronically signed by: Norman Ahumada M.D. 04/08/2019 7:09 AM
--- NOTE | 2019-04-08 07:32 | Ultrasound Report ---
US duplex renal artery CLINICAL HISTORY: hx of renal artery stenosis s/p stent COMPARISON STUDY: None. FINDINGS: Bilateral renal veins are patent. Resistive indices within the right renal arcuate arteries are at the upper limits of normal measuring 0.75. Normal resistive indices within the left renal arc uate arteries measuring less than 0.7. Peak systolic velocity within the left renal artery is 63 cm/s . There appear to be 2 right renal arteries. There is an elevated peak systolic velocity within one o f the distal right renal arteries measuring 276 cm/s. The additional right renal artery demonstrates normal peak systolic velocities. IMPRESSION: 1. There are 2 right renal arteries, one of which demonstrates an elevated peak systolic velocity dis tally consistent with an area of stenosis. 2. No evidence for left renal artery stenosis. ACT 112: Negative or not required by law. Electronically signed by: Ron Main M.D. 04/08/2019 7:31 AM
[2019-04-08 07:38] LABS: BUN Creatinine Ratio 8.4 (10-20); Calcium 7.9 mg/dl (8.5-10.1); Creatinine Clr Calc Pharmacy 28.2 ml/min; Est GFR (African American) 34.8; Magnesium 2.1 mg/dl (1.8-2.4); Potassium 3.1 mmol/L (3.5-5.1)
--- NOTE | 2019-04-08 07:52 | Gastrointestinal Consultation ---
Date of Consultation April 08, 2019 Assessment & Plan (1) Taste sense altered: Would consider chronic sinusitis causing increased nasal mucous and post nasal drip. Kidney disease can cause some decreased appetite as well. Also considered is esophageal candidiasis, but no evidence of candidiasis on inspection of his oral cavity. Present on Admission?: Yes (2) Dysphagia as late effect of cerebrovascular accident (CVA): His dysphagia is chronic and seems unchanged. In the past, he has had evidence of oral pharyngeal dysphagia on imaging and has worked with [facility] etc). Though EGD has given him perceived improvement with empiric dilation, he did not have abnormality on the EGD completed 7 months ago and improvement with empiric dilation seems to be very temporary. Would defer EGD and recommend continued f/u with speech therapy. Present on Admission?: Yes Supervising Physician Co-Signing Physician Notes I have personally seen and examined the patient with NICHOLAS Cuenca. Her note reflects my exam and findings. I agree with her impression and plan. A repeat EGD would not add to this patient's care and would put him at risk given nature of invasive testing and anesthesia needed. Dillan Mobley M.D. History of Present Illness Reason for Consultation: dysphagia, wt loss Requesting Physician: Dr. Ho Attending Physician: Kera Ho MD History of Present Illness Mr. Gustavo Gonzales is a 78 [address] old patient of Dr. Agee with a hx of CVA x 3, most recently in 2016 with residual dysphagia and right sided weakness. He is a who receives care in the [facility]. Additional hx of A-fib on ASA/Plavix, CAD S/P CBG x 2, CHF, PVD, HTN, CKD-3, BPH, Ulcerative colitis on sulfasalazine, who was brought to the ED on 04/07/19 for poor appetite, poor po intake and lethargy. He was admitted for acute on chronic kidney failure: Cr 2.9->2.08. Troponins are elevated. CXR w/o evidence of acute changes. GI is consulted for dysphagia. He has been evaluated by our group for this issue on prior occasions. He has a hx of having undergone Bilroth I partial gastrectomy in the 1979's. In 2008, post CVA, a PEG was placed and eventually removed when he regained swallowing function. In 2016, he underwent EGD for dysphagia with findings of sharyn esophagitis. In July 2017, he underwent EGD for dysphagia again with sharyn. Since that time, he underwent EGD for dysphagia on three occasions: 10/2017, 12/2017 and 08/2018 with no esophageal abnormalities. Each time, he was empirically dilated. Symptoms were thought to be secondary to oral pharyngeal dysphagia related to prior CVAs. This seems to be confirmed by a review of two past barium swallows (03/2008 and 08/2018) both of which mention some aspiration. The pt is awake, alert, oriented. He tells me that he has lost about 10 lbs in 3 weeks. He says that "food doesn't taste good." For a few months, he has had sinus pressure, frequent thick nasal mucous with nose blowing and feel post nasal drip. Regarding swallowing, he sometimes, "brings back up," pills and dry foods just after swallowing, but this has been unchanged for years. He recalls having his "throat stretched," (likely esophageal dilation), with improvement in this swallowing symptoms for a few months afterwards. Allergies Allergy/AdvReac Type Severity Reaction Status Date / Time amlodipine AdvReac Intermediate lower leg Verified 09/02/18 08:00 edema pseudoephedrine AdvReac Mild INTOLERANCE-URINARY Verified 09/02/18 08:00 RETENTION Home Medications Home Medications Medication Instructions Recorded Confirmed Type amiodarone 200 mg PO QAM 12/17/17 04/07/19 History aspirin [Aspir-81] 81 mg PO QAM 12/17/17 04/07/19 History cholecalciferol (vitamin D3) 1,000 unit PO QAM 12/17/17 04/07/19 History [Vitamin D3] clopidogrel [Plavix] 75 mg PO QAM 12/17/17 04/07/19 History cyanocobalamin (vitamin B-12) 1,000 mcg IM MONTHLY 12/17/17 04/07/19 History docusate sodium [Colace] 100 mg PO BID PRN 12/17/17 04/07/19 History escitalopram oxalate [Lexapro] 10 mg PO QPM 12/17/17 04/07/19 History fluticasone propionate [Flonase 2 spray INTRANASAL BID PRN 12/17/17 04/07/19 History Allergy Relief] folic acid 1 mg PO QPM 12/17/17 04/07/19 History furosemide [Lasix] 20 - 40 mg PO BID 12/17/17 04/07/19 History guaifenesin 1 dose PO QDL 12/17/17 04/07/19 History hydralazine 25 mg PO TID 12/17/17 04/07/19 History loratadine [Claritin] 10 mg PO DAILY PRN 12/17/17 04/07/19 History losartan 100 mg PO QAM 12/17/17 04/07/19 History melatonin 3 mg PO HS PRN 12/17/17 04/07/19 History multivitamin 1 tab PO QAM 12/17/17 04/07/19 History pantoprazole 40 mg PO BID 12/17/17 04/07/19 History polyethylene glycol 3350 [Miralax] 1 dose PO UD PRN 12/17/17 04/07/19 History potassium chloride [Klor-Con M10] 10 meq PO QID 12/17/17 04/07/19 History pravastatin 20 mg PO QAM 12/17/17 04/07/19 History sulfasalazine 500 mg PO QID 12/17/17 04/07/19 History tamsulosin 0.4 mg PO QPM 12/17/17 04/07/19 History trazodone 50 mg PO HS PRN 12/17/17 04/07/19 History levothyroxine 100 mcg PO DAILYBB 08/24/18 04/07/19 History acetaminophen [Tylenol Extra 500 mg PO Q6H PRN 04/07/19 04/07/19 History Strength] azelastine 1 spray INTRANASAL DAILY 04/07/19 04/07/19 History carvedilol 25 mg PO BID 04/07/19 04/07/19 History clonidine HCl 0.2 mg PO BID 04/07/19 04/07/19 History finasteride 5 mg PO DAILY 04/07/19 04/07/19 History Patient History Medical History Anxiety Atrial fibrillation DX'D 2017-ON THINNER Chronic back pain Coronary artery disease Depression Former smoker History of colitis History of palpitations Hypothyroidism On anticoagulant therapy Osteoarthritis Renal artery stenosis, [place] SOB (shortness of breath) on exertion Stroke X 3-LAST ONE 07/2015 R SIDED [id number] DR AMBRIZ PRDominic ONLY DIFFICULTY SWALLOWING Surgical History History of back surgery X 2 History of colonoscopy BENIGN POLYPS History of coronary artery bypass graft 3 VESSELS [place] [facility] [place] History of esophagogastroduodenoscopy (EGD) History of renal stent LEFT X 5 STENTS-F/U DR VALLE History of renal stent History of repair of rotator cuff RIGHT Hx of foot surgery R/L RKERTOEMILY Hx of resection of stomach PARTIAL BLEEDING ULCER Family History Mother Myocardial infarction Sister , 39 Cerebral aneurysm Sister Myocardial infarction, Onset Age: 40 Social History Preferred Language: Burkinan Communication Ability: Effective 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 Denies fevers. Eyes: "eyes hurt...are dry," for months. No recent vision changes Resp: No SOB, no cough Cardio: No palpitations/irregular beats, no chest pain, no edema GI: See HPI : Denies pain on urination Skin: No jaundice, itching, no new lesions or new rashes Physical Exam Constitutional: WD/WN, vitals as above + ill appearing (chronically) and + thin Eyes: PERRL, conjunctivae normal, anicteric sclerae ENMT: external ear and nose normal, oropharynx normal Neck: trachea midline, no thyromegaly Respiratory: normal respiratory effort Auscultation: + crackles (few at each base) and + wheezes (mild scattered) Cardiovascular: RRR, no murmur, no edema Gastrointestinal (Abdomen): normal bowel sounds, soft, nontender, no hepatosplenomegaly Skin: no rashes, warm and dry Neurologic: PERRL, EOMI, accommodation nl, no face palsy, no dysarthria Right upper ext weakness Psychiatric: A+Ox3, euthymic affect Lymphatic: no cervical or axillary lymphadenopathy Results & Data Vital Signs (Past 12 Hours) Vital Signs Temp Pulse Pulse Resp BP Pulse Ox 04/08/19 07:19 76 04/08/19 04:44 37.1 C 78 18 102/53 L 94 04/07/19 23:13 80 04/07/19 23:04 36.5 C 82 17 106/62 95
[2019-04-08] MEDS: PRAVASTATIN SOD 20 MG TAB PO SCH (08:09)
[2019-04-08] MEDS: MULTIVITAMIN TAB PO SCH (08:09)
[2019-04-08] MEDS: FINASTERIDE 5 MG TAB PO SCH (08:09)
[2019-04-08] MEDS: ASPIRIN 81 MG ECTAB PO SCH (08:09)
[2019-04-08] MEDS: PANTOprazole 40 MG TAB PO SCH ×2 (08:09→20:26)
[2019-04-08] MEDS: CLOPIDOGREL BISULFATE 75 MG TAB PO SCH (08:09)
[2019-04-08] MEDS: CHOLECALCIFEROL 1,000 UNITS 25 MCG TAB PO SCH (08:09)
[2019-04-08] MEDS: sulfaSALAzine 500 MG TABLET PO SCH ×4 (08:10→20:25)
[2019-04-08] MEDS: carvediloL 25 MG TAB PO SCH ×2 (08:10→20:30)
[2019-04-08] MEDS: AMIODARONE 200 MG TAB PO SCH (08:10)
[2019-04-08] MEDS: cloNIDine HCL 0.1 MG TAB PO SCH ×2 (08:10→20:29)
[2019-04-08] MEDS: HEPARIN SOD 5,000 UNIT/0.5 ML VIAL SQ SCH ×2 (08:11→20:26)
[2019-04-08] MEDS ORDERED: POTASSIUM CHLORIDE 20 MEQ TABCR PO STA (08:24)
--- NOTE | 2019-04-08 08:32 | Nephrology Consultation ---
Date of Consultation April 08, 2019 Assessment & Plan (1) Acute worsening of stage 3 chronic kidney disease: Improving prerenal NICHOLAS on CKD 3. His baseline creatinine in 2019 had been 1.3-1.5. had NICHOLAS early January attributed to urinary retention/obstruction w/ peak creatinine 3.6 and complete resolution. Noted on April 06 as outpatient to have creatinine 3.0, with presenting creatinine April 07 2.6. Improved to 2.1 today w/ IVF. 1.7 g proteinuria on presentation; contaminated urine specimen. bladder scan w/o retention in ER; >1L uop. GI consult pending for dysphagia - appears likely no EGD indicated and that dysphagia at baseline/chronic. he has lost 20 lb since January d/c >> may have role in NICHOLAS -f/u on final GI recs, speech recs >> low threshold for calorie count >> ? if role of dysphagia in prerenal NICHOLAS -f/u urine culture -cont to avoid nephrotoxins -changed NS to normosol same rate d/t hyperchloremia/ hypokalemia -will need to arrange OP CKD f/u Present on Admission?: Yes (2) Renal artery stenosis, [place]: s/p 2017 repair w/ complications; duplicate right renal artery dominant artery patent; stable at baseline Present on Admission?: Yes (3) Anemia: Present on Admission?: Yes (4) Hypokalemia: Gave 60 mEq p.o. x1 now -change to K-rich IVF Ordered repeat bASIC metabolic panel 1400 May need further supplementation Present on Admission?: No History of Present Illness Reason for Consultation: NICHOLAS Requesting Physician: Dr Ho Attending Physician: Kera Ho MD History of Present Illness 78-year-old male whom I am asked to evaluate for acute kidney injury after he was admitted yesterday for recurrent NICHOLAS and generalized weakness. Past medical history includes coronary artery disease status post three-vessel CABG, peripheral vascular disease, renal artery stenosis status post multiple stents 2016 c/b R renal artery rupture w/ dominant R renal artery patent post procedure, atrial fibrillation, ulcerative colitis on sulfasalazine, moderate COPD, multiple past strokes most recently 2015 and w/ subsequent R hemiparesis and chronic ambulatory dysfunction/w-c dependence. Also admitted to [facility] February 03-2018 for acute kidney injury from urine retention; peak creatinine 3.6; d/c creatinine per report is 1.2. his baseline creatinine in 2019 is 1.4-1.5. Noted on outpatient testing late last month to have a creatinine of 2.7, 3.0 on recheck on April 06. Creat was 2.6 on presentation here last evening; renal imaging obtained and started on IVF. GI evaluating pt. 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 Allergies Allergy/AdvReac Type Severity Reaction Status Date / Time amlodipine AdvReac Intermediate lower leg Verified 09/02/18 08:00 edema pseudoephedrine AdvReac Mild INTOLERANCE-URINARY Verified 09/02/18 08:00 RETENTION Home Medications Home Medications Medication Instructions Recorded Confirmed Type amiodarone 200 mg PO QAM 12/17/17 04/07/19 History aspirin [Aspir-81] 81 mg PO QAM 12/17/17 04/07/19 History cholecalciferol (vitamin D3) 1,000 unit PO QAM 12/17/17 04/07/19 History [Vitamin D3] clopidogrel [Plavix] 75 mg PO QAM 12/17/17 04/07/19 History cyanocobalamin (vitamin B-12) 1,000 mcg IM MONTHLY 12/17/17 04/07/19 History docusate sodium [Colace] 100 mg PO BID PRN 12/17/17 04/07/19 History escitalopram oxalate [Lexapro] 10 mg PO QPM 12/17/17 04/07/19 History fluticasone propionate [Flonase 2 spray INTRANASAL BID PRN 12/17/17 04/07/19 History Allergy Relief] folic acid 1 mg PO QPM 12/17/17 04/07/19 History furosemide [Lasix] 20 - 40 mg PO BID 12/17/17 04/07/19 History guaifenesin 1 dose PO QDL 12/17/17 04/07/19 History hydralazine 25 mg PO TID 12/17/17 04/07/19 History loratadine [Claritin] 10 mg PO DAILY PRN 12/17/17 04/07/19 History losartan 100 mg PO QAM 12/17/17 04/07/19 History melatonin 3 mg PO HS PRN 12/17/17 04/07/19 History multivitamin 1 tab PO QAM 12/17/17 04/07/19 History pantoprazole 40 mg PO BID 12/17/17 04/07/19 History polyethylene glycol 3350 [Miralax] 1 dose PO UD PRN 12/17/17 04/07/19 History potassium chloride [Klor-Con M10] 10 meq PO QID 12/17/17 04/07/19 History pravastatin 20 mg PO QAM 12/17/17 04/07/19 History sulfasalazine 500 mg PO QID 12/17/17 04/07/19 History tamsulosin 0.4 mg PO QPM 12/17/17 04/07/19 History trazodone 50 mg PO HS PRN 12/17/17 04/07/19 History levothyroxine 100 mcg PO DAILYBB 08/24/18 04/07/19 History acetaminophen [Tylenol Extra 500 mg PO Q6H PRN 04/07/19 04/07/19 History Strength] azelastine 1 spray INTRANASAL DAILY 04/07/19 04/07/19 History carvedilol 25 mg PO BID 04/07/19 04/07/19 History clonidine HCl 0.2 mg PO BID 04/07/19 04/07/19 History finasteride 5 mg PO DAILY 04/07/19 04/07/19 History Patient History Medical History Anxiety Atrial fibrillation DX'D 2017-ON THINNER Chronic back pain Coronary artery disease Depression Former smoker History of colitis History of palpitations Hypothyroidism On anticoagulant therapy Osteoarthritis Renal artery stenosis, [place] SOB (shortness of breath) on exertion Stroke X 3-LAST ONE 07/2015 R SIDED [id number] DR AMBRIZ PRN ONLY DIFFICULTY SWALLOWING Surgical History History of back surgery X 2 History of colonoscopy BENIGN POLYPS History of coronary artery bypass graft [address] 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 Beliefs That Will Affect Care: None Current Living Situation: Family Current Living Situation Comment: lives with grandson Other Information That Helps Us Care for You: No Feels Safe at Home: Yes Safety Concerns: Feels Safe At This Time Smoking Status: Former smoker Tobacco Type: cigarettes ; Do You Dip or Chew Tobacco: No ; Smoking End Date: 1978 ; Second Hand Exposure: Yes () ; Tobacco Cessation Education Requested by Patient: No Hx Alcohol Use: No Hx Substance Use: No Review of Systems Review of Systems: All systems reviewed & are unremarkable except as noted in HPI & below Constitutional: + fatigue, + weakness and + weight loss (reports 13 lb wt loss in 3 wks); no fever and no anorexia Eyes: no worsening vision Ear, Nose, Mouth, Throat: + dysphagia Respiratory: no cough Cardiovascular: no palpitations and no edema Gastrointestinal: + dysphagia; no abdominal pain and no diarrhea/loose stools Genitourinary: no dysuria, no difficulty urinating and no post-void dribbling Neurologic: + generalized weakness; no gait abnormality Hematologic / Lymphatic: no easy bleeding Physical Exam Constitutional: well developed, well nourished and + ill appearing (appears chronically ill); no acute distress (sitting in bed on RA) Eyes: EOM intact bilaterally ENMT: Ears: no external ear abnormality Nose: no external nose abnormality Mouth: + dry oral mucous membranes Neck: no nuchal rigidity Respiratory: normal respiratory effort Auscultation: lungs clear to auscultation bilaterally and + diminished lung sounds Cardiovascular: RRR, no murmur, no edema Heart Sounds: + murmur Gastrointestinal (Abdomen): Inspection/Auscultation: normal bowel sounds Percussion/Palpation: abdomen soft; abdomen nontender Musculoskeletal: Extremities: strength 5/5 throughout Skin: no rashes, warm and dry Neurologic: melo, fluent speech, no tremor Psychiatric: A+Ox3, euthymic affect Genitourinary: no montoya Results & Data Vital Signs (Past 12 Hours) Vital Signs Temp Pulse Pulse Resp BP Pulse Ox 04/08/19 07:53 36.7 C 74 18 116/69 95 04/08/19 07:19 76 04/08/19 04:44 37.1 C 78 18 102/53 L 94 04/07/19 23:13 80 04/07/19 23:04 36.5 C 82 17 106/62 95 Laboratory Results 04/08/19 06:32 04/08/19 06:32 Diagnostic Findings Renal vascular duplex 1. There are 2 right renal arteries, one of which demonstrates an elevated peak systolic velocity distally consistent with an area of stenosis. 2. No evidence for left renal artery stenosis. Renal ultrasound 1. The kidneys demonstrate mild cortical atrophy and are without hydronephrosis. 2. The bladder wall is thickened and trabeculated indicating chronic outlet obstruction. cxr 1. Minimal right basilar opacities likely atelectasis or scarring. This is unchanged. No convincing evidence of acute cardiopulmonary disease.
[2019-04-08] MEDS ORDERED: NORMOSOL-R 1,000 ML IV SCH (11:30)
[2019-04-08] MEDS: NORMOSOL-R 1,000 ML IV SCH ×2 (11:48→21:21)
--- NOTE | 2019-04-08 13:46 | Electrocardiogram Report ---
Test Reason : Blood Pressure : / mmHG Vent. Rate : 075 BPM Atrial Rate : 075 BPM P-R Int : 208 ms QRS Dur : 094 ms QT Int : 442 ms P-R-T Axes : 058 067 064 degrees QTc Int : 493 ms Normal sinus rhythm with 1st degree A-V block Low voltage QRS Prolonged QT Abnormal ECG When compared with ECG of 07-APR-2019 11:38, No significant change was found Confirmed by Fabrice Tena ([id number]) on 04/08/2019 1:46:25 PM Referred By: Clari Koehler Confirmed By:Fabrice Tena
--- NOTE | 2019-04-08 14:12 | Electrocardiogram Report ---
Test Reason : Blood Pressure : / mmHG Vent. Rate : 075 BPM Atrial Rate : 075 BPM P-R Int : 204 ms QRS Dur : 106 ms QT Int : 444 ms P-R-T Axes : 069 039 055 degrees QTc Int : 495 ms Normal sinus rhythm Low voltage QRS Prolonged QT Abnormal ECG When compared with ECG of 07-APR-2019 18:40, (unconfirmed) No significant change was found Confirmed by Fabrice Tena ([id number]) on 04/08/2019 2:11:56 PM Referred By: Clari Koehler Confirmed By:Fabrice Tena
[2019-04-08 14:41] LABS: BUN Creatinine Ratio 9.5 (10-20); Calcium 7.8 mg/dl (8.5-10.1); Creatinine Clr Calc Pharmacy 32.1 ml/min; Est GFR (African American) 40.6; Est GFR (Non-African American) 35.1; Potassium 3.9 mmol/L (3.5-5.1)
--- NOTE | 2019-04-08 17:26 | Hospitalist Progress Note ---
Date of Service April 08, 2019 Assessment & Plan (1) Acute worsening of stage 3 chronic kidney disease: Presented with acute renal failure, baseline creatinine in 2019 had been 1.3-1.5 Admitted with elevated creatinine more than 3, Possible prerenal component secondary to dehydration, poor p.o. intake Appreciate input from nephrology Dr. Beth, patient is continued with IV fluids, creatinine gradually improved 1.8 today No urinary retention noted on bladder scan Avoid NSAIDs and contrast study Follow daily BMP History of renal artery stenosis, Status post repair without complication in 2017, Renal ultrasound shows there are 2 right renal arteries, 1 of which demonstrated an elevated peak systolic velocity distally consistent with an area of stenosis. Urine tract infection: Urine culture shows E. coli, Added on Rocephin (2) Elevated troponin: No complaint of chest pain on no discomfort, Mild elevation of troponin could be secondary to acute renal failure, poor clearance Monitor serial labs (3) Weakness: Generalized weakness secondary to infection: UTI, acute renal failure dehydration Correction of acute renal failure as outlined above, started on IV antibiotics for UTI Patient lives at home with grandson, at baseline wheelchair-bound, able to do transfer PT OT consulted (4) CAD (coronary artery disease): History of CABG x3 in 2007 Chest pain, no angina symptoms no shortness of breath or dyspnea on exertion Initial troponin 0.125, possible secondary to acute renal failure no ischemic EKG changes now down trending to 0.079-0.068 Continue ASA, Plavix, statin, Coreg Started on hold for acute renal failure (5) History of CVA (cerebrovascular accident): History multiple CVAs in past, 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, dysphagia and wheelchair-bound On ASA, Plavix, statin aspiration precautions, chronic dysphagia required EGD dilatation in past GI eval appreciated , does not believe repeated EGD dilatation will provide 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 recommends continued speech therapy and diet modification : soft /slippery diet (6) Chronic diastolic CHF (congestive heart failure): Last echocardiogram 02/08/2019 LVEF 55 to 60% Euvolemic Continue Coreg, but hold losartan and Lasix given NICHOLAS Daily weights, strict I's and O's (7) HTN (hypertension): blood pressure controlled on multidrug regimen continue coreg, clonidine, hydralazine with parameters hold losartan and lasix given NICHOLAS (8) Dyslipidemia: continue statin (9) History of atrial fibrillation: currently rate and rhythm controlled PAF on amiodarone, coreg not on oral anticoagulation, high fall and bleeding risk (10) Anemia: H/H stable at 10.1 and 29.4 Monitor CBC B12 injection monthly Normocytic normochromic, likely in setting of chronic renal disease (11) Peripheral vascular disease: continue asa, plavix, statin (12) Ulcerative colitis: continue sulfasalazine (13) DVT prophylaxis: SQ Heparin CODE STATUS : FULL CODE Disposition:lives at home with family at baseline wheel chair bound will need PT/OT eval Follow up: PCP Dr. Agee upon discharge Subjective Complains of being very weak and tired, No cough, no discomfort Appetite is fair Patient reports of having difficulty swallowing dry food, meat-specially chicken Does not have any trouble with mesh potatoes with gravy, soft food No overt aspiration noted today Has been afebrile with stable vitals Review of Systems Review of Systems: All systems reviewed & are unremarkable except as noted in HPI & below Constitutional: + fatigue and + weakness; no fever Respiratory: no cough Physical Exam Constitutional: WD/WN, vitals as above + ill appearing; no acute distress Eyes: PERRL, conjunctivae normal, anicteric sclerae ENMT: external ear and nose normal, oropharynx normal Neck: trachea midline, no thyromegaly Respiratory: normal respiratory effort and + cough; no respiratory distress Auscultation: no crackles and no rales Cardiovascular: RRR, no murmur, no edema Gastrointestinal (Abdomen): normal bowel sounds, soft, nontender, no hepatosplenomegaly Musculoskeletal: no cyanosis or clubbing, extremities motor strength 5/5 Skin: no rashes, warm and dry Neurologic: no focal motor deficits Speech / Cognition: + abnormal speech (Baseline dysarthria from a prior stroke) Psychiatric: A+Ox3, euthymic affect Results & Data ([facility]) Vital Signs (Past 12 Hours) Vital Signs Temp Pulse Pulse Resp BP BP Pulse Ox 04/08/19 16:31 96 04/08/19 16:03 73 04/08/19 15:33 36.6 C 04/08/19 14:21 73 102/58 L 04/08/19 10:48 36.4 C L 76 19 94/51 L 95 04/08/19 07:53 36.7 C 74 18 116/69 95 04/08/19 07:19 76
[2019-04-08] MEDS: FOLIC ACID 1 MG TAB PO SCH (20:26)
[2019-04-08] MEDS: TAMSULOSIN HCL 0.4 MG CAP PO SCH (20:27)
[2019-04-08] MEDS: ESCITALOPRAM OXALATE 10 MG TAB PO SCH (20:27)
[2019-04-09] MEDS: LEVOTHYROXINE SODIUM 100 MCG TABLET PO SCH (05:25)
[2019-04-09] MEDS: carvediloL 25 MG TAB PO SCH ×2 (09:12→20:30)
[2019-04-09] MEDS: CLOPIDOGREL BISULFATE 75 MG TAB PO SCH (09:13)
[2019-04-09] MEDS: CHOLECALCIFEROL 1,000 UNITS 25 MCG TAB PO SCH (09:13)
[2019-04-09] MEDS: cloNIDine HCL 0.1 MG TAB PO SCH ×2 (09:13→20:30)
[2019-04-09] MEDS: MULTIVITAMIN TAB PO SCH (09:13)
[2019-04-09] MEDS: PRAVASTATIN SOD 20 MG TAB PO SCH (09:13)
[2019-04-09] MEDS: PANTOprazole 40 MG TAB PO SCH ×2 (09:14→20:29)
[2019-04-09] MEDS: FINASTERIDE 5 MG TAB PO SCH (09:14)
[2019-04-09] MEDS: AMIODARONE 200 MG TAB PO SCH (09:14)
[2019-04-09] MEDS: sulfaSALAzine 500 MG TABLET PO SCH ×4 (09:14→20:31)
[2019-04-09] MEDS: ASPIRIN 81 MG ECTAB PO SCH (09:14)
[2019-04-09] MEDS: HEPARIN SOD 5,000 UNIT/0.5 ML VIAL SQ SCH ×2 (09:15→20:34)
[2019-04-09] MEDS: NORMOSOL-R 1,000 ML IV SCH ×2 (09:18→16:45)
--- NOTE | 2019-04-09 10:34 | Nephrology Progress Note ---
Date of Service April 09, 2019 Assessment & Plan (1) Acute worsening of stage 3 chronic kidney disease: Improving prerenal NICHOLAS on CKD 3. His baseline creatinine in 2019 had been 1.3-1.5. had NICHOLAS early January attributed to urinary retention/obstruction w/ peak creatinine 3.6 and complete resolution. Noted on April 06 as outpatient to have creatinine 3.0, with presenting creatinine April 07 2.6. Improved to 1.8 today w/ IVF. 1.7 g proteinuria on presentation; contaminated urine specimen. bladder scan w/o retention in ER; >1L uop. GI consult pending for dysphagia - appears likely no EGD indicated and that dysphagia at baseline/chronic. he has lost 20 lb since January d/c >> may have role in NICHOLAS -f/u on speech recs >> low threshold for calorie count >> ? if role of dysphagia in prerenal NICHOLAS -f/u urine culture >> + for E coli -cont to avoid nephrotoxins -cont normosol same rate w/ better hyperchloremia, hypoK -will need to arrange OP CKD f/u in [place] w/ me or PA at d/c (2) Renal artery stenosis, [place]: s/p 2017 repair w/ complications; duplicate right renal artery dominant artery patent; stable at baseline (3) Anemia: (4) Hypokalemia: improved on K rich fluids daily bmp for now needs no further supplementation Subjective no complaints this am on rounds at 745. ate full breakfast, no sob, no edema, no voiding c/o. Review of Systems Review of Systems: All systems reviewed & are unremarkable except as noted in HPI & below Physical Exam Constitutional: well developed, well nourished and + ill appearing (appears chronically ill); no acute distress (sitting in bed on RA) Eyes: EOM intact bilaterally ENMT: Ears: no external ear abnormality Nose: no external nose abnormality Mouth: + dry oral mucous membranes Neck: no nuchal rigidity Respiratory: normal respiratory effort; no respiratory distress Auscultation: + diminished lung sounds and + crackles (bibasilar) Cardiovascular: RRR, no murmur, no edema Heart Sounds: + murmur Gastrointestinal (Abdomen): Inspection/Auscultation: normal bowel sounds Percussion/Palpation: abdomen soft; abdomen nontender Musculoskeletal: Extremities: strength 5/5 throughout Skin: no rashes, warm and dry Neurologic: melo, fluent speech, no tremor Psychiatric: A+Ox3, euthymic affect Results & Data Vital Signs (Past 12 Hours) Vital Signs Temp Pulse Pulse Resp BP BP Pulse Ox 04/09/19 07:43 70 04/09/19 07:39 36.6 C 71 18 147/73 H 93 04/09/19 04:36 36.8 C 70 18 122/57 L 93 04/08/19 23:35 36.8 C 75 18 115/66 95 Laboratory Results 04/08/19 06:32 04/08/19 13:54
--- NOTE | 2019-04-09 12:08 | Fluoroscopy Report ---
FL video swallow CLINICAL HISTORY: 78 years-old Male with r/o aspiration. Dysphasia with possible aspiration TECHNIQUE: Video fluoroscopic evaluation of swallowing was performed in the AP and lateral projection s by the speech pathology staff. The patient is fed nectar-thick and thin liquid barium, a barium coa tan wafer, and barium pudding. FLUOROSCOPY TIME: 2.4 minutes.. COMPARISON STUDY: Swallow study 03/17/2018. FINDINGS: There is mild laryngeal penetration without aspiration noted with thin liquid barium. Mild distal esophageal dysmotility. Residue noted within the vallecula and piriform sinuses. Mildly decrea sed oropharyngeal transit with solid consistency. Degenerative changes of the spine. Prior median aquilino rnotomy. IMPRESSION: 1. Penetration without aspiration identified. 2. Please see the speech pathologist report for detailed findings and recommendations. ACT 112: Negative or not required by law. Electronically signed by: Live Valencia M.D. 04/09/2019 12:07 PM
[2019-04-09] MEDS: cefTRIAXone SODIUM 1,000 MG in DEXTROSE 5% 50 ML IV SCH (12:25)
[2019-04-09] MEDS ORDERED: DOCUSATE SODIUM 100 MG CAP PO PRN (16:41)
[2019-04-09] MEDS ORDERED: LORATADINE 10 MG TAB PO PRN (16:41)
--- NOTE | 2019-04-09 16:42 | Electrocardiogram Report ---
Test Reason : Blood Pressure : / mmHG Vent. Rate : 070 BPM Atrial Rate : 070 BPM P-R Int : 204 ms QRS Dur : 094 ms QT Int : 446 ms P-R-T Axes : 064 034 062 degrees QTc Int : 481 ms Normal sinus rhythm Low voltage QRS Prolonged QT Abnormal ECG When compared with ECG of 08-APR-2019 06:23, No significant change was found Confirmed by Fabrice Tena ([id number]) on 04/09/2019 4:41:32 PM Referred By: Clari Koehler Confirmed By:Fabrice Tena
--- NOTE | 2019-04-09 19:04 | Hospitalist Progress Note ---
Date of Service April 09, 2019 Assessment & Plan (1) Acute worsening of stage 3 chronic kidney disease: Presented with acute renal failure, baseline creatinine in 2019 had been 1.3-1.5 Admitted with elevated creatinine more than 3, Possible prerenal component secondary to dehydration, poor p.o. intake Patient diuretics Lasix and ZAKIYA kept on hold Appreciate input from nephrology Dr. Beth, patient is continued with IV fluids, creatinine gradually improved 1.8 today No urinary retention noted on bladder scan Avoid NSAIDs and contrast study Follow daily BMP History of renal artery stenosis, Status post repair without complication in 2017, Renal ultrasound shows there are 2 right renal arteries, 1 of which demonstrated an elevated peak systolic velocity distally consistent with an area of stenosis. Urine tract infection: Urine culture shows E. coli, Added on Rocephin Will adjust antibiotics once sensitivity available (2) Elevated troponin: No complaint of chest pain on no discomfort, Mild elevation of troponin could be secondary to acute renal failure, poor clearance Serial troponin level continues to decline, no evidence of ACS (3) Weakness: Reports of improved symptoms, feels like more self, improve energy, appetite fair Presented with generalized weakness secondary to infection: UTI, acute renal failure dehydration Correction of acute renal failure as outlined above, started on IV antibiotics for UTI Patient lives at home with grandson, at baseline wheelchair-bound, able to do transfer PT OT consulted (4) CAD (coronary artery disease): History of CABG x3 in 2007 Chest pain, no angina symptoms no shortness of breath or dyspnea on exertion Initial troponin 0.125, possible secondary to acute renal failure no ischemic EKG changes now down trending to 0.079-0.068 Continue ASA, Plavix, statin, Coreg Losartan on hold for acute renal failure (5) History of CVA (cerebrovascular accident): History multiple CVAs in past, 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, dysphagia and wheelchair-bound On ASA, Plavix, statin aspiration precautions, chronic dysphagia required EGD dilatation in past GI eval appreciated , does not believe repeated EGD dilatation will provide 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 recommends continued speech therapy and diet modification : soft /slippery diet (6) Chronic diastolic CHF (congestive heart failure): Last echocardiogram 02/08/2019 LVEF 55 to 60% Euvolemic Continue Coreg, but hold losartan and Lasix given NICHOLAS Daily weights, strict I's and O's (7) HTN (hypertension): blood pressure controlled on multidrug regimen continue coreg, clonidine, hydralazine hold losartan and lasix given NICHOLAS Patient diuretics will be resumed once renal function back to baseline (8) Dyslipidemia: continue statin (9) History of atrial fibrillation: currently rate and rhythm controlled PAF on amiodarone, coreg not on oral anticoagulation, high fall and bleeding risk (10) Anemia: H/H stable at 10.1 and 29.4 Monitor CBC B12 injection monthly Normocytic normochromic, likely in setting of chronic renal disease (11) Peripheral vascular disease: continue asa, plavix, statin (12) Ulcerative colitis: continue sulfasalazine Complaint of abdominal pain, no diarrhea or loose stool or blood in stool (13) DVT prophylaxis: SQ Heparin CODE STATUS : FULL CODE Disposition:lives at home with family at baseline wheel chair bound will need PT/OT eval Follow up: PCP Dr. Agee upon discharge Subjective Does not offer new complaint, no cough no shortness of breath Appetite fair, Able to tolerate diet with added gravy, soft cart No overt aspiration noted Afebrile, vitals stable Review of Systems Constitutional: + fatigue and + weakness; no fever Physical Exam Constitutional: WD/WN, vitals as above + ill appearing; no acute distress Eyes: PERRL, conjunctivae normal, anicteric sclerae ENMT: external ear and nose normal, oropharynx normal Neck: trachea midline, no thyromegaly Respiratory: normal respiratory effort and + cough; no respiratory distress Auscultation: no crackles and no rales Cardiovascular: RRR, no murmur, no edema Gastrointestinal (Abdomen): normal bowel sounds, soft, nontender, no hepatosplenomegaly Musculoskeletal: no cyanosis or clubbing, extremities motor strength 5/5 Skin: no rashes, warm and dry Neurologic: no focal motor deficits Speech / Cognition: + abnormal speech (Baseline dysarthria from a prior stroke) Psychiatric: A+Ox3, euthymic affect Results & Data ([facility]) Vital Signs (Past 12 Hours) Vital Signs Temp Pulse Pulse Resp BP BP Pulse Ox 04/09/19 15:11 36.6 C 69 20 131/68 95 04/09/19 12:56 36.6 C 71 18 94/52 L 93 04/09/19 07:43 70 04/09/19 07:39 36.6 C 71 18 147/73 H 93
[2019-04-09] MEDS: FOLIC ACID 1 MG TAB PO SCH (20:29)
[2019-04-09] MEDS: ESCITALOPRAM OXALATE 10 MG TAB PO SCH (20:29)
[2019-04-09] MEDS: TAMSULOSIN HCL 0.4 MG CAP PO SCH (20:29)
[2019-04-10] MEDS: NORMOSOL-R 1,000 ML IV SCH (02:28)
[2019-04-10] MEDS: LEVOTHYROXINE SODIUM 100 MCG TABLET PO SCH (06:10)
[2019-04-10] MEDS: MULTIVITAMIN TAB PO SCH (07:54)
[2019-04-10] MEDS: PRAVASTATIN SOD 20 MG TAB PO SCH (07:54)
[2019-04-10] MEDS: cloNIDine HCL 0.1 MG TAB PO SCH ×2 (07:54→20:56)
[2019-04-10] MEDS: CLOPIDOGREL BISULFATE 75 MG TAB PO SCH (07:54)
[2019-04-10] MEDS: PANTOprazole 40 MG TAB PO SCH ×2 (07:55→20:55)
[2019-04-10] MEDS: carvediloL 25 MG TAB PO SCH ×2 (07:55→20:57)
[2019-04-10] MEDS: AMIODARONE 200 MG TAB PO SCH (07:56)
[2019-04-10] MEDS: CHOLECALCIFEROL 1,000 UNITS 25 MCG TAB PO SCH (07:56)
[2019-04-10] MEDS: FINASTERIDE 5 MG TAB PO SCH (07:56)
[2019-04-10] MEDS: sulfaSALAzine 500 MG TABLET PO SCH ×4 (07:57→20:57)
[2019-04-10] MEDS: ASPIRIN 81 MG ECTAB PO SCH (07:57)
[2019-04-10] MEDS: HEPARIN SOD 5,000 UNIT/0.5 ML VIAL SQ SCH ×2 (07:57→20:58)
[2019-04-10] MEDS ORDERED: NON-FORMULARY MEDICATION (Azelastine 1 SPRAYS) INTNAS SCH (09:00)
[2019-04-10 11:23] LABS: BUN Creatinine Ratio 5.5 (10-20); Calcium 7.4 mg/dl (8.5-10.1); Creatinine Clr Calc Pharmacy 47.8 ml/min; Est GFR (African American) 65.7; Est GFR (Non-African American) 56.7; Potassium 3.6 mmol/L (3.5-5.1)
[2019-04-10] MEDS: cefTRIAXone SODIUM 1,000 MG in DEXTROSE 5% 50 ML IV SCH (11:37)
--- NOTE | 2019-04-10 13:43 | Hospitalist Progress Note ---
Date of Service April 10, 2019 Assessment & Plan (1) Acute worsening of stage 3 chronic kidney disease: Resolved, creatinine back to baseline 1.23 today Presented with acute renal failure, baseline creatinine in 2019 had been 1.3-1.5 Admitted with elevated creatinine more than 3, Possible prerenal component secondary to dehydration, poor p.o. intake Appreciate input from nephrology Dr. Beth, treated with IV fluids History of renal artery stenosis, Status post repair without complication in 2017, Renal ultrasound shows there are 2 right renal arteries, 1 of which demonstrated an elevated peak systolic velocity distally consistent with an area of stenosis. Urine tract infection: Urine culture shows E. coli,/pansensitive Antibiotic changed to p.o. Keflex, ciprofloxacin avoided as patient is on amiodarone to prevent QTC prolongation (2) Elevated troponin: No complaint of chest pain on no discomfort, Mild elevation of troponin could be secondary to acute renal failure, poor clearance Serial troponin level continues to decline, no evidence of ACS (3) Weakness: Reports of improved symptoms, feels like more self, improve energy, appetite fair Presented with generalized weakness secondary to infection: UTI, acute renal failure dehydration Correction of acute renal failure as outlined above, started on IV antibiotics for UTI Patient lives at home with grandson, at baseline wheelchair-bound, able to do transfer Appears to be back to his baseline functional status, Family wants patient to return home with prior support, not interested in rehab (4) CAD (coronary artery disease): History of CABG x3 in 2007 Chest pain, no angina symptoms no shortness of breath or dyspnea on exertion Initial troponin 0.125, possible secondary to acute renal failure no ischemic EKG changes now down trending to 0.079-0.068 Continue ASA, Plavix, statin, Coreg Statin resumed (5) History of CVA (cerebrovascular accident): History multiple CVAs in past, 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, dysphagia and wheelchair-bound On ASA, Plavix, statin aspiration precautions, chronic dysphagia required EGD dilatation in past GI eval appreciated , does 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 believe 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 recommends continued speech therapy and diet modification : soft /slippery diet (6) Chronic diastolic CHF (congestive heart failure): Last echocardiogram 02/08/2019 LVEF 55 to 60% Euvolemic Continue Coreg, but hold losartan and Lasix given NICHOLAS Daily weights, strict I's and O's (7) HTN (hypertension): blood pressure controlled on multidrug regimen continue coreg, clonidine, hydralazine Lasix and losartan resumed as renal function back to baseline (8) Dyslipidemia: continue statin (9) History of atrial fibrillation: currently rate and rhythm controlled PAF on amiodarone, coreg not on oral anticoagulation, high fall and bleeding risk (10) Anemia: H/H stable at 10.1 and 29.4 Monitor CBC B12 injection monthly Normocytic normochromic, likely in setting of chronic renal disease (11) Peripheral vascular disease: continue asa, plavix, statin (12) Ulcerative colitis: continue sulfasalazine Complaint of abdominal pain, no diarrhea or loose stool or blood in stool (13) DVT prophylaxis: SQ Heparin CODE STATUS : FULL CODE Disposition:lives at home with family at baseline wheel chair bound Discharge home on Friday, daughter will provide transport Follow up: PCP Dr. Agee upon discharge Subjective Sitting up on chair, feels comfortable, No aspiration noted with soft moist diet Lives with grandson, daughter present at bedside, information given for dietary modification Family would want to continue speech/swallow therapy at home not interested in rehab Physical Exam Constitutional: WD/WN, vitals as above + ill appearing; no acute distress Eyes: PERRL, conjunctivae normal, anicteric sclerae ENMT: external ear and nose normal, oropharynx normal Neck: trachea midline, no thyromegaly Respiratory: normal respiratory effort and + cough; no respiratory distress Auscultation: no crackles and no rales Cardiovascular: RRR, no murmur, no edema Gastrointestinal (Abdomen): normal bowel sounds, soft, nontender, no hep atosplenomegaly Musculoskeletal: no cyanosis or clubbing, extremities motor strength 5/5 Skin: no rashes, warm and dry Neurologic: no focal motor deficits Speech / Cognition: + abnormal speech (Baseline dysarthria from a prior stroke) Psychiatric: A+Ox3, euthymic affect Results & Data ([facility]) Vital Signs (Past 12 Hours) Vital Signs Temp Pulse Pulse Resp BP BP Pulse Ox 04/10/19 11:26 36.9 C 69 16 128/65 95 04/10/19 07:26 36.8 C 69 16 133/70 95 04/10/19 07:20 67 04/10/19 04:38 36.5 C 69 18 133/69 94
[2019-04-10] MEDS: cephALEXin 250 MG CAP PO SCH ×2 (14:00→20:58)
[2019-04-10] MEDS: FOLIC ACID 1 MG TAB PO SCH (20:56)
[2019-04-10] MEDS: TAMSULOSIN HCL 0.4 MG CAP PO SCH (20:56)
[2019-04-10] MEDS: ESCITALOPRAM OXALATE 10 MG TAB PO SCH (20:56)
[2019-04-11] MEDS: LEVOTHYROXINE SODIUM 100 MCG TABLET PO SCH (06:07)
[2019-04-11] MEDS: cephALEXin 250 MG CAP PO SCH (06:07)
[2019-04-11 07:29] LABS: BUN Creatinine Ratio 5.4 (10-20); Creatinine Clr Calc Pharmacy 48.2 ml/min; Est GFR (African American) 66.3; Est GFR (Non-African American) 57.2; Potassium 3.6 mmol/L (3.5-5.1)
[2019-04-11] MEDS: cloNIDine HCL 0.1 MG TAB PO SCH (07:50)
[2019-04-11] MEDS: PRAVASTATIN SOD 20 MG TAB PO SCH (07:51)
[2019-04-11] MEDS: carvediloL 25 MG TAB PO SCH (07:51)
[2019-04-11] MEDS: CLOPIDOGREL BISULFATE 75 MG TAB PO SCH (07:51)
[2019-04-11] MEDS: MULTIVITAMIN TAB PO SCH (07:51)
[2019-04-11] MEDS: ASPIRIN 81 MG ECTAB PO SCH (07:52)
[2019-04-11] MEDS: AMIODARONE 200 MG TAB PO SCH (07:52)
[2019-04-11] MEDS: sulfaSALAzine 500 MG TABLET PO SCH ×2 (07:53→12:11)
[2019-04-11] MEDS: CHOLECALCIFEROL 1,000 UNITS 25 MCG TAB PO SCH (07:53)
[2019-04-11] MEDS: PANTOprazole 40 MG TAB PO SCH (07:53)
[2019-04-11] MEDS: FINASTERIDE 5 MG TAB PO SCH (07:54)
[2019-04-11] MEDS: HEPARIN SOD 5,000 UNIT/0.5 ML VIAL SQ SCH (07:54)
--- NOTE | 2019-04-11 11:09 | Hospitalist Progress Note ---
Date of Service April 11, 2019 Assessment & Plan (1) Acute worsening of stage 3 chronic kidney disease: Resolved, creatinine back to baseline 1.23 ->1,22 Presented with acute renal failure, baseline creatinine in 2019 had been 1.3-1.5 Admitted with elevated creatinine more than 3, Possible prerenal component secondary to dehydration, poor p.o. intake Appreciate input from nephrology Dr. Beth, treated with IV fluids Been off IV fluids for past few days, renal function remained stable with oral intake only Patient is stable to be discharged home, information given to increase p.o. intake of fluids, avoid NSAIDs History of renal artery stenosis, Status post repair without complication in 2017, Renal ultrasound shows there are 2 right renal arteries, 1 of which demonstrated an elevated peak systolic velocity distally consistent with an area of stenosis. Urine tract infection: Urine culture shows E. coli,/pansensitive Was treated with IV Rocephin Antibiotic changed to p.o. Keflex, ciprofloxacin avoided as patient is on amiodarone to prevent QTC prolongation Will need total 7 days of treatment (2) Elevated troponin: No complaint of chest pain on no discomfort, Mild elevation of troponin could be secondary to acute renal failure, poor clearance Serial troponin level continues to decline, no evidence of ACS (3) Weakness: Reports of improved symptoms, feels like more self, improve energy, appetite fair Presented with generalized weakness secondary to infection: UTI, acute renal failure dehydration Correction of acute renal failure as outlined above, started on IV antibiotics for UTI Patient lives at home with grandson, at baseline wheelchair-bound, able to do transfer Appears to be back to his baseline functional status, Patient is stable to return to home with prior support, will need arrangement for home speech therapy (4) CAD (coronary artery disease): History of CABG x3 in 2007 Chest pain, no angina symptoms no shortness of breath or dyspnea on exertion Initial troponin 0.125, possible secondary to acute renal failure no ischemic EKG changes now down trending to 0.079-0.068 Continue ASA, Plavix, statin, Coreg ,Statin (5) History of CVA (cerebrovascular accident): History multiple CVAs in past, 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, dysphagia and wheelchair-bound On ASA, Plavix, statin aspiration precautions, chronic dysphagia required EGD dilatation in past GI eval appreciated , does not believe 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 recommends continued speech therapy and diet modification : soft /slippery diet Patient will have continued speech therapy at home, referral made to [facility] home nursing (6) Chronic diastolic CHF (congestive heart failure): Last echocardiogram 02/08/2019 LVEF 55 to 60% Euvolemic Continue Coreg, but hold losartan and Lasix given NICHOLAS (7) HTN (hypertension): blood pressure controlled on multidrug regimen continue coreg, clonidine, hydralazine Lasix and losartan resumed as renal function back to baseline (8) Dyslipidemia: continue statin (9) History of atrial fibrillation: currently rate and rhythm controlled PAF on amiodarone, coreg not on oral anticoagulation, high fall and bleeding risk (10) Anemia: H/H stable at 10.1 and 29.4 B12 injection monthly Normocytic normochromic, likely in setting of chronic renal disease (11) Peripheral vascular disease: continue asa, plavix, statin (12) Ulcerative colitis: continue sulfasalazine/stable No complaint of abdominal pain, no diarrhea or loose stool or blood in stool (13) DVT prophylaxis: SQ Heparin CODE STATUS : FULL CODE Disposition:lives at home with family at baseline wheel chair bound Is back to his baseline functional status Home health, home PT home speech therapy arranged Follow up: Stable to be discharged home, Hospital follow-up arranged with patient's family physician with Dr. Agee at [facility] Subjective Had an uneventful night, No no cough no fever chills, tolerating diet, No aspiration after modification of the diet, adding more gravy, slippery soft food No cough Energy back to baseline Review of Systems Constitutional: no fever, no fatigue and no weakness Physical Exam Constitutional: WD/WN, vitals as above + ill appearing; no acute distress Eyes: PERRL, conjunctivae normal, anicteric sclerae ENMT: external ear and nose normal, oropharynx normal Neck: trachea midline, no thyromegaly Respiratory: normal respiratory effort and + cough; no respiratory distress Auscultation: no crackles and no rales Cardiovascular: RRR, no murmur, no edema Gastrointestinal (Abdomen): normal bowel sounds, soft, nontender, no hepatosplenomegaly Musculoskeletal: no cyanosis or clubbing, extremities motor strength 5/5 Skin: no rashes, warm and dry Neurologic: no focal motor deficits Speech / Cognition: + abnormal speech (Baseline dysarthria from a prior stroke) Psychiatric: A+Ox3, euthymic affect Results & Data ([facility]) Vital Signs (Past 12 Hours) Vital Signs Temp Pulse Resp BP Pulse Ox 04/11/19 07:20 37.0 C 70 20 126/69 90
--- NOTE | 2019-04-11 11:29 | Discharge Summary ---
Date of Service April 11, 2019 Admission HPI Per Admitting Provider This is a 78-year-old male who has significant PMH of CAD with history of CABG x3 in 2007, history of multiple CVAs last in 2016 the left MCA with residual right hemiparesis, HTN, HLD, chronic diastolic heart failure, history of atrial arrhythmias, CKD stage III, SIADH, COPD, PVD, depression, history of gastric ulcer status post gastrectomy, left carotid artery stenosis 50 to 69%, hx of R renal artery stenosis s/p IR intervention with multiple stents 2017 who presents to ED at the referral of his PCP secondary to abnormal labs. Of significance patient recently hospitalized at [facility] in [place] from 02/03-02/15. 2 daughters are at bedside. Initially presented to [facility] secondary to flulike symptoms when found to be in NICHOLAS. He has baseline creatinine of 1.3- 1.4 with CKD stage III. During the hospitalization he was found to have urinary retention and bladder outlet obstruction requiring Aggarwal catheter placement. Renal function returned to baseline of 1.2. Aggarwal was removed and he was discharged to home. Since being at home he has had about approximately 20 pound weight loss, increased weakness, fatigue, increased sleeping, depressed mood, poor taste in mouth, poor appetite and JENKINS. At baseline he is wheelchair-bound secondary to right hemiparesis from prior stroke in 2016. Currently he states, "I am very hungry." But is otherwise had a poor appetite. He currently denies any fever, chills, sweats, lightheadedness, dizziness, syncope, chest pain, palpitations, cough, hemoptysis, shortness of breath at rest, vomiting, diarrhea, abdominal pain, melena, hematochezia, hematuria. He does elicit to decreased urine output but denies any increased urgency. Per daughters he takes his medications as prescribed because of his increase sleeping regimen he has not been taking them time appropriate. Approximately 3 to 4 days ago patient was seen by Clari Koehler on 04/02/19 secondary to rhinitis symptoms. At that visit daughter requested renal function checked. BUN and creatinine were 22 and 2.7. Repeat on 04/06/2019 revealed BUN 23 and creatinine 3.0. As of worsening renal function he was referred to ED for further evaluation and treatment. In ED patient remained hemodynamically stable. BUN/creatinine 20 and 2.59, H&H stable at 10.1 and 49.4, WBC 5.69, platelet 126, INR 1.3, electrolytes WNL. Troponin elevated 0.125 and TSH normal 1.387. EKG revealed normal sinus rhythm with no acute ischemic changes. Bladder scan obtained which was negative for urinary retention. Principal Diagnosis ACUTE renal failure, urinary tract infection, chronic dysphagia from prior stroke Discharge Exam Constitutional WD/WN, vitals as above + ill appearing; no acute distress Eyes PERRL, conjunctivae normal, anicteric sclerae ENMT external ear and nose normal, oropharynx normal Neck trachea midline, no thyromegaly Respiratory normal respiratory effort and + cough; no respiratory distress Auscultation: no crackles and no rales Cardiovascular RRR, no murmur, no edema Gastrointestinal (Abdomen) normal bowel sounds, soft, nontender, no hepatosplenomegaly Musculoskeletal no cyanosis or clubbing, extremities motor strength 5/5 Skin no rashes, warm and dry Neurologic no focal motor deficits Speech / Cognition: + abnormal speech (Baseline dysarthria from a prior stroke) Psychiatric A+Ox3, euthymic affect Discharge Data Allergies Allergy/AdvReac Type Severity Reaction Status Date / Time amlodipine AdvReac Intermediate lower leg Verified 09/02/18 08:00 edema pseudoephedrine AdvReac Mild INTOLERANCE-URINARY Verified 09/02/18 08:00 RETENTION Consultations 04/07/19 13:48 ED Decision to Admit Stat 04/07/19 15:01 Consult Nephrology Routine 04/07/19 15:28 Consult Case Management - Discharge Planning Routine 04/08/19 08:00 Consult Gastroenterology Routine Ordered Studies 04/07/19 15:19 US duplex renal artery Routine US renal/blad retro comp Routine 04/09/19 11:30 FL video swallow Routine Hospital Course (1) Acute worsening of stage 3 chronic kidney disease: Resolved, creatinine back to baseline 1.23 ->1,22 Presented with acute renal failure, baseline creatinine in 2019 had been 1.3-1.5 Admitted with elevated creatinine more than 3, Possible prerenal component secondary to dehydration, poor p.o. intake Appreciate input from nephrology Dr. Beth, treated with IV fluids Been off IV fluids for past few days, renal function remained stable with oral intake only Patient is stable to be discharged home, information given to increase p.o. intake of fluids, avoid NSAIDs History of renal artery stenosis, Status post repair without complication in 2017, Renal ultrasound shows there are 2 right renal arteries, 1 of which demonstrated an elevated peak systolic velocity distally consistent with an area of stenosis. Urine tract infection: Urine culture shows E. coli,/pansensitive Was treated with IV Rocephin Antibiotic changed to p.o. Keflex, ciprofloxacin avoided as patient is on amiodarone to prevent QTC prolongation Will need total 7 days of treatment (2) Elevated troponin: No complaint of chest pain on no discomfort, Mild elevation of troponin could be secondary to acute renal failure, poor clearance Serial troponin level continues to decline, no evidence of ACS (3) Weakness: Reports of improved symptoms, feels like more self, improve energy, appetite fair Presented with generalized weakness secondary to infection: UTI, acute renal failure dehydration Correction of acute renal failure as outlined above, started on IV antibiotics for UTI Patient lives at home with grandson, at baseline wheelchair-bound, able to do transfer Appears to be back to his baseline functional status, Patient is stable to return to home with prior support, will need arrangement f or home speech therapy (4) CAD (coronary artery disease): History of CABG x3 in 2007 Chest pain, no angina symptoms no shortness of breath or dyspnea on exertion Initial troponin 0.125, possible secondary to acute renal failure no ischemic EKG changes now down trending to 0.079-0.068 Continue ASA, Plavix, statin, Coreg ,Statin (5) History of CVA (cerebrovascular accident): History multiple CVAs in past, 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, dysphagia and wheelchair-bound On ASA, Plavix, statin aspiration precautions, chronic dysphagia required EGD dilatation in past GI eval appreciated , 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 recommends continued speech therapy and diet modification : soft /slippery diet Patient will have continued speech therapy at home, referral made to [facility] home nursing (6) Chronic diastolic CHF (congestive heart failure): Last echocardiogram 02/08/2019 LVEF 55 to 60% Euvolemic Continue Coreg, but hold losartan and Lasix given NICHOLAS (7) HTN (hypertension): blood pressure controlled on multidrug regimen continue coreg, clonidine, hydralazine Lasix and losartan resumed as renal function back to baseline (8) Dyslipidemia: continue statin (9) History of atrial fibrillation: currently rate and rhythm controlled PAF on amiodarone, coreg not on oral anticoagulation, high fall and bleeding risk (10) Anemia: H/H stable at 10.1 and 29.4 B12 injection monthly Normocytic normochromic, likely in setting of chronic renal disease (11) Peripheral vascular disease: continue asa, plavix, statin (12) Ulcerative colitis: continue sulfasalazine/stable No complaint of abdominal pain, no diarrhea or loose stool or blood in stool (13) DVT prophylaxis: SQ Heparin CODE STATUS : FULL CODE Disposition:lives at home with family at baseline wheel chair bound Is back to his baseline functional status Home health, home PT home speech therapy arranged Follow up: Stable to be discharged home, Hospital follow-up arranged with patient's family physician with Dr. Agee at [facility] Total Time Total Time Spent Total Time Spent (In Minutes): Approximately 35 minutes: Total Time Includes: Examination of the Patient, Discharge Planning and Medication Reconciliation Discharge Plan Discharge Items Patient Disposition: Home - Home Health Services Reason For Visit: RENAL FAILURE, ELEVATED TROPONIN Discharge Diagnosis: ACUTE renal failure, urinary tract infection, chronic dysphagia from prior stroke Activity: Resume your previous activity Non-emergency contact: Primary Care Provider Call non-emergency contact if: you have any medication questions Follow-up/Referrals: Natalie Agee MD [Primary Care Provider] - 04/15/19 11:00 am Diet: Heart Healthy Diet Texture: Mechanical soft (ground) Diet Comment: Diet: Soft/slippery diet Alternate between solid and liquid Single bites, Addtl Attending Provider Instructions: Complete antibiotic: Keflex 250 mg 1 tablet every 8 hours for 4 more days: For urine tract infection do not take high-dose aspirin, Aleve, Advil, Motrin, ibuprofen, naproxen: Avoid these [id number] pain medications which belongs to drug group of NSAIDs, will cause worsening of your kidney function You can take Tylenol as needed for pain or fever Please crush all the medication and take it with spoonful of applesauce or pudding Continue speech/swallow therapy at home Pending Studies at Discharge: No Stand-Alone Forms: My [employer], Smoking Cessation Medications and DC Order Prescriptions: New cephalexin 250 mg Capsule 250 mg PO Q8 4 Days Qty: 12 RF: 0 Continued amiodarone 200 mg Tablet 200 mg PO QAM RF: 0 aspirin [Aspir-81] 81 mg Tablet,Delayed Release (Dr/Ec) 81 mg PO QAM RF: 0 cholecalciferol (vitamin D3) [Vitamin D3] 1,000 unit Tablet 1,000 unit PO QAM RF: 0 clopidogrel [Plavix] 75 mg Tablet 75 mg PO QAM RF: 0 cyanocobalamin (vitamin B-12) 1,000 mcg/mL Kit 1,000 mcg IM MONTHLY RF: 0 docusate sodium [Colace] 100 mg Capsule 100 mg PO BID PRN (Reason: Constipation) RF: 0 folic acid 1 mg Tablet 1 mg PO QPM RF: 0 fluticasone propionate [Flonase Allergy Relief] 50 mcg/actuation [place],Suspension 2 spray INTRANASAL BID PRN (Reason: Allergy Symptoms) RF: 0 escitalopram oxalate [Lexapro] 10 mg Tablet 10 mg PO QPM RF: 0 melatonin 3 mg Tablet 3 mg PO HS PRN (Reason: Sleep) RF: 0 hydralazine 50 mg Tablet 25 mg PO TID RF: 0 furosemide [Lasix] 20 mg Tablet 20 - 40 mg PO BID RF: 0 losartan 100 mg Tablet 100 mg PO QAM RF: 0 loratadine [Claritin] 10 mg Tablet 10 mg PO DAILY PRN (Reason: Allergy Symptoms) RF: 0 guaifenesin 200 mg/5 mL Liquid 1 dose PO QDL RF: 0 multivitamin Tablet,Chewable 1 tab PO QAM RF: 0 sulfasalazine 500 mg Tablet 500 mg PO QID RF: 0 tamsulosin 0.4 mg Capsule 0.4 mg PO QPM RF: 0 pantoprazole 40 mg Tablet,Delayed Release (Dr/Ec) 40 mg PO BID RF: 0 pravastatin 20 mg Tablet 20 mg PO QAM RF: 0 polyethylene glycol 3350 [Miralax] 17 gram/dose Powder 1 dose PO UD PRN (Reason: Constipation) RF: 0 potassium chloride [Klor-Con M10] 10 mEq Tablet,Er Particles/Crystals 10 meq PO QID RF: 0 trazodone 50 mg Tablet 50 mg PO HS PRN (Reason: Anxiety) RF: 0 levothyroxine 100 mcg Tablet 100 mcg PO DAILYBB RF: 0 acetaminophen [Tylenol Extra Strength] 500 mg Tablet 500 mg PO Q6H PRN (Reason: Pain) RF: 0 azelastine 137 mcg (0.1 %) aerosol,spray 1 spray INTRANASAL DAILY RF: 0 finasteride 5 mg tablet 5 mg PO DAILY RF: 0 carvedilol 25 mg Tablet 25 mg PO BID RF: 0 clonidine HCl 0.2 mg Tablet 0.2 mg PO BID RF: 0 Discharge Orders: Discharge Order (Routine); Ordered 04/11/19 Ordered By: Kera Mccoy/Other Patient Handouts: Dysphagia Diet, Dysphagia Aspiration Admission Data Admit Date/Time: 04/07/19 14:17 Attending Provider: Kera Ho Admit Provider: Gregory Moses Primary Care Provider: Natalie Agee Other Providers: Gregory Moses ; Rosita Deluna ; Dillan Mobley
== END 2019-04-11 13:23 | disposition home health service (06) | DRG 683 ==
LOC: ED 11:13 → SUATTDRO 14:17 → 2S 14:17 → 2W 04-09 16:38

== ENCOUNTER 2019-11-10 19:28 | Inpatient (IN) ==
--- NOTE | 2019-11-10 19:45 | Emergency Department Note ---
History of Present Illness General Chief complaint: Stroke/CVA Symptoms Stated complaint: STROKE SX Source: patient and EMS Mode of arrival: EMS Limitations: no limitations History of Present Illness This patient is brought in by EMS after having strokelike symptoms. Apparently at 623 he had an episode of a aphasia right facial droop and was staring straight ahead. This lasted about 15 minutes. EMS arrived and by the time they arrived the symptoms had resolved completely. They checked the blood sugar is 172. 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 He is talking normally upon arrival and answer questions appropriately with his only complaint of feeling cold. He denies chest pain or shortness of breath no fever chills no COVID exposure no headache or fall or trauma. Home Medications Home Medications Medication Instructions Recorded Confirmed Type amiodarone 200 mg PO QAM 12/17/17 11/10/19 History aspirin [Aspir-81] 81 mg PO DAILY@1300 12/17/17 11/10/19 History clopidogrel [Plavix] 75 mg PO QAM 12/17/17 11/10/19 History folic acid 1 mg PO HS 12/17/17 11/10/19 History furosemide [Lasix] 40 mg PO DAILY 12/17/17 11/10/19 History pantoprazole 40 mg PO BID 12/17/17 11/10/19 History sulfasalazine 500 mg PO QID 12/17/17 11/10/19 History tamsulosin 0.4 mg PO QPM@1700 12/17/17 11/10/19 History levothyroxine 100 mcg PO HS 08/24/18 11/10/19 History carvedilol 25 mg PO BID17 04/07/19 11/10/19 History finasteride 5 mg PO QAM 04/07/19 11/10/19 History montelukast 10 mg PO DAILY@1700 05/14/19 11/10/19 History rosuvastatin 20 mg PO QAM 05/14/19 11/10/19 History acetaminophen 500 mg capsule 500 mg PO Q6H PRN 09/22/19 11/10/19 History escitalopram oxalate 10 mg PO .DAILY @ 1300 11/10/19 11/10/19 History furosemide 20 mg PO .DAILY @ 1300 11/10/19 11/10/19 History losartan 50 mg PO QAM 11/10/19 11/10/19 History mirtazapine [Remeron] 7.5 mg PO .DAILY @ 1700 11/10/19 11/10/19 History multivitamin 1 tab PO .DAILY @ 1300 11/10/19 11/10/19 History potassium chloride [Klor-Con M20] 10 meq PO BID17 11/10/19 11/10/19 History Allergies Allergy/AdvReac Type Severity Reaction Status Date / Time amlodipine AdvReac Intermediate lower leg Verified 11/10/19 20:35 edema pseudoephedrine AdvReac Mild INTOLERANCE-URINARY Verified 11/10/19 20:35 RETENTION Past Med/Surg History Medical History (Updated 11/10/19 @ 23:22 by Conrad White MD) Anxiety Chronic back pain Chronic diastolic CHF (congestive heart failure) CKD (chronic kidney disease), stage III Coronary artery disease Depression Dysphagia as late effect of cerebrovascular accident (CVA) Former smoker History of colitis History of CVA (cerebrovascular accident) "with residual RUE and RLE weakness" History of palpitations HTN (hypertension) Hypothyroidism On anticoagulant therapy Osteoarthritis Paroxysmal atrial fibrillation Renal artery stenosis, agdaagux SOB (shortness of breath) on exertion Stroke X 3-LAST ONE 07/2015 R SIDED [id number] DR AMBRIZ PRDominic ONLY DIFFICULTY SWALLOWING Surgical History (Updated 11/10/19 @ 23:22 by Conrad White MD) History of back surgery X 2 History of colonoscopy BENIGN POLYPS History of coronary artery bypass graft 3 VESSELS 2007 [facility] [place] History of esophagogastroduodenoscopy (EGD) History of renal stent LEFT X 5 STENTS-F/U DR VALLE History of repair of rotator cuff RIGHT Hx of foot surgery R/L RAYMUNDO Hx of resection of stomach PARTIAL BLEEDING ULCER S/P CABG x 3 Family History Mother Myocardial infarction Sister , 39 Cerebral aneurysm Sister Myocardial infarction, Onset Age: 40 Social History Smoking Status: Former smoker Tobacco Type: Cigarettes Second Hand Exposure: Yes (); Hx Alcohol Use: No Hx Substance Use: No Preferred Language: Mongolian Communication Ability: Effective Manager Consumer Insights Required: No Beliefs That Will Affect Care: None Current Living Situation: Family Current Living Situation Comment: lives with grandson Feels Safe at Home: Yes Review of Systems A total of 10 systems reviewed and were otherwise negative Physical Exam Vital Signs Vital Signs - 24 hr 11/10/19 19:32 11/10/19 19:38 11/10/19 20:03 Temperature 37 C Temperature Source Oral Pulse Rate 83 80 79 Pulse Rate from SpO2 Sensor 83 79 Pulse Rhythm Regular Pulse Strength Normal Respiratory Rate 20 23 Respiratory Effort / Characteristics Non-Labored Respiratory Depth Normal Respiratory Pattern Regular Blood Pressure 170/69 H 170/69 H 174/78 H Blood Pressure Mean 84 102 130 Blood Pressure Position Lying Pulse Oximetry 96 96 98 Oxygen Delivery Method Room Air Sepsis Recent Fever Within 48 Hours No Sepsis New/Unexplained Change in Mental Status No Sepsis Action Taken by Nursing No Action Required 11/10/19 20:30 11/10/19 21:00 11/10/19 21:31 Temperature Temperature Source Pulse Rate 80 78 75 Pulse Rate from SpO2 Sensor 80 Pulse Rhythm Pulse Strength Respiratory Rate Respiratory Effort / Characteristics Respiratory Depth Respiratory Pattern Blood Pressure 150/81 H 135/73 138/79 Blood Pressure Mean 98 97 82 Blood Pressure Position Pulse Oximetry 97 97 96 Oxygen Delivery Method Sepsis Recent Fever Within 48 Hours Sepsis New/Unexplained Change in Mental Status Sepsis Action Taken by Nursing General: Well developed well nourished older male who in no acute distress, breathing comfortably on room air. Normal speech. He is alert and orient x3 HEENT: Normal cephalic atraumatic. Pupils are equal round and reactive to light. Extraocular movements are intact. Oropharynx is pink with moist mucous membranes. No swelling of the mouth lips or tongue. No facial droop or asymmetry Neck: Supple with a midline trachea. No meningeal signs or stiffness, no JVD or bruits. No Stridor. Chest: Clear to auscultation bilaterally. No wheezes or rhonchi. No increased work of breathing. Scar from previous cardiac surgery Heart: Regular rate and rhythm without murmurs or gallops. Abdomen: Soft nontender, nondistended without rebound guarding or rigidity. Extremities: No cyanosis clubbing or edema. No calf tenderness or assymetry. Baseline contracture of right wrist Spine/Back. Non tender to palpation. No CVA tenderness Skin: Good turgor without rashes. Neurologic exam: Cranial nerves two through 12 are intact. He does move both lower extremities the right is slightly weaker than the left which is baseline. His right upper extremity has a contracture at the wrist. Left upper extremity is normal. Medical Decision Making Differential Diagnosis CVA, TIA, intracranial hemorrhage, hypoglycemia, electrolyte or metabolic abnormality, cardiac disease, infection, COVID Medical Records Attestation: I reviewed the patient's medical records. Home Medications Current Medication List: was personally reviewed by me Laboratory Data Attestation: I reviewed the patient's lab results. Result diagrams: 11/10/19 19:42 11/10/19 20:30 Lab Results 11/10/19 11/10/19 11/10/19 Range/Units 19:42 19:42 19:42 WBC 5.35 (4.8-10.8) K/uL RBC 3.70 L (4.7-6.1) M/uL Hgb 11.7 L (14.0-18.0) g/dL Hct 36.2 L (42-52) % MCV 97.8 (80-100) fL MCH 31.6 (25-34) pg MCHC 32.3 (32-36) g/dL RDW Std Deviation 45.1 (36.4-46.3) fL RDW Coeff of Dino 12.6 (11.5-14.5) % Plt Count 129 L (130-400) K/uL MPV 9.8 (7.4-10.4) fL Immature Gran % (Auto) 0.4 % Neut % (Auto) 62.4 % Lymph % (Auto) 20.7 % [place] % (Auto) 14.0 % Eos % (Auto) 2.1 % Baso % (Auto) 0.4 % Neut # (Auto) 3.34 (1.4-6.5) K/uL Lymph # (Auto) 1.11 L (1.2-3.4) K/uL [place] # (Auto) 0.75 H (0.11-0.59) K/uL Eos # (Auto) 0.11 (0-0.5) K/uL Baso # (Auto) 0.02 (0-0.2) K/uL Immature Gran # (Auto) 0.02 (0.00-0.02) K/uL PT 11.9 (9.0-12.0) Seconds INR 1.1 (0.9-1.1) APTT 31.6 H (21.0-31.0) Seconds PTT Ratio 1.1 Sodium 140 (136-145) mmol/L Potassium (3.5-5.1) mmol/L Chloride 104 (98-107) mmol/L Carbon Dioxide 29 (21-32) mmol/L Anion Gap 7.0 (3-11) BUN 20 H (7-18) mg/dl Creatinine 1.44 H (0.6-1.4) mg/dl Est Cr Clr Drug Dosing 40.2 ml/min Est GFR ( Amer) 53.9 Est GFR (Non-Af Amer) 46.5 BUN/Creatinine Ratio 13.8 (10-20) Glucose 137 H (70-99) mg/dl Calcium 8.4 L (8.5-10.1) mg/dl Magnesium (1.8-2.4) mg/dl Total Bilirubin 0.6 (0.2-1) mg/dl AST (15-37) U/L ALT 33 (12-78) U/L Alkaline Phosphatase 108 (45-117) U/L Troponin I < 0.015 (0-0.045) ng/ml Total Protein 6.5 (6.4-8.2) gm/dl Albumin 3.7 (3.4-5.0) gm/dl Globulin 2.8 (2.5-4.0) gm/dl Albumin/Globulin Ratio 1.3 (0.9-2) Specimen Hemolysis Urine Color Urine Appearance (Clear) Urine pH (4.5-7.5) Ur Specific [place] (1.000-1.030) Urine Protein (Negative) Urine Glucose (UA) (Negative) Urine Ketones (Negative) Urine Blood (Negative) Urine Nitrite (Negative) Urine Bilirubin (Negative) Urine Urobilinogen (Negative) Ur Leukocyte Esterase (Negative) Urine WBC (Auto) (0-5) /hpf Urine RBC (Auto) (0-4) /hpf U Hyaline Cast (Auto) (0-5) /lpf U Epithel Cells (Auto) (0-5) /lpf Urine Bacteria (Auto) (Negative) 11/10/19 11/10/19 Range/Units 20:30 20:55 WBC (4.8-10.8) K/uL RBC (4.7-6.1) M/uL Hgb (14.0-18.0) g/dL Hct (42-52) % MCV (80-100) fL MCH (25-34) pg MCHC (32-36) g/dL RDW Std Deviation (36.4-46.3) fL RDW Coeff of Dino (11.5-14.5) % Plt Count (130-400) K/uL MPV (7.4-10.4) fL Immature Gran % (Auto) % Neut % (Auto) % Lymph % (Auto) % [place] % (Auto) % Eos % (Auto) % Baso % (Auto) % Neut # (Auto) (1.4-6.5) K/uL Lymph # (Auto) (1.2-3.4) K/uL [place] # (Auto) (0.11-0.59) K/uL Eos # (Auto) (0-0.5) K/uL Baso # (Auto) (0-0.2) K/uL Immature Gran # (Auto) (0.00-0.02) K/uL PT (9.0-12.0) Seconds INR (0.9-1.1) APTT (21.0-31.0) Seconds PTT Ratio Sodium (136-145) mmol/L Potassium 3.8 (3.5-5.1) mmol/L Chloride (98-107) mmol/L Carbon Dioxide (21-32) mmol/L Anion Gap (3-11) BUN (7-18) mg/dl Creatinine (0.6-1.4) mg/dl Est Cr Clr Drug Dosing ml/min Est GFR ( Amer) Est GFR (Non-Af Amer) BUN/Creatinine Ratio (10-20) Glucose (70-99) mg/dl Calcium (8.5-10.1) mg/dl Magnesium 2.2 (1.8-2.4) mg/dl Total Bilirubin (0.2-1) mg/dl AST 31 (15-37) U/L ALT (12-78) U/L Alkaline Phosphatase (45-117) U/L Troponin I (0-0.045) ng/ml Total Protein (6.4-8.2) gm/dl Albumin (3.4-5.0) gm/dl Globulin (2.5-4.0) gm/dl Albumin/Globulin Ratio (0.9-2) Specimen Hemolysis Urine Color Yellow Urine Appearance Clear (Clear) Urine pH 6.5 (4.5-7.5) Ur Specific [place] 1.009 (1.000-1.030) Urine Protein Negative (Negative) Urine Glucose (UA) Negative (Negative) Urine Ketones Negative (Negative) Urine Blood Negative (Negative) Urine Nitrite Negative (Negative) Urine Bilirubin Negative (Negative) Urine Urobilinogen Negative (Negative) Ur Leukocyte Esterase Trace H (Negative) Urine WBC (Auto) 1-5 (0-5) /hpf Urine RBC (Auto) 0-4 (0-4) /hpf U Hyaline Cast (Auto) 1-5 (0-5) /lpf U Epithel Cells (Auto) 5-10 H (0-5) /lpf Urine Bacteria (Auto) Negative (Negative) Imaging Data Radiologist's Impression: CT head/brain wo con CLINICAL HISTORY: 79 years-old Male with Stroke evaluation . Acute strokelike symptoms TECHNIQUE: Multiple axial CT images of the head were obtained without contrast. A dose lowering technique was utilized adhering to the principles of ALARA. CT DOSE: 537.48 mGy.cm COMPARISON: Head CT 05/14/2019. FINDINGS: No acute intracranial hemorrhage, midline shift, intra-axial mass, hydrocephal us, territorial ischemia or abnormal extra-axial collection. Age-related involutional changes with ex vacuo ventriculomegaly. Extensive patchy and confluent white matter hypodensities suggest chronic microvascular ischemic disease. Encephalomalacia from remote infarct redemonstrated involving the co maribell radiata left frontal lobe/lentiform nucleus. Cerebral vascular calcifications. Megacisterna magna. Extra-axial 8 mm calcification adjacent to the falx cerebri near the vertex is suggestive of a probable calcified meningioma. The calvarium is intact. The paranasal sinuses, mastoid air cells, and middle ear cavities are clear. IMPRESSION: No acute intracranial abnormality. ECG Data Attestation: I personally reviewed and interpreted this ECG as follows: Indication: + weakness Rate (beats per minute): 78 Rhythm: + normal sinus and + other (Poor baseline/baseline artifact) ECG Intervals/blocks: + First degree AV block, + Normal QRS and + Normal QT ECG [place]: + Normal ECG ST segments: + Nonspecific ST abnormalities ECG Findings: no PACs and no PVCs Comparison ECG Date: from (05/14/2019) Change: no significant change MDM Narrative This patient comes in with strokelike symptoms. He does have a history of having several strokes in the past with some baseline residual right arm and leg weakness. Tonight at 623 he had an episode where he had a aphasia right facial droop and was staring. There is no reported seizure activity. This lasted about 15 minutes and he is back to his normal neurologic baseline. he is answering all questions appropriately and just complained about feeling cold. His blood sugar was 172. A full stroke work-up was ordered and given the fact that his symptoms have resolved a stroke alert was not called but he was monitored closely for recurrence of symptoms. He was placed on a conveyor monitor. His EKG was obtained which shows no ischemic changes or ectopy seen. He has no chest pain or shortness of breath. CAT scan of his head is unremarkable. His troponin is negative he is nursing of electrolyte or metabolic abnormality does not suggest infection or sepsis. Given his neurologic symptoms I think he most likely had a TIA and I do think he needs to be admitted for further inpatient treatment evaluation. He was agreeable and happy with the plan as was his daughter. [facility] Continuous cardiac monitoring: An order was placed for continuous cardiac monitoring. He was noted to be in normal sinus rhythm with a rate of 78. Impression & Plan TIA (transient ischemic attack), Aphasia, CVA, old, hemiparesis, S/P CABG (coronary artery bypass graft) Discharge Plan Visit Data Chief Complaint: Stroke/CVA Symptoms Stated Complaint: STROKE SX ED Provider: Conrad White Discharge Problem: TIA (transient ischemic attack), Aphasia, CVA, old, hemiparesis, S/P CABG (coronary artery bypass graft) Patient Disposition: Admitted As Inpatient Discharge Instructions Interventions: ED Discharge Assessment Last Done: 11/10/19 22:38
[2019-11-10 19:57] LABS: Basophils # (auto) 0.02 K/uL (0-0.2); Basophils % (auto) 0.4 %; Eosinophils # (auto) 0.11 K/uL (0-0.5); Eosinophils % (auto) 2.1 %; Hematocrit (blood only) 36.2 % (42-52); Hemoglobin 11.7 g/dL (14.0-18.0); Immature Granulocytes # (auto) 0.02 K/uL (0.00-0.02); Immature Granulocytes % (auto) 0.4 %; Lymphocytes # (auto) 1.11 K/uL (1.2-3.4); Lymphocytes % (auto) 20.7 %; Mean Corpuscular Hemoglobin 31.6 pg (25-34); Mean Corpuscular Hgb Conc 32.3 g/dL (32-36); Mean Corpuscular Volume 97.8 fL (80-100); Mean Platelet Volume 9.8 fL (7.4-10.4); Monocytes # (auto) 0.75 K/uL (0.11-0.59); Neutrophils # (auto) 3.34 K/uL (1.4-6.5); Neutrophils % (auto) 62.4 %; Platelet Count 129 K/uL (130-400); RDW Coefficient of Variation 12.6 % (11.5-14.5); RDW Standard Deviation 45.1 fL (36.4-46.3); White Blood Count 5.35 K/uL (4.8-10.8)
[2019-11-10 20:07] LABS: INR 1.1 (0.9-1.1); Partial Thromboplastin Ratio 1.1; Partial Thromboplastin Time 31.6 Seconds (21.0-31.0); Prothrombin Time 11.9 Seconds (9.0-12.0)
--- NOTE | 2019-11-10 20:10 | CT Scan Report ---
CT head/brain wo con CLINICAL HISTORY: 79 years-old Male with Stroke evaluation . Acute strokelike symptoms TECHNIQUE: Multiple axial CT images of the head were obtained without contrast. A dose lowering tech nique was utilized adhering to the principles of ALARA. CT DOSE: 537.48 mGy.cm COMPARISON: Head CT 05/14/2019. FINDINGS: No acute intracranial hemorrhage, midline shift, intra-axial mass, hydrocephalus, territorial ischemi a or abnormal extra-axial collection. Age-related involutional changes with ex vacuo ventriculomegaly . Extensive patchy and confluent white matter hypodensities suggest chronic microvascular ischemic di sease. Encephalomalacia from remote infarct redemonstrated involving the balderas radiata left frontal lobe/lentiform nucleus. Cerebral vascular calcifications. Megacisterna magna. Extra-axial 8 mm calcif ication adjacent to the falx cerebri near the vertex is suggestive of a probable calcified meningioma . The calvarium is intact. The paranasal sinuses, mastoid air cells, and middle ear cavities are clear . IMPRESSION: No acute intracranial abnormality. ACT 112: Negative or not required by law. The above report was generated using voice recognition software. It may contain grammatical, syntax o r spelling errors. Electronically signed by: Live Valencia M.D. 11/10/2019 8:08 PM
[2019-11-10 20:23] LABS: Alanine Aminotransferase 33 U/L (12-78); Albumin Level 3.7 gm/dl (3.4-5.0); BUN Creatinine Ratio 13.8 (10-20); Blood Urea Nitrogen 20 mg/dl (7-18); Calcium 8.4 mg/dl (8.5-10.1); Carbon Dioxide 29 mmol/L (21-32); Chloride 104 mmol/L (98-107); Creatinine Clr Calc Pharmacy 40.2 ml/min; Est GFR (African American) 53.9; Est GFR (Non-African American) 46.5; Glucose 137 mg/dl (70-99); Sodium 140 mmol/L (136-145)
[2019-11-10 20:24] LABS: Albumin Globulin Ratio 1.3 (0.9-2); Alkaline Phosphatase 108 U/L (45-117); Bilirubin,Total 0.6 mg/dl (0.2-1); Globulin 2.8 gm/dl (2.5-4.0); Total Protein 6.5 gm/dl (6.4-8.2); Troponin I < 0.015 ng/ml (0-0.045)
[2019-11-10 21:19] LABS: Magnesium 2.2 mg/dl (1.8-2.4); Potassium 3.8 mmol/L (3.5-5.1)
[2019-11-10 21:41] LABS: Appearance Urine Clear (Clear); Bacteria Urine Automated Negative (Negative); Bilirubin Urine Negative (Negative); Blood Urine Negative (Negative); Color Urine Yellow; Glucose Urine UA Negative (Negative); Ketones Urine Negative (Negative); Leukocyte Esterase Urine Trace (Negative); Nitrite Urine Negative (Negative); Protein Urine Negative (Negative); RBC Urine Automated 0-4 /hpf (0-4); Specific Gravity Urine 1.009 (1.000-1.030); Urobilinogen Urine Negative (Negative); pH Urine 6.5 (4.5-7.5)
--- NOTE | 2019-11-10 22:07 | History & Physical Report ---
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, on aspirin and Plavix; history of paroxysmal atrial fibrillation however not anticoagulated secondary to fall risk, chronic anemia, history of duodenal ulcer -Head CT negative for acute findings -Brain MRI/MRA, neck MRA -Echo -Neurochecks -Continue aspirin, Plavix, statin -Neurology consult, input appreciated (2) CAD (coronary artery disease): -Appears stable, no reports of chest pain -Continue aspirin, Plavix, statin, beta-millie (3) Chronic diastolic CHF (congestive heart failure): -Appears euvolemic -Continue home dose of furosemide (4) Paroxysmal atrial fibrillation: -Rhythm controlled on amiodarone -Rate controlled on carvedilol -Not anticoagulated secondary to fall risk, chronic anemia, history of duodenal ulcer (5) HTN (hypertension): -BP controlled, continue losartan and carvedilol (6) CKD (chronic kidney disease), stage III: -Baseline creatinine runs in the mid 1's -Noted be 1.4 today -Monitor renal functions (7) Ulcerative colitis: -No acute issues -Continue sulfasalazine (8) DVT prophylaxis: -SQ heparin History of Present Illness Chief Complaint: Facial droop Primary Care Provider: Natalie Agee MD 79-year-old male with PMH CVA with residual right-sided weakness, renal artery stenosis s/p stenting, HTN, paroxysmal atrial fibrillation, ulcerative colitis, CKD stage III, CAD, and other problems listed below who presents to the ED for evaluation of right-sided facial droop. Daughter is the bedside who provides some history. She reports that she was watching TV with her father when she noted the right side of his face began to droop and he was also drooling. She reports his words were garbled. He was using his left hand to wipe the drill from the right side of his face. Patient reports he remembers the episode. Says he was able to understand what his daughter was saying however could not get his words out. EMS was called. Daughter reports symptoms lasted about 15 minutes and resolved on their own. Patient reports he otherwise been feeling well recently. No chest pain or shortness of breath. Denies lightheadedness, dizziness, diaphoresis, syncopal events. No abdominal pain, nausea, vomiting, diarrhea. Denies any urinary symptoms. In the ED, patient is hemodynamically stable. Head CT is negative for acute findings. Labs are unremarkable. Allergies Allergy/AdvReac Type Severity Reaction Status Date / Time amlodipine AdvReac Intermediate lower leg Verified 11/10/19 20:35 edema pseudoephedrine AdvReac Mild INTOLERANCE-URINARY Verified 11/10/19 20:35 RETENTION Home Medications Home Medications Medication Instructions Recorded Confirmed Type amiodarone 200 mg PO QAM 12/17/17 11/10/19 History aspirin [Aspir-81] 81 mg PO DAILY@1300 12/17/17 11/10/19 History clopidogrel [Plavix] 75 mg PO QAM 12/17/17 11/10/19 History folic acid 1 mg PO HS 12/17/17 11/10/19 History furosemide [Lasix] 40 mg PO DAILY 12/17/17 11/10/19 History pantoprazole 40 mg PO BID 12/17/17 11/10/19 History sulfasalazine 500 mg PO QID 12/17/17 11/10/19 History tamsulosin 0.4 mg PO QPM@1700 12/17/17 11/10/19 History levothyroxine 100 mcg PO HS 08/24/18 11/10/19 History carvedilol 25 mg PO BID17 04/07/19 11/10/19 History finasteride 5 mg PO QAM 04/07/19 11/10/19 History montelukast 10 mg PO DAILY@1700 05/14/19 11/10/19 History rosuvastatin 20 mg PO QAM 05/14/19 11/10/19 History acetaminophen 500 mg capsule 500 mg PO Q6H PRN 09/22/19 11/10/19 History escitalopram oxalate 10 mg PO .DAILY @ 129911/10/19 11/10/19 History furosemide 20 mg PO .DAILY @ 129911/10/19 11/10/19 History losartan 50 mg PO QAM 11/10/19 11/10/19 History mirtazapine [Remeron] 7.5 mg PO .DAILY @ 17011/10/19 11/10/19 History multivitamin 1 tab PO .DAILY @ 1300 11/10/19 11/10/19 History potassium chloride [Klor-Con M20] 10 meq PO BID17 11/10/19 11/10/19 History Past Med/Surg History Medical History (Updated 11/10/19 @ 23:22 by Conrad White MD) Anxiety Chronic back pain Chronic diastolic CHF (congestive heart failure) CKD (chronic kidney disease), stage III Coronary artery disease Depression Dysphagia as late effect of cerebrovascular accident (CVA) Former smoker History of colitis History of CVA (cerebrovascular accident) "with residual RUE and RLE weakness" History of palpitations HTN (hypertension) Hypothyroidism On anticoagulant therapy Osteoarthritis Paroxysmal atrial fibrillation Renal artery stenosis, kenaitze SOB (shortness of breath) on exertion Stroke X 3-LAST ONE 07/2015 R SIDED [id number] DR AMBRIZ PRN ONLY DIFFICULTY SWALLOWING Surgical History (Updated 11/10/19 @ 23:22 by Conrad White MD) History of back surgery X 2 History of colonoscopy BENIGN POLYPS History of coronary artery bypass graft 3 VESSELS 2007 [facility] [place] History of esophagogastroduodenoscopy (EGD) History of renal stent LEFT X 5 STENTS-F/U DR VALLE History of repair of rotator cuff RIGHT Hx of foot surgery R/L RAYMUNDO Hx of resection of stomach PARTIAL BLEEDING ULCER S/P CABG x 3 Family History Mother Myocardial infarction Sister , 39 Cerebral aneurysm Sister Myocardial infarction, Onset Age: 40 Social History Smoking Status: Former smoker Tobacco Type: Cigarettes Second Hand Exposure: Yes (); Hx Alcohol Use: No Hx Substance Use: No Preferred Language: Bengali Communication Ability: Effective Business Development Executive Required: No Beliefs That Will Affect Care: None Current Living Situation: Family Current Living Situation Comment: Grandson Other Information That Helps Us Care for You: No Feels Safe at Home: Yes Safety Concerns: Feels Safe At This Time Review of Systems Review of Systems: ROS per HPI, all other systems reviewed and negative Physical Exam Constitutional: WD/WN, vitals as above Eyes: PERRL, conjunctivae normal, anicteric sclerae ENMT: external ear and nose normal, oropharynx normal Respiratory: normal respiratory effort, lungs clear to auscultation Cardiovascular: Rate/Rhythm: regular rate and regular rhythm Vessels: normal peripheral pulses Extremities: no edema Gastrointestinal (Abdomen): normal bowel sounds, soft, nontender, no hepatosplenomegaly Musculoskeletal: Extremities: no cyanosis and no clubbing Right-sided hemiplegia from prior CVA Skin: no rashes, warm and dry Neurologic: PERRL, EOMI, accommodation nl, no face palsy, no dysarthria Psychiatric: A+Ox3, euthymic affect Results & Data Results & Data ([facility]) Vital Signs (Past 12 Hours) Vital Signs Temp Pulse Resp BP Pulse Ox 11/10/19 21:31 75 138/79 96 11/10/19 21:00 78 135/73 97 11/10/19 20:30 80 150/81 H 97 11/10/19 20:03 79 23 174/78 H 98 11/10/19 19:38 37 C 80 20 170/69 H 96 11/10/19 19:32 83 170/69 H 96 Laboratory Results Short CBC 11/10/19 Range/Units 19:42 WBC 5.35 (4.8-10.8) K/uL Hgb 11.7 L (14.0-18.0) g/dL Hct 36.2 L (42-52) % Plt Count 129 L (130-400) K/uL BMP 11/10/19 11/10/19 19:42 20:30 Sodium 140 Potassium 3.8 Chloride 104 Carbon Dioxide 29 BUN 20 H Creatinine 1.44 H Glucose 137 H Calcium 8.4 L Cardiac Enzymes 11/10/19 Range/Units 19:42 Troponin I < 0.015 (0-0.045) ng/ml Liver Function 11/10/19 11/10/19 Range/Units 19:42 20:30 Total Bilirubin 0.6 (0.2-1) mg/dl AST 31 (15-37) U/L ALT 33 (12-78) U/L Alkaline Phosphatase 108 (45-117) U/L Albumin 3.7 (3.4-5.0) gm/dl Urine 11/10/19 Range/Units 20:55 Urine Color Yellow Urine Appearance Clear (Clear) Urine pH 6.5 (4.5-7.5) Ur Specific [place] 1.009 (1.000-1.030) Urine Protein Negative (Negative) Urine Glucose (UA) Negative (Negative) Diagnostic Findings HEAD CT IMPRESSION: No acute intracranial abnormality. Code Status & VTE Plan Code Status Patient is a full code as per my discussion with him. VTE Prophylaxis Plan VTE Prophylaxis will be ordered: Yes Supervising Physician Co-Signing Physician Notes 79-year-old male with PMH CVA with residual right-sided weakness, renal artery stenosis s/p stenting, HTN, paroxysmal atrial fibrillation, ulcerative colitis, CKD stage III, CAD presents to the ED for evaluation of right-sided facial droop. symptoms occurred while patient was watching TV. Daughter noticed that she had a right sided facial droop and she was drooling. Speech was garbled. Pt is back to his baseline. Denies any chest pain, palpitation, dizziness and sob. No focal neuro deficit on exam. CT head showed no acute intracranial abnormality. Will get MRI/MRA brain and MRA neck. Will get an echo. Neuro consult. PT/OT/Speech therapy. Continue aspirin, plavix and statin. Continue neuro check. Will continue to monitor in tele. MD Charles
[2019-11-10] MEDS ORDERED: ACETAMINOPHEN 325 MG TAB PO PRN (22:56)
[2019-11-10] MEDS ORDERED: PHARMACIST DISCHARGE MED REC CONSULT PRN (22:56)
[2019-11-11] MEDS ORDERED: GADOBUTROL 65ML VIAL IV ONE (00:47)
[2019-11-11] MEDS: HEPARIN SOD 5,000 UNIT/0.5 ML VIAL SQ SCH ×4 (00:54→21:02)
[2019-11-11 06:58] LABS: Hemoglobin 10.7 g/dL (14.0-18.0); Mean Corpuscular Hemoglobin 32.1 pg (25-34); Mean Corpuscular Hgb Conc 33.4 g/dL (32-36); Mean Corpuscular Volume 96.1 fL (80-100); RDW Coefficient of Variation 12.4 % (11.5-14.5); RDW Standard Deviation 43.5 fL (36.4-46.3); Red Blood Count 3.33 M/uL (4.7-6.1); White Blood Count 4.17 K/uL (4.8-10.8)
--- NOTE | 2019-11-11 07:16 | Magnetic Resonance Report ---
MRI OF THE BRAIN WITHOUT AND WITH IV CONTRAST CLINICAL HISTORY: Transient ischemic attack. COMPARISON STUDY: Head CT November 10, 2019. TECHNIQUE: Utilizing a 1.5 Zahira magnet and dedicated coil, multiplanar, multiecho imaging of the br ain was performed pre and postcontrast administration. IV administration of 6.9 mL of Gadavist contr ast was uneventful. FINDINGS: There are no foci of restricted diffusion to suggest acute infarct. No acute intracranial h emorrhage, midline shift or mass effect is present. There is mild asymmetric dilatation of the left v entricle. This is chronic. Several old infarcts are noted, including an infarct within the periventri cular left frontal lobe. There are lacunar infarcts within the brainstem. Extensive white matter T2 h yperintensity reflect small vessel disease. Note is made of a 9 mm enhancing extra-axial lesion along the left posterior aspect of the falx on axial image 20 of 22. No additional intracranial masses are present. There is moderate atrophy. There are no extra-axial fluid collections. Calvarial signal is normal. Orbits are unremarkable. IMPRESSION: 1. No acute intracranial findings. 2. Several old infarcts, as described above. Moderate atrophy and extensive small vessel disease. 3. 9 mm enhancing extra-axial posterior left parafalcine lesion suggestive of a small meningioma. ACT 112: Negative or not required by law. Electronically signed by: Frantz Perez M.D. 11/11/2019 7:14 AM
--- NOTE | 2019-11-11 07:23 | Magnetic Resonance Report ---
MR ANGIOGRAM OF THE NECK COMBO CLINICAL HISTORY: Transient ischemic attack. COMPARISON STUDY: CT scan of the neck dated 08/06/2008. TECHNIQUE: Axial 3-D mrvx-en-vassvo MR angiography of the neck is performed. Subsequently, following the IV administration of 6.9 cc of Gadavist. Coronal MR angiogram of the neck was performed to corrob orate the findings. 3-D reformats are created and assessed. All measurements were calculated based on NASCET criteria. FINDINGS: Visualized portions of the thoracic aorta are normal in caliber. The aortic arch demonstrat es standard 3-vessel anatomy. The subclavian arteries are widely patent bilaterally. The right common carotid artery is patent, as are the right internal and external carotid arteries. The left common c arotid artery is patent, as are the left internal and external carotid arteries. Atherosclerotic plaq ue is seen in the carotid bulbs. This does not cause significant stenosis of the internal carotid art eries. There is moderate stenosis at the origin of the left external carotid artery. 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 The right vertebral artery is widely patent. The right vertebral artery is d ominant. The left vertebral artery is diminutive and may terminate as the PICA. The visualized intrac ranial vessels at the skull base appear patent. IMPRESSION: 1. The internal carotid arteries are patent bilaterally. 2. There is moderate stenosis at the origin of the left external carotid artery. 3. There is chronic occlusion of the proximal and mid portions of the diminutive left vertebral arter y. This was also seen on the neck CT dated 08/06/2008. ACT 112: Negative or not required by law. Electronically signed by: Norman Ahumada M.D. 11/11/2019 7:22 AM
[2019-11-11 07:24] LABS: Basophils # (auto) 0.01 K/uL (0-0.2); Basophils % (auto) 0.2 %; Eosinophils # (auto) 0.09 K/uL (0-0.5); Eosinophils % (auto) 2.2 %; Immature Granulocytes # (auto) 0.01 K/uL (0.00-0.02); Immature Granulocytes % (auto) 0.2 %; Lymphocytes # (auto) 1.22 K/uL (1.2-3.4); Lymphocytes % (auto) 29.3 %; Mean Platelet Volume 9.3 fL (7.4-10.4); Monocytes # (auto) 0.55 K/uL (0.11-0.59); Monocytes % (auto) 13.2 %; Neutrophils # (auto) 2.29 K/uL (1.4-6.5); Neutrophils % (auto) 54.9 %; Platelet Count 90 K/uL (130-400)
[2019-11-11 07:39] LABS: BUN Creatinine Ratio 13.2 (10-20); Calcium 8.5 mg/dl (8.5-10.1); Creatinine Clr Calc Pharmacy 39.6 ml/min; Est GFR (Non-African American) 45.7; Potassium 3.8 mmol/L (3.5-5.1)
[2019-11-11] MEDS: AMIODARONE 200 MG TAB PO SCH (08:29)
[2019-11-11] MEDS: LOSARTAN POTASSIUM 50 MG TAB PO SCH (08:29)
[2019-11-11] MEDS: ROSUVASTATIN CALCIUM 20 MG TAB PO SCH (08:29)
[2019-11-11] MEDS: sulfaSALAzine 500 MG TABLET PO SCH ×4 (08:29→21:01)
[2019-11-11] MEDS: FINASTERIDE 5 MG TAB PO SCH (08:30)
[2019-11-11] MEDS: FUROSEMIDE 40 MG TAB PO SCH (08:30)
[2019-11-11] MEDS: CLOPIDOGREL BISULFATE 75 MG TAB PO SCH (08:30)
[2019-11-11] MEDS: carvediloL 25 MG TAB PO SCH ×2 (08:30→17:13)
[2019-11-11] MEDS: POTASSIUM CHLORIDE 10 MEQ TABCR PO SCH ×2 (08:30→17:13)
--- NOTE | 2019-11-11 08:35 | Magnetic Resonance Report ---
MR angio head wo con HISTORY: 79 years-old Male TIA acute strokelike symptoms COMPARISON: Brain MRI and head CT studies of same day TECHNIQUE: MRA of the head was obtained without the use of IV contrast utilizing 3-D [id number]-hyumzi s equencing with MIP reformats. All measurements were obtained according to NASCET criteria. FINDINGS: Block Saw Operator localizer images demonstrate no gross extracranial abnormality. There is a 5 mm segment of mode rate to high-grade luminal narrowing involving the right carotid terminus. There is mild to moderate luminal narrowing within the left carotid terminus, likely secondary to atherosclerotic vascular dise ase. There is abrupt vessel cut off within the proximal right middle cerebral artery on image 98 seri es 8 with minimal reconstitution of flow seen within the M2 and 3 branches on the right. There is ove rall decreased vascular flow to the right middle cerebral artery distal branches compared the left. T he left middle cerebral artery and anterior cerebral arteries appear patent. The distal right vertebral artery appears normal. There is only minimal flow noted within the distal left vertebral artery on image 1 series 8 without appreciable flow seen within the left V4 segment. T he basilar artery is patent. Focal area of high-grade luminal narrowing involves the right posterior cerebral artery on image 109 series 8. The left posterior cerebral artery is patent. IMPRESSION: 1. Abrupt vessel cut off within the M1 segment right middle cerebral artery with minimal reconstituti on of flow seen within the distal M2 and M3 branches is favored to be chronic as there is no acute or subacute infarct identified on the brain MRI of same day. 2. 5 mm segment of moderate to high-grade luminal narrowing involves the right carotid terminus. 3. No appreciable flow identified within the distal left vertebral artery which may reflect age-indet erminate occlusion/high-grade stenosis or developmentally diminutive vessel. 4. Focal area of high-grade stenosis involves the right posterior cerebral artery. ACT 112: Negative or not required by law. The above report was generated using voice recognition software. It may contain grammatical, syntax o r spelling errors. Electronically signed by: Live Valencia M.D. 11/11/2019 8:33 AM
[2019-11-11 09:26] LABS: Estimated Average Glucose 68 mg/dl; Hemoglobin A1C < 4.0 % (4.5-5.6)
[2019-11-11] MEDS: PANTOprazole 40 MG TAB PO SCH ×2 (12:14→17:13)
[2019-11-11] MEDS: ESCITALOPRAM OXALATE 10 MG TAB PO SCH (12:14)
[2019-11-11] MEDS: FUROSEMIDE 20 MG TAB PO SCH (12:14)
[2019-11-11] MEDS: ASPIRIN 81 MG ECTAB PO SCH (12:14)
[2019-11-11] MEDS: MULTIVITAMIN TAB PO SCH (12:14)
--- NOTE | 2019-11-11 15:06 | Hospitalist Progress Note ---
Date of Service November 11, 2019 Assessment & Plan (1) TIA (transient ischemic attack): TIA H/O CVA with right residual nargis-plegia and dysphagia H/O P.Afib --Not on anticoagulation --MRI Brain:No acute intracranial findings. Several old infarcts, as described above. Moderate atrophy and extensive small vessel disease. 9 mm enhancing extra-axial posterior left parafalcine lesion suggestive of a small meningioma. --Head MRA:Abrupt vessel cut off within the M1 segment right middle cerebral artery with minimal reconstitution of flow seen within the distal M2 and M3 branches is favored to be chronic as there is no acute or subacute infarct identified on the brain MRI of same day. 5 mm segment of moderate to high-grade luminal narrowing involves the right carotid terminus. No appreciable flow identified within the distal left vertebral artery which may reflect age- indeterminate occlusion/high-grade stenosis or developmentally diminutive vessel. Focal area of high-grade stenosis involves the right posterior cerebral artery. --Neck MRA:The internal carotid arteries are patent bilaterally. There is moderate stenosis at the origin of the left external carotid artery. 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 This was also seen on the neck CT dated 08/06/2008. --ECHO: No ASD --LDL:45 --Continue aspirin, Plavix, Crestor --Neurology consulted --PT/OT/ Speech eval --Fall/Aspiration Precautions (2) CAD (coronary artery disease): Stable Continue aspirin, Plavix, statin, beta-millie (3) Chronic diastolic CHF (congestive heart failure): Currently Euvolemic Continue home diuretics Monitor volume status (4) Paroxysmal atrial fibrillation: Currently in sinus Continue amiodarone, carvedilol Not on anticoagulated secondary to fall risk, chronic anemia, H/O Duodenal ulcer, Epistaxis (5) HTN (hypertension): Stable Continue losartan, Carvedilol (6) CKD (chronic kidney disease), stage III: Baseline Cr: 1.3 ~1.5 Cr at baseline Monitor renal function Avoid Nephrotoxic agents as able (7) Ulcerative colitis: Continue sulfasalazine Chronic thrombocytopenia Monitor platelets We will consider to discontinue SQ heparin if platelet count continues to drop (8) DVT prophylaxis: SQ heparin Disposition PT/OT prior to discharge Admission and Anticipated Discharge Date Admission Date: November 11, 2019 Subjective Patient is seen and examined at bedside Right facial droop resolved Reports chronic right-sided weakness--unchanged Denies chest pain, shortness of breath, dizziness, nausea, abdominal pain, change in vision Offers no other complaints No family at bedside Review of Systems Review of Systems: All systems reviewed & are unremarkable except as noted in HPI & below Physical Exam Physical Exam: Physical Exam: Vitals signs as noted above General Appearance:Moderately built and nourished, no apparent distress Head: normocephalic, Atraumatic Eyes: normal inspection, EOMI Neck: supple, Trachea midline Respiratory/Chest: Normal breath sounds, CTA Chest: +CABG scar Cardiovascular: S1, S2, + murmur Abdomen/GI:Soft, Non tender, Bowel sounds present Extremities/Musculoskelatal:normal inspection, no edema Neurologic/Psych:AAOX3, Chronic right sided hemiplegia RUE> RLE Skin: normal color, warm Results & Data Results & Data ([facility]) Vital Signs (Past 12 Hours) Vital Signs Temp Pulse Pulse Resp BP Pulse Ox 11/11/19 11:38 36.9 C 84 18 132/61 98 11/11/19 10:00 66 11/11/19 07:43 36.8 C 73 20 128/63 96 Laboratory Results Short CBC 11/10/19 11/11/19 Range/Units 19:42 06:44 WBC 5.35 4.17 L (4.8-10.8) K/uL Hgb 11.7 L 10.7 L (14.0-18.0) g/dL Hct 36.2 L 32.0 L (42-52) % Plt Count 129 L 90 L (130-400) K/uL BMP 11/10/19 11/10/19 11/11/19 19:42 20:30 06:44 Sodium 140 143 Potassium 3.8 3.8 Chloride 104 107 Carbon Dioxide 29 30 BUN 20 H 19 H Creatinine 1.44 H 1.46 H Glucose 137 H 83 Calcium 8.4 L 8.5 Cardiac Enzymes 11/10/19 Range/Units 19:42 Troponin I < 0.015 (0-0.045) ng/ml Liver Function 11/10/19 11/10/19 Range/Units 19:42 20:30 Total Bilirubin 0.6 (0.2-1) mg/dl AST 31 (15-37) U/L ALT 33 (12-78) U/L Alkaline Phosphatase 108 (45-117) U/L Albumin 3.7 (3.4-5.0) gm/dl Urine 11/10/19 Range/Units 20:55 Urine Color Yellow Urine Appearance Clear (Clear) Urine pH 6.5 (4.5-7.5) Ur Specific [place] 1.009 (1.000-1.030) Urine Protein Negative (Negative) Urine Glucose (UA) Negative (Negative)
--- NOTE | 2019-11-11 16:21 | Communication Note ---
Date of Service: November 11, 2019 Gustavo is 79 years old has had several left hemispheric CVAs with resultant right hemiparesis dysarthria and mild aphasia, has had coronary artery bypass grafting is in paroxysmal atrial fibrillation but now is in sinus rhythm, has stage III renal disease hypertension renal artery stenosis peripheral vascular disease chronic diastolic heart failure, dyslipidemia, ulcerative colitis, esophagitis and benign colonic polyps He was brought in because of a 15 to 20-minute episode of increased lower right facial drooping not recognized by the patient himself but by his daughter and occurring in the setting without any evidence for viral illness febrile illness of any kind exacerbation of his underlying medical problems or any symptoms that might have suggested hypotension Symptoms have resolved an MRI scan shows no evidence for an acute infarction only the old disease and there is evidence for an occlusion of the left middle cerebral artery likely chronic and some relatively minor occlusions of external carotid arteries and a more significant at stenosis of the right posterior cerebral artery He has been on dual antiplatelet therapy with a single aspirin and a full Plavix today He currently wants to go home and I think plans are to discharge him tonight as she has been asymptomatic now for nearly 24 hours and we found no evidence for significant new issues in the extracranial or intracranial vasculature An echocardiogram shows no signs of potential emboli originating in the heart and monitoring is shown no evidence for atrial fibrillation I am not sure what caused this transient weakness of the right face. He could have had some transient hypoperfusion of that region of the left hemisphere as he does have potential for collateral failure with the occluded branch of the middle cerebral artery It could have been a true TIA At this point however I am reluctant to add more antiplatelet agents although certainly one could double up on the aspirin, continue the Plavix with a minimal risk My suggestions would be to discharge him, continue with his current antiplatelet regimen and have a verify study done on his platelet function on an outpatient basis in the [facility] system We can see him from a neurologic point of view weeks after his return home the CVs had recurrent events and we can have the verify study drawn in our office and reviewed I discussed this with his current attending physician Dr. Reji Garcia MD
--- NOTE | 2019-11-11 16:27 | Communication Note ---
Date of Service: November 11, 2019 I inadvertently did not record examination on my last note His blood pressure is 135/76 pulse is 73 and regular respirations are 18 he is awake alert oriented has mildly dysarthric speech some word finding deficits, mild right upper motor neuron facial paresis and a mild paresis of the right arm with an early contracture and some clumsiness of the right leg with no significant sensory loss and with weakness consistent with an upper motor neuron pattern and some appropriate hyperreflexia of the right arm and leg, positive Rocio sign and upgoing toe All these deficits could easily be old and stable and according to the patient he notices and did not notice any change in his neurologic function at the time of his possible TIA Gregory Garcia MD
[2019-11-11] MEDS: TAMSULOSIN HCL 0.4 MG CAP PO SCH (17:12)
[2019-11-11] MEDS: MIRTAZAPINE TAB 15 MG TAB PO SCH (17:12)
[2019-11-11] MEDS: MONTELUKAST SODIUM 10 MG TABLET PO SCH (17:13)
--- NOTE | 2019-11-11 18:56 | Electrocardiogram Report ---
Test Reason : Blood Pressure : / mmHG Vent. Rate : 078 BPM Atrial Rate : 078 BPM P-R Int : 260 ms QRS Dur : 096 ms QT Int : 426 ms P-R-T Axes : 110 063 107 degrees QTc Int : 485 ms Sinus rhythm with 1st degree A-V block Low voltage QRS Nonspecific ST abnormality Prolonged QT Abnormal ECG When compared with ECG of 14-MAY-2019 13:12, NM interval has increased Confirmed by Florencio Gerber ([id number]) on 11/11/2019 6:56:15 PM Referred By: REFERRED SELF Confirmed By:Kip Gerber
[2019-11-11] MEDS ORDERED: FOLIC ACID 1 MG TAB PO SCH (21:00)
[2019-11-11] MEDS ORDERED: LEVOTHYROXINE SODIUM 100 MCG TABLET PO SCH (21:00)
[2019-11-12 07:50] LABS: Basophils # (auto) 0.02 K/uL (0-0.2); Basophils % (auto) 0.4 %; Eosinophils # (auto) 0.03 K/uL (0-0.5); Eosinophils % (auto) 0.6 %; Hematocrit (blood only) 33.5 % (42-52); Hemoglobin 11.1 g/dL (14.0-18.0); Immature Granulocytes # (auto) 0.02 K/uL (0.00-0.02); Immature Granulocytes % (auto) 0.4 %; Lymphocytes # (auto) 1.24 K/uL (1.2-3.4); Lymphocytes % (auto) 23.7 %; Mean Corpuscular Hemoglobin 32.1 pg (25-34); Mean Corpuscular Hgb Conc 33.1 g/dL (32-36); Mean Corpuscular Volume 96.8 fL (80-100); Mean Platelet Volume 9.7 fL (7.4-10.4); Monocytes # (auto) 0.69 K/uL (0.11-0.59); Monocytes % (auto) 13.2 %; Neutrophils # (auto) 3.24 K/uL (1.4-6.5); Neutrophils % (auto) 61.7 %; Platelet Count 106 K/uL (130-400); RDW Coefficient of Variation 12.5 % (11.5-14.5); RDW Standard Deviation 43.8 fL (36.4-46.3); Red Blood Count 3.46 M/uL (4.7-6.1); White Blood Count 5.24 K/uL (4.8-10.8)
[2019-11-12] MEDS: CLOPIDOGREL BISULFATE 75 MG TAB PO SCH (08:20)
[2019-11-12] MEDS: FINASTERIDE 5 MG TAB PO SCH (08:20)
[2019-11-12] MEDS: ROSUVASTATIN CALCIUM 20 MG TAB PO SCH (08:20)
[2019-11-12] MEDS: POTASSIUM CHLORIDE 10 MEQ TABCR PO SCH ×2 (08:20→16:38)
[2019-11-12] MEDS: FUROSEMIDE 40 MG TAB PO SCH (08:20)
[2019-11-12 08:21] LABS: BUN Creatinine Ratio 13.8 (10-20); Calcium 8.8 mg/dl (8.5-10.1); Creatinine Clr Calc Pharmacy 36.8 ml/min; Est GFR (African American) 48.6; Est GFR (Non-African American) 41.9; Potassium 3.7 mmol/L (3.5-5.1)
[2019-11-12] MEDS: HEPARIN SOD 5,000 UNIT/0.5 ML VIAL SQ SCH (08:21)
[2019-11-12] MEDS: carvediloL 25 MG TAB PO SCH ×2 (08:21→16:38)
[2019-11-12] MEDS: LOSARTAN POTASSIUM 50 MG TAB PO SCH (08:21)
[2019-11-12] MEDS: AMIODARONE 200 MG TAB PO SCH (08:21)
[2019-11-12] MEDS: sulfaSALAzine 500 MG TABLET PO SCH ×3 (08:21→16:37)
[2019-11-12] MEDS: ASPIRIN 81 MG ECTAB PO SCH (13:00)
[2019-11-12] MEDS: PANTOprazole 40 MG TAB PO SCH ×2 (13:00→16:37)
[2019-11-12] MEDS: ESCITALOPRAM OXALATE 10 MG TAB PO SCH (13:00)
[2019-11-12] MEDS: MULTIVITAMIN TAB PO SCH (13:00)
[2019-11-12] MEDS: FUROSEMIDE 20 MG TAB PO SCH (13:00)
--- NOTE | 2019-11-12 13:47 | Hospitalist Progress Note ---
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 Several old infarcts, as described above. Moderate atrophy and extensive small vessel disease. 9 mm enhancing extra-axial posterior left parafalcine lesion suggestive of a small meningioma. --Head MRA:Abrupt vessel cut off within the M1 segment right middle cerebral artery with minimal reconstitution of flow seen within the distal M2 and M3 branches is favored to be chronic as there is no acute or subacute infarct identified on the brain MRI of same day. 5 mm segment of moderate to high-grade luminal narrowing involves the right carotid terminus. No appreciable flow identified within the distal left vertebral artery which may reflect age- indeterminate occlusion/high-grade stenosis or developmentally diminutive vessel. Focal area of high-grade stenosis involves the right posterior cerebral artery. --Neck MRA:The internal carotid arteries are patent bilaterally. There is moderate stenosis at the origin of the left external carotid artery. 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 This was also seen on the neck CT dated 08/06/2008. --ECHO: No ASD --LDL:45 --Continue aspirin, Plavix, Crestor --Appreciate Neurology Input --PT/OT/ Speech eval completed --Fall/Aspiration Precautions --Neurologically back to baseline --Needs follow-up with neurology in 3 to 4 weeks upon discharge --Plan to discharge home with home health services --Neurology recommends--platelet verify study as outpatient. (2) CAD (coronary artery disease): Stable Continue aspirin, Plavix, statin, beta-millie (3) Chronic diastolic CHF (congestive heart failure): Currently Euvolemic Continue home diuretics Monitor volume status (4) Paroxysmal atrial fibrillation: Currently in sinus Continue amiodarone, carvedilol Not on anticoagulated secondary to fall risk, chronic anemia, H/O Duodenal ulcer, Epistaxis (5) HTN (hypertension): Stable Continue losartan, Carvedilol (6) CKD (chronic kidney disease), stage III: Baseline Cr: 1.3 ~1.5 Cr at baseline Monitor renal function Avoid Nephrotoxic agents as able (7) Ulcerative colitis: Continue sulfasalazine Chronic thrombocytopenia Monitor platelets We will consider to discontinue SQ heparin if platelet count continues to drop (8) DVT prophylaxis: SQ heparin Disposition Plan to discharge home with home health. Admission and Anticipated Discharge Date Admission Date: November 11, 2019 Subjective Patient is seen and examined at bedside States feeling well today No new complaints Denies recurrence of facial droop Also denies any dysphagia, difficulty with speech, change in vision, new focal weakness Denies chest pain, SOB, dizziness, nausea, abdominal pain as well Updated patient's daughter over the phone. Review of Systems Review of Systems: All systems reviewed & are unremarkable except as noted in HPI & below Physical Exam Physical Exam: Physical Exam: Vitals signs as noted above General Appearance:Moderately built and nourished, no apparent distress Head: normocephalic, Atraumatic Eyes: normal inspection, EOMI Neck: supple, Trachea midline Respiratory/Chest: Normal breath sounds, CTA Chest: +CABG scar Cardiovascular: S1, S2, + murmur Abdomen/GI:Soft, Non tender, Bowel sounds present Extremities/Musculoskelatal:normal inspection, no edema Neurologic/Psych:AAOX3, Chronic right sided hemiplegia RUE> RLE Skin: normal color, warm Results & Data Results & Data ([facility]) Vital Signs (Past 12 Hours) Vital Signs Temp Pulse Pulse Resp BP Pulse Ox 11/12/19 12:00 36.8 C 74 20 138/73 95 11/12/19 07:49 36.5 C 69 18 149/68 H 96 11/12/19 07:01 67 11/12/19 03:06 36.8 C 72 18 155/71 H 92 Laboratory Results Short CBC 11/12/19 Range/Units 07:21 WBC 5.24 (4.8-10.8) K/uL Hgb 11.1 L (14.0-18.0) g/dL Hct 33.5 L (42-52) % Plt Count 106 L (130-400) K/uL BMP 11/12/19 07:21 Sodium 141 Potassium 3.7 Chloride 103 Carbon Dioxide 31 BUN 22 H Creatinine 1.57 H Glucose 86 Calcium 8.8
[2019-11-12] MEDS ORDERED: STROKE PATIENT DISCHARGE STA (14:01)
--- NOTE | 2019-11-12 14:02 | Discharge Summary ---
Date of Service November 12, 2019 Admission HPI Per Admitting Provider 79-year-old male with PMH CVA with residual right-sided weakness, renal artery stenosis s/p stenting, HTN, paroxysmal atrial fibrillation, ulcerative colitis, CKD stage III, CAD, and other problems listed below who presents to the ED for evaluation of right-sided facial droop. Daughter is the bedside who provides some history. She reports that she was watching TV with her father when she noted the right side of his face began to droop and he was also drooling. She reports his words were garbled. He was using his left hand to wipe the drill from the right side of his face. Patient reports he remembers the episode. Says he was able to understand what his daughter was saying however could not get his words out. EMS was called. Daughter reports symptoms lasted about 15 minutes and resolved on their own. Patient reports he otherwise been feeling well recently. No chest pain or shortness of breath. Denies lightheadedness, dizziness, diaphoresis, syncopal events. No abdominal pain, nausea, vomiting, diarrhea. Denies any urinary symptoms. In the ED, patient is hemodynamically stable. Head CT is negative for acute findings. Labs are unremarkable. Admission Exam Per Admitting Provider Physical Exam Constitutional: WD/WN, vitals as above Eyes: PERRL, conjunctivae normal, anicteric sclerae ENMT: external ear and nose normal, oropharynx normal Respiratory: normal respiratory effort, lungs clear to auscultation Cardiovascular: Rate/Rhythm: regular rate and regular rhythm Vessels: normal peripheral pulses Extremities: no edema Gastrointestinal (Abdomen): normal bowel sounds, soft, nontender, no hepatosplenomegaly Musculoskeletal: Extremities: no cyanosis and no clubbing Right-sided hemiplegia from prior CVA Skin: no rashes, warm and dry Neurologic: PERRL, EOMI, accommodation nl, no face palsy, no dysarthria Psychiatric: A+Ox3, euthymic affect Principal Diagnosis Transient ischemic attack Discharge Data Allergies Allergy/AdvReac Type Severity Reaction Status Date / Time amlodipine AdvReac Intermediate lower leg Verified 11/10/19 20:35 edema pseudoephedrine AdvReac Mild INTOLERANCE-URINARY Verified 11/10/19 20:35 RETENTION Consultations 11/10/19 20:47 ED Decision to Admit Stat 11/10/19 22:56 Consult Case Management - Discharge Planning Routine Consult Neurology Routine Procedures Performed --MRI Brain:No acute intracranial findings. Several old infarcts, as described above. Moderate atrophy and extensive small vessel disease. 9 mm enhancing extra-axial posterior left parafalcine lesion suggestive of a small meningioma. --Head MRA:Abrupt vessel cut off within the M1 segment right middle cerebral a rtery with minimal reconstitution of flow seen within the distal M2 and M3 branches is favored to be chronic as there is no acute or subacute infarct identified on the brain MRI of same day. 5 mm segment of moderate to high-grade luminal narrowing involves the right carotid terminus. No appreciable flow identified within the distal left vertebral artery which may reflect age- indeterminate occlusion/high-grade stenosis or developmentally diminutive vessel. Focal area of high-grade stenosis involves the right posterior cerebral artery. --Neck MRA:The internal carotid arteries are patent bilaterally. There is moderate stenosis at the origin of the left external carotid artery. 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 This was also seen on the neck CT dated 08/06/2008. 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 Several old infarcts, as described above. Moderate atrophy and extensive small vessel disease. 9 mm enhancing extra-axial posterior left parafalcine lesion suggestive of a small meningioma. --Head MRA:Abrupt vessel cut off within the M1 segment right middle cerebral a rtery with minimal reconstitution of flow seen within the distal M2 and M3 branches is favored to be chronic as there is no acute or subacute infarct identified on the brain MRI of same day. 5 mm segment of moderate to high-grade luminal narrowing involves the right carotid terminus. No appreciable flow identified within the distal left vertebral artery which may reflect age- indeterminate occlusion/high-grade stenosis or developmentally diminutive vessel. Focal area of high-grade stenosis involves the right posterior cerebral artery. --Neck MRA:The internal carotid arteries are patent bilaterally. There is moderate stenosis at the origin of the left external carotid artery. 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 This was also seen on the neck CT dated 08/06/2008. --ECHO: No ASD --LDL:45 --Continue aspirin, Plavix, Crestor --Appreciate Neurology Input --PT/OT/ Speech eval completed --Fall/Aspiration Precautions --Neurologically back to baseline --Needs follow-up with neurology in 3 to 4 weeks upon discharge --Plan to discharge home with home health services --Neurology recommends--platelet verify study as outpatient. (2) CAD (coronary artery disease): Stable Continue aspirin, Plavix, statin, beta-millie (3) Chronic diastolic CHF (congestive heart failure): Currently Euvolemic Continue home diuretics Monitor volume status (4) Paroxysmal atrial fibrillation: Currently in sinus Continue amiodarone, carvedilol Not on anticoagulated secondary to fall risk, chronic anemia, H/O Duodenal ulcer, Epistaxis (5) HTN (hypertension): Stable Continue losartan, Carvedilol (6) CKD (chronic kidney disease), stage III: Baseline Cr: 1.3 ~1.5 Cr at baseline Monitor renal function Avoid Nephrotoxic agents as able (7) Ulcerative colitis: Continue sulfasalazine Chronic thrombocytopenia Monitor platelets We will consider to discontinue SQ heparin if platelet count continues to drop (8) DVT prophylaxis: SQ heparin Disposition Plan to discharge home with home health. Total Time Total Time Spent Total Time Spent (In Minutes): 40 minutes Total Time Includes: Examination of the Patient, Discharge Planning, Medication Reconciliation, Communication With Other Providers and Other Discharge Plan Discharge Items Patient Disposition: Home - Home Health Services Reason For Visit: TIA Discharge Diagnosis: Transient ischemic attack Activity: Resume your previous activity Exercise/Sports: Gradually increase as tolerated Non-emergency contact: Primary Care Provider and Neurologist Call non-emergency contact if: you have any medication questions, your symptoms worsen, your pain is not controlled, your pain is worsening, your pain is unusual for you, your pain is concerning for you and you have a fever Follow-up/Referrals: Natalie Agee MD [Primary Care Provider] - 11/18/19 2:20 pm (Date & Time 11/18/2019 2:20 PM Provider Natalie Agee MD Department Internal Medicine [facility] ) Gregory Garcia MD [Physician] - 12/03/19 11:20 am (Please follow up with Karli Decker PA-C at [facility] on Friday12/03/2019 at 11:20 am. Please arrive to the office 15 minutes early for your appointment. If you are unable to keep this appointment, please call the office to reschedule at [phone]. ) Diet: Heart Healthy Addtl Attending Provider Instructions: Follow-up with your primary care physician Dr. Agee on November 18, 2019 at 2:20 PM Follow-up with your neurologist Dr.John Garcia in 3-4 weeks as recommended by your neurologist Get blood test (Platelet Verify Study) as outpatient and follow up with your physician with results. Seek immediate medical attention if your symptoms reoccur or worsen Risk Factors for Stroke: You can reduce your chances of stroke by working with your medical provider to adopt a healthy lifestyle. Some specific ways to lower your chance of stroke are: * If you are a smoker, now is the time to stop smoking cigarettes * If you are diabetic, improve the control of your blood sugars * Avoid excessive amounts of alcohol * Control high blood pressure * Lose weight if you are overweight * Be sure to lead an active lifestyle * Eat a healthy diet low in salt, cholesterol and fat You should know about other risk factors for stroke that you are unable to control. These include: * Age 55 years or older * Male gender * Certain racial groups: , or / * Family History of Stroke, Mini stroke or Heart Attack * Sickle Cell Disease Follow Up: It is important for you to keep your follow up appointments with your medical provider. Who to Call and When: Medical Emergencies: Call 911 immediately if you experience any of the following warning signs and symptoms of Stroke: * Sudden numbness or weakness of the face, arm or leg, especially on one side of the body * Sudden confusion, trouble speaking or understanding * Sudden trouble seeing in one or both eyes * Sudden trouble walking, dizziness, loss of balance or coordination * Sudden severe headache with no cause Do not delay calling 911 if you experience any warning signs or symptoms of a stroke. Delay in seeking medical attention may affect what treatments can be given to you. . Pending Studies at Discharge: No Stand-Alone Forms: My [facility], Smoking Cessation Medications and DC Order Prescriptions: Continued acetaminophen 500 mg capsule 500 mg PO Q6H PRN (Reason: Fever Or Pain) RF: 0 amiodarone 200 mg Tablet 200 mg PO QAM RF: 0 aspirin [Aspir-81] 81 mg Tablet,Delayed Release (Dr/Ec) 81 mg PO DAILY@1300 RF: 0 clopidogrel [Plavix] 75 mg Tablet 75 mg PO QAM RF: 0 folic acid 1 mg Tablet 1 mg PO HS RF: 0 furosemide [Lasix] 20 mg Tablet 40 mg PO DAILY RF: 0 sulfasalazine 500 mg Tablet 500 mg PO QID RF: 0 tamsulosin 0.4 mg Capsule 0.4 mg PO QPM@1700 RF: 0 pantoprazole 40 mg Tablet,Delayed Release (Dr/Ec) 40 mg PO BID RF: 0 levothyroxine 100 mcg Tablet 100 mcg PO HS RF: 0 finasteride 5 mg tablet 5 mg PO QAM RF: 0 carvedilol 25 mg Tablet 25 mg PO BID17 RF: 0 montelukast 10 mg tablet 10 mg PO DAILY@1700 RF: 0 rosuvastatin 20 mg Tablet 20 mg PO QAM RF: 0 multivitamin Tablet 1 tab PO .DAILY @ 1300 RF: 0 potassium chloride [Klor-Con M20] 20 mEq tablet,ER particles/crystals 10 meq PO BID17 RF: 0 mirtazapine [Remeron] 15 mg Tablet 7.5 mg PO .DAILY @ 1700 RF: 0 losartan 100 mg tablet 50 mg PO QAM RF: 0 escitalopram oxalate 10 mg tablet 10 mg PO .DAILY @ 1300 RF: 0 furosemide 20 mg tablet 20 mg PO .DAILY @ 1300 RF: 0 Discharge Orders: Discharge Order (Routine); Ordered 11/12/19 Ordered By: Robbie Mccoy/Other Patient Handouts: Symptoms of Stroke, What Is a TIA? Admission Data Admit Date/Time: 11/11/19 14:33 Attending Provider: Robbie Mendoza Admit Provider: Shannon Soto Primary Care Provider: Natalie Agee Other Providers: Parish Snyder ; Gregory Garcia Other Interventions: Discharge Summary Assessment (RN) Last Done: 11/12/19 14:18
[2019-11-12] MEDS: MIRTAZAPINE TAB 15 MG TAB PO SCH (16:37)
[2019-11-12] MEDS: MONTELUKAST SODIUM 10 MG TABLET PO SCH (16:37)
[2019-11-12] MEDS: TAMSULOSIN HCL 0.4 MG CAP PO SCH (16:38)
== END 2019-11-12 16:43 | disposition home health service (06) | DRG 69 ==
LOC: 2S 19:28 → ED 19:28 → 2S 22:38